=== PATIENT | female | born 1940 | race Caucasian/White ===

== ENCOUNTER → 2023-09-08 07:37 | Outpatient (REF) | payer MEDICARE, OTHER, SELFPAY ==
[2023-09-08 09:47] LABS: % Eosinophils 2.4 % (0-6); % Immature Granulocytes 0.3 % (0-0.5); % Lymphocytes 36.9 % (20.5-51.1); % Monocytes 8.2 % (1.7-9.3); % Neutrophils 51.2 % (42.2-75.2); Absolute Basophils 0.1 10^3/uL (0-0.2); Absolute Eosinophils 0.2 10^3/uL (0-0.7); Absolute Lymphocytes 2.3 10^3/uL (1.2-3.4); Absolute Monocytes 0.5 10^3/uL (0.1-0.6); Absolute Neutrophils 3.2 10^3/uL (1.4-6.5); Hematocrit 39.9 % (37.0-47.0); Hemoglobin 12.8 g/dL (12.0-16.0); Mean Corp Hgb Conc. 32.1 g/dL (33.0-37.0); Mean Corpuscular Hgb 29.2 pg (27.0-31.0); Mean Corpuscular Volume 90.9 fL (81.0-99.0); Mean Platelet Volume 9.7 fL (7.4-10.4); Nucleated Red Blood Cells % 0 %; Platelet Count 197 10^3/uL (130-400); Red Blood Cell Count 4.39 10^6/uL (4.20-5.40); Red Cell Dist. Width 14.6 % (11.5-14.5); White Blood Cell Count 6.2 10^3/uL (4.8-10.8)
[2023-09-08 12:00] LABS: ALT (SGPT) 11 U/L (0-35); AST (SGOT) 22 U/L (14-36); Albumin 4.2 g/dl (3.5-5.0); Alkaline Phosphatase 52 U/L (38-126); Blood Urea Nitrogen 22 mg/dl (7-17); Calcium 9.5 mg/dl (8.4-10.2); Carbon Dioxide 30 mmol/L (22-30); Chloride 100 mmol/L (98-107); Glucose 93 mg/dl (70-99); HDL Cholesterol 94 mg/dl; LDL Cholesterol, Calculated 202 mg/dl; Potassium 3.9 mmol/L (3.5-5.1); Sodium 136 mmol/L (135-145); Total Bilirubin 0.8 mg/dl (0.2-1.3); Total Cholesterol 311 mg/dl (50-199); Total Protein 6.7 g/dl (6.3-8.2); Triglyceride 76 mg/dl (10-149); Very Low Density Lipoprotein 15 mg/dl (0-30); eGFR > 60.00
[2023-09-08 12:28] LABS: TSH 1.95 uIU/ml (0.47-4.68)
[2023-09-08 13:04] LABS: Folate 10.1 ng/ml (2.76-20); Vitamin B12 419 pg/ml (239-931)
== END ==
LOC: HWRAD 07:37
PROVIDERS: ATTENDING PHYSICIAN Internal Medicine
DX: R47.89 Other speech disturbances (principal); I10 Essential (primary) hypertension; G30.1 Alzheimer's disease with late onset; E78.2 Mixed hyperlipidemia; K21.9 Gastro-esophageal reflux disease without esophagitis
CPT/HCPCS: 36415; 70450; 80053; 80061; 82607; 82746; 84443; 85025

== ENCOUNTER 2024-05-26 14:36 | Emergency (ER) | payer MEDICARE, OTHER, SELFPAY ==
--- NOTE | 2024-05-26 14:53 | ED.GENMED ---
ED Provider Triage
<BANDAR Barroso - Last Filed: 05/26/24 14:59>
-
Patient seen by provider in Triage?: Seen in Triage
Attestation: A medical screening examination has been initiated by a qualified medical provider. Based on the assessment performed at this time, it has been determined that an emergent medical condition may exist and the patient has been informed
that further medical evaluation and possible additional diagnostic testing may be needed.
HPI: Patient is an 84-year-old female who presents to the ER after mechanical fall. Patient tripped and fell landing on her right knee and left wrist. Pt also c/o of right upper arm pain.
GENERAL: Alert , in no apparent distress
EYE: No visual abnormalities.
NECK: Trachea midline
ENT: No visible abnormalities.
LUNGS: No acute respiratory distress
NEUROLOGICAL: Alert and oriented
SKIN: Skin intact. No visible changes.
MUSCULOSKELETAL: Moving extremities normally
PSYCH: Normal and appropriate interaction.
This is a medical evaluation conducted in person to initiate diagnostic evaluation and provide initial therapeutics. Please see further documentation by the treating clinician.
History of Present Illness
<BANDAR Barroso - Last Filed: 05/26/24 14:59>
General
Chief Complaint: Fall
Time Seen by Provider: 05/26/24 15:04
<Anish Thompson PA-C - Last Filed: 05/26/24 23:26>
History of Present Illness
History of Present Illness:
84-year-old female presents to the emergency department for ration of right upper arm left wrist pain after a fall. She states she was try to mitchell to her car because it was cold outside when she lost her balance. Denies head strike or loss of
consciousness. 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 Primarily complaining of left wrist pain, obvious deformity noted
Past History
<BANDAR Barroso - Last Filed: 05/26/24 14:59>
Past History
ED Past Medical History: HTN, Hypercholesterolemia and Other (Macular degeneration)
ED Past Surgical History: Appendectomy, Gynecological, Orthopedic and Tonsilectomy
Social History
Tobacco: Non-smoker
Alcohol: Occasional
Drug: None
Personal:
Living: alone
Employment: Not employed
Family History
Family History: Other
Review of Systems
<Anish Thompson PA-C - Last Filed: 05/26/24 23:26>
Review of Systems
Allergies reviewed?: Yes
All Other Systems: ROS reviewed and negative except as documented in HPI and ROS
Phy Exam
<Anish Thompson PA-C - Last Filed: 05/26/24 23:26>
Physical Exam
Physical Exam:
GEN: Well appearing, NAD, WDWN
HEENT: Normocephalic and atraumatic, oral mucosa moist, no scleral icterus
Cardiac: Regular rate
Lung: No respiratory distress, no tachypnea
MSK: Deformity of the left wrist, neurovascularly intact distal to the injury. Tenderness to the right proximal upper arm with no obvious deformity, right upper extremity range of motion profoundly limited due to pain. No deformity or swelling to
the right status post bilateral TKA
Skin: Good color, no pallor or jaundice, no rashes
Neuro: AO x3, moves all extremities freely
Psych: Calm, cooperative
Course
<BANDAR Barroso - Last Filed: 05/26/24 14:59>
Orders/Labs/Results
Orders:
Orders
05/26/24 14:56
Humerus, Right 2 Views [CR Humerus - Right Min 2 View*] Urgent
Comment:
Reason For Exam: trauma
Knee, Right 4 or More Views [CR Knee- Right 4 Or More View*] Urgent
Comment:
Reason For Exam: trauma
Wrist, Left 3 Views CR [CR Wrist - Left Min 3 Views] Urgent
Comment:
Reason For Exam: trauma
05/26/24 14:[address] Cervical Spine W/o Iv Contr Urgent
Comment:
Reason For Exam: trauma
CT Head W/o Iv Contrast Urgent
Comment:
Reason For Exam: trauma
05/26/24 15:31
Fentanyl Citrate/Pf [Sublimaze] 50 mcg IV NOW STA
05/26/24 17:59
CR Wrist - Left Min 2 Views Urgent
Reason For Exam: post reduction
Vital Signs
Initial and Last Documented VS:
Initial Vital Signs
Temp Pulse Resp BP Pulse Ox
98.1 F 78 18 200/105 98
05/26/24 14:54 05/26/24 14:54 05/26/24 14:54 05/26/24 14:54 05/26/24 14:54
Last Documented Vital Signs
Temp Pulse Resp BP Pulse Ox
98.1 F 75 15 180/98 98
05/26/24 14:54 05/26/24 19:39 05/26/24 19:39 05/26/24 19:39 05/26/24 19:39
<Anish Thompson PA-C - Last Filed: 05/26/24 23:26>
Orders/Labs/Results
Orders:
Orders
05/26/24 14:56
Humerus, Right 2 Views [CR Humerus - Right Min 2 View*] Urgent
Comment:
Reason For Exam: trauma
Knee, Right 4 or More Views [CR Knee- Right 4 Or More View*] Urgent
Comment:
Reason For Exam: trauma
Wrist, Left 3 Views CR [CR Wrist - Left Min 3 Views] Urgent
Comment:
Reason For Exam: trauma
05/26/24 14:59
CT Cervical Spine W/o Iv Contr Urgent
Comment:
Reason For Exam: trauma
CT Head W/o Iv Contrast Urgent
Comment:
Reason For Exam: trauma
05/26/24 15:31
Fentanyl Citrate/Pf [Sublimaze] 50 mcg IV NOW STA
05/26/24 17:59
CR Wrist - Left Min 2 Views Urgent
Reason For Exam: post reduction
Vital Signs
Initial and Last Documented VS:
Initial Vital Signs
Temp Pulse Resp BP Pulse Ox
98.1 F 78 18 200/105 98
05/26/24 14:54 05/26/24 14:54 05/26/24 14:54 05/26/24 14:54 05/26/24 14:54
Last Documented Vital Signs
Temp Pulse Resp BP Pulse Ox
98.1 F 75 15 180/98 98
05/26/24 14:54 05/26/24 19:39 05/26/24 19:39 05/26/24 19:39 05/26/24 19:39
Procedures
<Anish Thompson PA-C - Last Filed: 05/26/24 23:26>
Joint/Fracture Reduction
Left Wrist:
Indication for procedure:: Displaced distal radius fracture
Procedure completed by: Anish Thompson PA-C
Joint reduced: without anesthesia
Anesthesia/sedation: 1% Lidocaine and Other (hematoma block)
Injury was: closed
Further treatement: needs further treatment
Post reduction exam: stable
Capillary Refill: normal
Normal distal neurovascular exam?: Yes
<Anish Thompson PA-C - Last Filed: 05/26/24 23:26>
MDM/Problems Addressed
MDM/Problems Addressed:
Left distal radius fracture was reduced at bedside after hematoma block and splinted with a sugar-tong splint. Outpatient orthopedic follow-up advised. Discharged in the care of her daughter
<Anish Thompson PA-C - Last Filed: 05/26/24 23:26>
*Critical Care Note
Total Time (30-74mins, 75-104mins- exclusive of procedures): Not Applicable
ED Attending Note
<BANDAR Barroso - Last Filed: 05/26/24 14:59>
-
Portions of this chart may have been created with voice recognition software.� Occasional wrong word or��sound alike� substitutions may have occurred due to the inherent limitations of voice recognition software.
Discharge Plan
Departure
Patient Disposition: Home (Routine Discharge)
Date of Disposition: 05/26/24
Time of Disposition: 18:27
Patient with high blood pressure during this ER visit?: No
Discharge Problem:
Distal radius fracture, left
Instructions: Colles' Fracture (DC)
Prescriptions:
No Action
rosuvastatin 20 MG tablet
20 mg PO QPM
pantoprazole 40 MG tablet,delayed release (DR/EC)
40 mg PO DAILY 0RF
apixaban [Eliquis] 5 MG tablet
5 mg PO BID
ciprofloxacin HCl 500 MG tablet
500 mg PO Q12
alprazolam 0.5 MG tablet
0.5 mg PO BID PRN (Reason: severe anxiety) Qty: 12 0RF
Referrals:
Fabricio Alvarado MD [Active] - Call in 1-3 days for appt
Activity Restrictions/Additional Instructions:
Return to the ER if you develop numbness of the hand
You will need to call the listed Orthopedic doctor tomorrow to schedule a follow up appointment
The wrist splint must stay on at all times, do not remove for any reason; it CANNOT GET WET
Unrelated to your wrist, your CT scan of your neck showed a lesion in your 7th cervical (neck) vertebrae. It is not clear whether this is a benign lesion or a malignant lesion. This should be followed up with an MRI or bone scan, which can be
ordered by your primary care physician
Interventions
Interventions:
*Risk Screen - Suicide Last Done: 05/26/24 14:54
*General Assessment Last Done: 05/26/24 14:54
*Neglect/Abuse Screening Last Done: 05/26/24 14:54
*Nursing Disposition Last Done: 05/26/24 19:39
ED-Musculoskeletal Assessment Last Done: 05/26/24 16:43
ED- Neurological Assessment Last Done: 05/26/24 16:42
ED-Skin Assessment Last Done: 05/26/24 16:43
Discharge Date and Time
Discharge Date/Time: 05/26/24 19:40
Print Language: CHINESE
[2024-05-26 14:54] VITALS: BP 200/105
[2024-05-26] MEDS: SUBLIMAZE 50 MCG IV (15:58)
[2024-05-26 19:39] VITALS: BP 180/98
== END 2024-05-26 19:40 | disposition home or self-care (01) ==
LOC: EMR 14:36
PROVIDERS: EMERGENCY PHYSICIAN Emergency Medicine
DX: S52.532A Colles' fracture of left radius, initial encounter for closed fracture (principal); S52.615A Nondisplaced fracture of left ulna styloid process, initial encounter for closed fracture; W01.0XXA Fall on same level from slipping, tripping and stumbling without subsequent striking against object, initial encounter
CPT/HCPCS: 25605; 99285; 96374; 70450; 72125; 73060; 73100; 73110; 73564

== ENCOUNTER 2024-05-28 08:41 | Emergency (ER) | payer MEDICARE, OTHER, SELFPAY ==
[2024-05-28 08:44] VITALS: BP 168/81
[2024-05-28] MEDS: ULTRAM 25 MG PO (09:45)
[2024-05-28 09:51] VITALS: BMI 24.6
--- NOTE | 2024-05-28 10:31 | ED.GENMED ---
History of Present Illness
General
Chief Complaint: Musculo-Skeletal Complaint
Source: patient and family (Son)
Exam Limitations: none
Time Seen by Provider: 05/28/24 09:12
Nursing documentation reviewed up to this point in time: agreed with
History of Present Illness
History of Present Illness:
84-year-old female with history as documented presents to the emergency room with uncontrolled left wrist pain from a broken wrist. Patient was seen in the emergency room 2 days ago after a mechanical slip and fall on ice with a left wrist
fracture. Fracture was reduced and splinted and she was discharged with a referral to orthopedist. Patient reports that she has been unable to sleep and is having severe pain from her wrist fracture which prompted her to come back to the ER. She
has been taking Tylenol [id number] and this morning had a dose of her son's oxycodone 5 mg and this did not help with the pain. She denies any additional falls or trauma.
Past History
Past History
ED Past Medical History: HTN, Hypercholesterolemia and Other (Macular degeneration)
ED Past Surgical History: Appendectomy, Gynecological, Orthopedic and Tonsilectomy
Social History
Tobacco: Non-smoker
Alcohol: Occasional
Drug: None
Personal:
Living: alone
Employment: Not employed
Family History
Family History: Other
Review of Systems
Review of Systems
All Other Systems: ROS reviewed and negative except as documented in HPI and ROS
Musculoskeletal: Reports joint pain
Phy Exam
Physical Exam
Physical Exam:
General: Well appearing and non-toxic
HEENT: protecting airway
Neck: appears supple
CV: No evidence of cyanosis
Resp: No accessory muscle use
Abd: Non-distended
Extremities: Patient has a sugar-tong splint in place on the left arm; she does have brisk capillary refill in all digits distally; I took the splint down, she does have some swelling of the wrist and bruising but still strong left radial pulse,
neuro intact distal left upper extremity
Neuro: Alert
Psych: Normal affect
Skin: Intact
Scores
Heart Failure Risk
Heart Failure Risk Score: Not Applicable
Heart Score for Chest Pain Patients
STEMI patient?: Not applicable
Withdrawal Assessment of Alcohol
Withdrawal Assessment Completed?: Not applicable
Course
Orders/Labs/Results
Orders:
Orders
05/28/24 09:30
CR Wrist - Left Min 3 Views Urgent
Comment:
Reason For Exam: worsening wrist pain
05/28/24 09:32
Tramadol HCl [Ultram] 25 mg PO ONCE ONE
05/28/24 09:52
Case Management Consult ONCE
Case Management Consult: Other
Comment: family request
05/28/24 10:27
Ketorolac [Toradol] 30 mg IM NOW STA
Vital Signs
Initial and Last Documented VS:
Initial Vital Signs
Temp Pulse Resp BP Pulse Ox
36.8 C 88 20 168/81 98
05/28/24 08:44 05/28/24 08:44 05/28/24 08:44 05/28/24 08:44 05/28/24 08:44
Last Documented Vital Signs
Temp Pulse Resp BP Pulse Ox
36.8 C 88 20 168/81 98
05/28/24 08:44 05/28/24 08:44 05/28/24 08:44 05/28/24 08:44 05/28/24 08:44
MDM/Problems Addressed
Differential Diagnosis Includes:
Wrist fracture
MDM/Problems Addressed:
84-year-old female presents to the emergency room with uncontrolled pain from left wrist fracture. Hypertensive otherwise normal vitals. Physical exam as above. She does have brisk capillary refill with splint in place; I took the splint down and
she has a strong radial pulse, bruising and swelling around the wrist. I applied extra padding around the wrist as well as the elbow. I loosened the splint when reapplying. Patient did have significant improvement in her pain with this measure
but still reporting pain and requesting additional medications. Repeat x-ray no changes. She was given Toradol and tramadol here and will start on regimen of Tylenol/Motrin [id number], aggressive icing and tramadol for breakthrough pain.
Patient and family are comfortable with this. Family is concerned about her functional state recently with her wrist fracture and requested to speak to case management�I consulted case management to evaluate. Case management provided resources
offered visiting nurse and other help for home. Patient and family comfortable discharge at this point. All questions answered.
*Pulse Oximetry
Patient hypoxic: no
*Critical Care Note
Total Time (30-74mins, 75-104mins- exclusive of procedures): Not Applicable
Data Reviewed
Review of Other/Old Records Reveals: Radiology Studies
Source: patient, records and family
ED Attending Note
-
Portions of this chart may have been created with voice recognition software.� Occasional wrong word or��sound alike� substitutions may have occurred due to the inherent limitations of voice recognition software.
Discharge Plan
Departure
Patient Disposition: Home (Routine Discharge)
Date of Disposition: 05/28/24
Time of Disposition: 11:07
Patient with high blood pressure during this ER visit?: Yes
Discharge Problem:
Fracture of wrist
Instructions: Wrist Fracture (DC), Using Cold for Pain
Prescriptions:
New
tramadol 50 mg tablet
50 mg PO Q8H PRN (Reason: Pain) Qty: 14 0RF
Discontinued
Eliquis 5 MG tablet
5 mg PO BID
No Action
rosuvastatin 20 MG tablet
20 mg PO QPM
pantoprazole 40 MG tablet,delayed release (DR/EC)
40 mg PO DAILY 0RF
ciprofloxacin HCl 500 MG tablet
500 mg PO Q12
alprazolam 0.5 MG tablet
0.5 mg PO BID PRN (Reason: severe anxiety) Qty: 12 0RF
Referrals:
Fabricio Alvarado MD [Active] - Call in 1-3 days for appt
Amol Kumar MD [Family Provider] -
Activity Restrictions/Additional Instructions:
You were seen in the emergency room because you are having uncontrolled pain from your broken wrist. The emergency room I applied extra padding to your splint and loosened the splint. You were treated with pain medications. For the next 72 hours
you should consistently ice your wrist over top of the splint�apply ice for 15 minutes at a time and try to do this 3-5 times daily at least. You should take the following pain medications to control your symptoms:
Tylenol 1000 mg every 6 hours
Ibuprofen 400 mg every 6 hours
Tramadol 50 mg every 8 hours as needed
You should follow-up with the orthopedic doctor as instructed.
Thank you for visiting the Emergency Department at [facility].
1. Please schedule a follow up appointment as directed. Call first thing tomorrow morning to make an appointment.
2. If indicated, please take your medications as instructed and indicated on discharge paperwork.
3. If any of your symptoms do not improve, or persist, or become more severe within 6-12 hours, please return to the emergency department for further care.
4. Please return to the emergency department if you develop a headache, neck pain/stiffness, fever greater than 100.4F, chest pain, shortness of breath, persistent nausea, vomiting, slurred speech, difficulty walking, numbness/tingling, weakness,
signs of infection or any other symptoms that are worrisome to you.
Please call [phone] if you have any questions.
Interventions
Interventions:
*Risk Screen - Suicide Last Done: 05/28/24 08:46
*General Assessment Last Done: 05/28/24 09:16
*Neglect/Abuse Screening Last Done: 05/28/24 09:16
ED- Fall Risk Assessment Last Done: 05/28/24 09:16
*ED COVID-19 Vaccine History Last Done: 05/28/24 09:16
*Nursing Disposition Last Done: 05/28/24 11:09
ED-Musculoskeletal Assessment Last Done: 05/28/24 09:16
Discharge Date and Time
Print Language: SPANISH
--- NOTE | 2024-05-28 10:43 | CM ---
CM met with patient and son in room. Patient confirmed that she lives with daughter. Son stated that often time patient's daughter gets frustrated with patient. CM discussed SNF and that it will be private pay respite. CM discussed home care.
Patient declined skilled services. CM provided written information on private pay nurse's aides.
CM will remain available.
[2024-05-28] MEDS: TORADOL 30 MG IM (10:57)
== END 2024-05-28 11:45 | disposition home or self-care (01) ==
LOC: EMR 08:41
PROVIDERS: EMERGENCY PHYSICIAN Emergency Medicine; FAMILY PHYSICIAN Specialist
DX: S52.572A Other intraarticular fracture of lower end of left radius, initial encounter for closed fracture (principal); S52.615A Nondisplaced fracture of left ulna styloid process, initial encounter for closed fracture; W00.0XXA Fall on same level due to ice and snow, initial encounter; I10 Essential (primary) hypertension; E78.00 Pure hypercholesterolemia, unspecified; H35.30 Unspecified macular degeneration
CPT/HCPCS: 99283; 29125; 96372; 73110

== ENCOUNTER 2024-06-07 04:14 | Inpatient (IN) | payer MEDICARE, OTHER, SELFPAY ==
[2024-06-07] VITALS (58 sets, daily range): BP systolic 55–136; BP diastolic 36–91; BMI 20.4; BMI 20.3
[2024-06-07 02:29] LABS: Hematocrit 37.9 % (37.0-47.0); Hemoglobin 12.5 g/dL (12.0-16.0); Mean Corpuscular Hgb 29.1 pg (27.0-31.0); Mean Corpuscular Volume 88.1 fL (81.0-99.0); Mean Platelet Volume 9.6 fL (7.4-10.4); Platelet Count 256 10^3/uL (130-400); Red Cell Dist. Width 14.6 % (11.5-14.5); White Blood Cell Count 8.4 10^3/uL (4.8-10.8)
[2024-06-07 02:38] LABS: Lactic Acid 3.5 mmol/L (0.7-2.0)
[2024-06-07 02:40] LABS: ALT (SGPT) 20 U/L (0-35); AST (SGOT) 27 U/L (14-36); Albumin 4.2 g/dl (3.5-5.0); Alkaline Phosphatase 82 U/L (38-126); Blood Urea Nitrogen 20 mg/dl (7-17); Calcium 9.7 mg/dl (8.4-10.2); Carbon Dioxide 22 mmol/L (22-30); Chloride 101 mmol/L (98-107); Estimated Creatinine Clearance 51 ml/min; Glucose 161 mg/dl (70-99); Potassium 4.2 mmol/L (3.5-5.1); Sodium 136 mmol/L (135-145); Total Bilirubin 0.7 mg/dl (0.2-1.3); Total Protein 6.8 g/dl (6.3-8.2); eGFR > 60.00
--- NOTE | 2024-06-07 02:44 | ED.GENMED ---
History of Present Illness
General
Chief Complaint: Chest Pain
Source: patient and family (daughter)
Time Seen by Provider: 06/07/24 01:59
History of Present Illness
History of Present Illness:
84-year-old female presents to the emergency room with crushing chest pain. Patient states she awoke from sleep around 12:00 with this discomfort. She rates it a 10 out of 10. No history of MIs. Nothing seems to make the pain better or worse.
Chest discomfort radiates to the neck. She denies having episodes similar to this in the past. Medics gave 4 baby aspirin en route.
Past History
Past History
ED Past Medical History: HTN, Hypercholesterolemia and Other (Macular degeneration)
ED Past Surgical History: Appendectomy, Gynecological, Orthopedic and Tonsilectomy
Social History
Tobacco: Non-smoker
Alcohol: Occasional
Drug: None
Personal:
Living: alone
Employment: Not employed
Family History
Family History: Other
Phy Exam
Physical Exam
Physical Exam:
General: Awake, appears stated age, in acute distress from chest pain
Vitals: Hypotensive, tachycardic
Head: Atraumatic
Eyes: Pupils equal, EOMI
Throat: Airway intact, no exudates
Neck: Trachea midline
Lungs: Clear and equal b/l
Heart: Regular rate, no murmurs
Abd: Soft, Nontender, No pulsatile mass
Neuro: Nonfocal
Skin: Warm, dry, no rash
Extremities: pulses equal b/l, no edema
Scores
Heart Score for Chest Pain Patients
STEMI patient?: Yes
Course
Orders/Labs/Results
Orders:
Orders
06/07/24 02:15
Complete Blood Count/With Diff Urgent
Comprehensive Metabolic Panel Urgent
PTT Urgent
Troponin I Urgent
06/07/24 02:17
Lactic Acid Urgent
06/07/24 02:22
Fentanyl Citrate/Pf [Sublimaze] 100 mcg .ROUTE .STK-MED ONE
06/07/24 02:28
ABO2 Urgent
BBK Wristband Number:
Associate notified that ABO2 has been ordered: [id number]
Date: 06/07/24
Time: 02:25
Director Of Search Engine Marketing ID: [id number]
06/07/24 02:44
Fentanyl Citrate/Pf [Sublimaze] 100 mcg .ROUTE .STK-MED ONE
Heparin 10,000 units .ROUTE .STK-MED ONE
Heparin 1000 Units/500 ml [Heparin] 1,000 units in 500 ml .ROUTE .STK-MED
Heparin Sodium,Porcine/Ns/Pf [Heparin 2000 Units/1000 ml] 2,000 unit in 1,000 ml .ROUTE .STK-MED
Lidocaine HCl/Pf [Xylocaine-Mpf 1% Vial] 100 mg .ROUTE .STK-MED ONE
Midazolam HCl [Versed] 2 mg .ROUTE .STK-MED ONE
Verapamil Injectable [Isoptin/Verapamil Injection] 5 mg .ROUTE .STK-MED ONE
06/07/24 02:45
Heparin 1000 Units/500 ml [Heparin] 1,000 units in 500 ml .ROUTE .STK-MED
Nitroglycerin [Tridil] 1,500 mcg .ROUTE .STK-MED ONE
06/07/24 02:48
Lidocaine HCl/Pf [Xylocaine-Mpf 1% Vial] 50 mg .ROUTE .STK-MED ONE
06/07/24 02:57
Fentanyl Citrate/Pf [Sublimaze] 100 mcg .ROUTE .STK-MED ONE
Heparin 5,000 units .ROUTE .STK-MED ONE
06/07/24 02:58
Ticagrelor [Brilinta] 180 mg .ROUTE .STK-MED ONE
06/07/24 03:20
Diltiazem HCl [Cardizem] 25 mg .ROUTE .STK-MED ONE
06/07/24 03:48
Admit Patient As Directed
Co-Sign Provider:
Level of Care: Inpatient admission
Assign to:: IVU
Physician / Group: Chung
Diagnosis: Atrial fibrillation and chest discomfort
Reason for Hospitalization: atrial fibrillation and chest discomfort
Expected length of stay greater than two midnights?: Yes
ELOS- Estimated Length of Stay in days: 3
I certify the patient meets the requirements for IP care: Yes
Code Status As Directed
Resuscitation Status: Full Code
Activity As Directed
Activity Level: Bedrest
Comment: refer to hemostasis device used for bedrest duration, then ambulate ad lorrie
Card Punching Machine Operator Procedure As Directed
Cardiac Cath Procedure: cardiac catheterization
Femoral Artery Hemostasis Method As Directed
Procedure performed:: Cardiac Catheterization
Type of femoral hemostasis method used:: Internal Closure Device
Duration of bedrest (hours):: 3
Call provider if:: hematoma present after hemostasis achieved
Head of Bed-Restrictions As Directed
Comment: may elevate head of bed 30 degrees
Notify MD As Directed
Notify physician if: immediately for chest pain or bleeding from access site(s)
Site Checks As Directed
Check access site for bleeding/hematoma: Yes
Comment: on arrival, Q15min x4, Q30min x2, Q1 hr x2, Q2 hr x2, Q4 hr or per
protocol
Vascular Checks As Directed
Location: distal to access site - pulse check
Frequency: Other
Comment: on arrival, Q15min x4, Q30min x2, Q1 hr x2, Q2 hr x2, Q4 hr or per protocol
Vital Signs As Directed
Frequency: Other
Additional Instructions:: on arrival, Q15min x4, Q30min x2, Q1 hr x2, Q2 hr x2, then Q4 hr or per unit
protocol
PRN Pain Medication Management As Directed
May give lesser potent ordered pain med per pt: Yes
preference::
Protocol:: Medication orders for pain may be administered in a
manner that supports deferring to patient preference
when the pt is:
- Requesting an ordered lesser potent pain medication.
Least to most potent pain medications are defined
as: acetaminophen < NSAID < tramadol < opioids
(morphine, oxycodone, hydromorphone).
- Requesting a lesser dose of the same medication IF
ORDERED.
- Requesting a less intrusive route of administration
if both routes are prescribed by the provider (PO <
IV).
06/07/24 03:50
Heparin Protocol- PTT Orders As Directed
PTT per Heparin protocol: -Obtain CBC and baseline PTT - if not already collected.
-Obtain PTT 6 hours from start of infusion. Then, every 6 hours until 2 consecutive
PTT's are therapeutic. Then, PTT Daily.
-With each rate change, obtain PTT every 6 hours until 2 consecutive PTT's are
therapeutic. Then, PTT Daily.
Notify MD As Directed
Notify physician if: PTT is greater than or equal to 200.
06/07/24 03:56
ECG [Electrocardiogram (*1)] Urgent
Reason for Study: Chest Pain
Cardiology Consult: Maurilio Wilkes
06/07/24 03:59
Echo 2D MMode Color/Doppler Routine
Reason for Study: chest pain and afib
Cardiology Consult: Maurilio Wilkes
06/07/24 04:00
Diltiazem 125 mg/125 ml Nss [Cardizem] 125 mg in 125 ml IV PER PROTOCOL
Initial dose in mg/hr, then titrate:: 10
Titrate to keep:: Heart rate 80-100 bpm
Titrate by mg/hr:: 5 mg/hr
Frequency of titrations (minutes):: 15
Maximum dose in mg/hr:: 15
Flush (0.9% Sodium Chloride) [Flush (Nss)] See Dose Instructions IV PER PROTOCOL
06/07/24 04:09
Lorazepam [Ativan] 0.5 mg PO Q4HPRN PRN
06/07/24 04:11
Acetaminophen [Tylenol] 650 mg PO Q4HPRN PRN
06/07/24 05:02
Type+Screen Urgent
BBK Wristband Number:
Complete Blood Count/No Diff Urgent
Comment: Obtain baseline before beginning heparin infusion if not already collected
PTT Urgent
Comment: Obtain baseline before beginning heparin infusion if not already collected
Troponin I Q6H
06/07/24 06:00
ECG [Electrocardiogram (*1)] Q6
Reason for Study: Chest Pain
Cardiology Consult: Maurilio Wilkes
06/07/24 08:00
Aspirin Chewable [Low Strength Aspirin] 81 mg PO DAILY
Heparin 05852 Units/250 ml 25,000 units in 250 ml IV PER PROTOCOL
Weight to be used for heparin protocol in kilograms (kg):: 55.6
Protocol:: Cardiac Tx/Acute Coronary
PTT Goal Range to be used:: PTT 73 to 111 seconds
Order type:: Initial
INITIAL Infusion Dose (UNITS/KG/hr) & then follow protocol:: 12 units/kg/hr
Infusion Dose in UNITS/hr & then follow protocol (UNITS/hr):: 650
INFUSION RATE in mL/hr & then follow protocol (mL/hr):: 6.5
PTT less than or equal to 64 seconds:: Increase rate by 200 units/hr (+ 2 mL/hr)
PTT 64.1 to 72.9 seconds:: Increase rate by 100 units/hr (+ 1 mL/hr)
PTT 73 to 111 seconds:: Target Range. No change in rate.
PTT 111.1 to 130.9 seconds:: Decrease rate by 100 units/hr (- 1 mL/hr)
PTT 131 to 199.9 seconds:: HOLD for 1 hr. Then decrease rate by 200 units/hr (- 2 mL/hr)
PTT greater than or equal to 200 seconds:: HOLD for 2 hrs & Notify Provider. Then decrease by 200 units/hr (-
2 mL/hr)
Lab follow-up:: Each change, PTT q6h until 2 consecutive are therapeutic. Then PTT
daily.
Pantoprazole [Protonix] 40 mg PO DAILY
06/07/24 10:00
Troponin I Q6H
06/07/24 12:00
ECG [Electrocardiogram (*1)] Q6
Reason for Study: Chest Pain
Cardiology Consult: Maurilio Wilkes
06/07/24 16:00
Troponin I Q6H
06/07/24 18:00
ECG [Electrocardiogram (*1)] Q6
Reason for Study: Chest Pain
Cardiology Consult: Maurilio Wilkes
06/09/24 06:00
Complete Blood Count/No Diff Q2D
Comment: Notify MD if platelet count is <130,000 or decreases by 50% from baseline
06/11/24 06:00
Complete Blood Count/No Diff Q2D
Comment: Notify MD if platelet count is <130,000 or decreases by 50% from baseline
06/13/24 06:00
Complete Blood Count/No Diff Q2D
Comment: Notify MD if platelet count is <130,000 or decreases by 50% from baseline
06/15/24 06:00
Complete Blood Count/No Diff Q2D
Comment: Notify MD if platelet count is <130,000 or decreases by 50% from baseline
06/17/24 06:00
Complete Blood Count/No Diff Q2D
Comment: Notify MD if platelet count is <130,000 or decreases by 50% from baseline
06/19/24 06:00
Complete Blood Count/No Diff Q2D
Comment: Notify MD if platelet count is <130,000 or decreases by 50% from baseline
06/21/24 06:00
Complete Blood Count/No Diff Q2D
Comment: Notify MD if platelet count is <130,000 or decreases by 50% from baseline
06/23/24 06:00
Complete Blood Count/No Diff Q2D
Comment: Notify MD if platelet count is <130,000 or decreases by 50% from baseline
Abnormal Lab Results
06/07/24 06/07/24 06/07/24
02:15 02:17 03:20
RDW 14.6 H %
(11.5-14.5)
Absolute Lymphs (auto) 4.5 H 10^3/uL
(1.2-3.4)
Neutrophils % 36.6 L %
(42.2-75.2)
Lymphocytes % 53.9 H %
(20.5-51.1)
BUN 20 H mg/dl
(7-17)
Glucose 161 H mg/dl
(70-99)
Lactic Acid 3.5 H mmol/L
(0.7-2.0)
POC ACT Low Range 179 H Seconds
(116-155)
06/07/24 02:15
06/07/24 02:15
Vital Signs
Initial and Last Documented VS:
Initial Vital Signs
Pulse Resp BP Pulse Ox
130 24 55/36 95
06/07/24 02:01 06/07/24 02:01 06/07/24 02:01 06/07/24 02:01
Last Documented Vital Signs
Pulse Resp BP Pulse Ox
149 24 129/86 98
06/07/24 02:42 06/07/24 02:42 06/07/24 02:50 06/07/24 02:42
MDM/Problems Addressed
Differential Diagnosis Includes:
Posterior wall DC, acute coronary syndrome, A-fib with rapid ventricular response
MDM/Problems Addressed:
Patient presents with chest pain that is severe. The patient looks ill. She is hypotensive, moaning. EKG clearly abnormal but not quite STEMI criteria. ST depression is noted diffusely and I am concerned she may be having a posterior DC. EKG
sent to cardiology on-call, Dr. Marino as well as certified pharmacy tech on-call Dr. Holloway. They are in agreement with activating the Card Punching Machine Operator for urgent cardiac catheterization. Patient persistently hypotensive despite fluid bolus. Levophed started.
Patient's blood pressure did improve with Levophed.
Chronic conditions affecting care: HTN and Other (High cholesterol)
*Pulse Oximetry
Patient hypoxic: no
*EKG
Interpreted by ED Provider?: Yes
Interpretation: abnormal
Heart Rate: 143
Rate: tachycardiac
Rhythm: a-fib
Ischemia: ST depression (Anterior, lateral and inferior leads)
*Professor Of Religious Studies Interpretation
Rate: tachycardiac
Interpretation: abnormal
Heart Rate: 143
Rhythm: a-fib
*Critical Care Note
Total Time (30-74mins, 75-104mins- exclusive of procedures): 35 min
comment:
Critical care statement: A total of 35 minutes of critical care time was provided for this patient. This includes management of unstable vital signs, evaluation of the patient at bedside, reviewing the patient's pertinent medical records, discussion
with consultants, review of old EKGs and review of pertinent medical records. This time with separate from time utilized to perform the aforementioned documented procedures
Patient Management
Social determinants of health affecting care: Strong social support
Discussion with other providers: Plant And Equipment Worker (Dr. Wilkes)
ED Attending Note
-
Portions of this chart may have been created with voice recognition software.� Occasional wrong word or��sound alike� substitutions may have occurred due to the inherent limitations of voice recognition software.
Discharge Plan
Departure
Patient Disposition: Admit
Date of Disposition: 06/07/24
Time of Disposition: 02:44
Admit to: chemistry lab instructor
Presentation/result/management discussed w/ accepting MD/DO: Dr. Wilkes
Condition: Critical
Discharge Problem:
Acute DC
Interventions
Interventions:
*Risk Screen - Suicide Last Done: 06/07/24 01:57
*General Assessment Last Done: 06/07/24 01:57
*Neglect/Abuse Screening Last Done: 06/07/24 01:57
ED- Fall Risk Assessment Last Done: 06/07/24 01:57
*ED COVID-19 Vaccine History Last Done: 06/07/24 01:57
*Nursing Disposition Last Done: 06/07/24 02:59
ED- Cardiac Assessment Last Done: 06/07/24 02:08
Discharge Date and Time
Discharge Date/Time: 06/07/24 02:50
[2024-06-07 02:50] LABS: Troponin I < 0.012 ng/ml
[2024-06-07 02:52] LABS: % Basophils 0.8 % (0-2); % Eosinophils 1.3 % (0-6); % Immature Granulocytes 0.2 % (0-0.5); % Lymphocytes 53.9 % (20.5-51.1); % Monocytes 7.2 % (1.7-9.3); % Neutrophils 36.6 % (42.2-75.2); Absolute Basophils 0.1 10^3/uL (0-0.2); Absolute Eosinophils 0.1 10^3/uL (0-0.7); Absolute Lymphocytes 4.5 10^3/uL (1.2-3.4); Absolute Monocytes 0.6 10^3/uL (0.1-0.6); Absolute Neutrophils 3.1 10^3/uL (1.4-6.5); Nucleated Red Blood Cells % 0 %
[2024-06-07 03:10] LABS: ACT-LR - POC 131 Seconds (116-155)
[2024-06-07 03:26] LABS: ACT-LR - POC 179 Seconds (116-155)
--- NOTE | 2024-06-07 04:18 | ITS.CL.CATH ---
Shop Assistant - Catheterization
Cardiac Catheterization
Procedure Report:
LEFT HEART CATHETERIZATION
Date of Procedure: June 07, 2024
Referring: [facility] Emergency Department
PROCEDURES:
1. Left heart catheterization with coronary and single-plane left ventriculography
INDICATION: This is an 84-year-old female who is somewhat of a poor historian. She lives with her daughter who is also somewhat of a poor historian. She reported the onset of chest heaviness this evening. She lives with her daughter and was
calling for help but her daughter could not hear her without her hearing aids in and the patient became increasingly agitated with development of worsened chest discomfort. 911 was called and her electrocardiogram was notable for atrial
fibrillation with a rapid ventricular response and marked anterior ST segment depression. She was found to be hypotensive and started on Levophed. She is referred for emergent coronary angiography with chest discomfort and concern for potential
posterior infarct. During the procedure her troponin returned undetectable. She had been having symptoms probably for about an hour prior to arrival.
She has been prescribed medications for hypertension, anxiety, hyperlipidemia, and depression. Her daughter states that she will take medications for a few days and then discontinue them. In the past she did have a history of a DVT in the setting
of sepsis and an acute illness. She did take apixaban twice daily reliably for a few months. Her daughter states that she is resistant to taking any medications.
ACCESS: Right common femoral artery, 6 Armenian sheath
HEMODYNAMICS : (mmHg)
AO (s/d) : 143/94, 116
LV (s/d) : 130/10
LVEDP : 15
CORONARY FINDINGS
DOMINANCE: Right
LEFT MAIN: Short and unobstructed
LEFT ANTERIOR DESCENDING: The LAD arises normally from the left main and runs in the anterior interventricular groove. There is moderate calcification in the mid LAD with a complex stenosis involving the origin of the second diagonal branch. The
mid LAD has a long 60-70% smooth narrowing beginning before the origin of the diagonal and extending beyond the second diagonal branch to the mid LAD. The second diagonal branch is a moderate caliber vessel with a 60% ostial narrowing and
bifurcation proximally into 2 daughter branches. The mid to distal LAD has only minor irregularities and there is WANDY-3 flow into the distal vessel.
CIRCUMFLEX: The circumflex is a medium caliber nondominant vessel giving rise to 3 obtuse marginal branches. Only minor irregularities are present
RIGHT CORONARY ARTERY: The right coronary artery is a dominant vessel. Mild ostial narrowing. No pressure dampening with engagement of a 6 Armenian diagnostic catheter. The RCA has only minor luminal irregularities over its course but no focal
obstructive stenosis. The PDA and posterolateral branch are both patent.
VENTRICULOGRAPHY: Left ventriculography was performed in an ALEGRIA projection. The digital single-plane left ventricular ejection fraction is visually estimated greater than 80% with near cavity obliteration. No regional wall motion abnormalities are
noted
RADIATION SUMMARY: Fluoro Time (min): 2.9, Dose (mGy): 335, DAP (Gy.cm2) : 25
Closure Device: 6 Armenian Angio-Seal RFA
CONCLUSIONS
1. Atrial fibrillation with rapid ventricular response
2. Complex coronary disease involving the mid LAD and diagonal branch with WANDY-3 flow into the distal vessel
3. Hyperdynamic left ventricle with LVH and no regional wall motion abnormalities
4. Undetectable troponin
RECOMMENDATIONS
1. Patient experienced no chest discomfort and angiography demonstrated WANDY-3 flow into all distal vessels.
2. IV Cardizem 20 mg bolus and 10 mg infusion was initiated with improvement in heart rate and blood pressure. The IV Levophed was weaned off.
3. We will continue to trend serial troponin.
4. I am concerned over medical compliance as her daughter states that it is very difficult for her to take any medication. Further management decisions will be made on the basis of troponin, echocardiogram, and atrial fibrillation
5. Will start IV heparin
Copy to: Dr. Wallace Melton
[2024-06-07] MEDS: NSS 250 IV (05:13)
[2024-06-07 05:19] LABS: Hematocrit 35.8 % (37.0-47.0); Hemoglobin 11.8 g/dL (12.0-16.0); Mean Corpuscular Hgb 29.4 pg (27.0-31.0); Mean Corpuscular Volume 89.3 fL (81.0-99.0); Mean Platelet Volume 9.5 fL (7.4-10.4); Platelet Count 234 10^3/uL (130-400); Red Blood Cell Count 4.01 10^6/uL (4.20-5.40); Red Cell Dist. Width 14.6 % (11.5-14.5)
[2024-06-07] MEDS: HEPARIN 25000 UNITS/250 ML IV ×2 (05:19→21:02)
[2024-06-07 05:33] LABS: APTT 49.8 Sec (23.4-35.0)
[2024-06-07] MEDS: CORDARONE 103 MG IV (05:33)
[2024-06-07 05:42] LABS: HDL Cholesterol 73 mg/dl; LDL Cholesterol, Calculated 170 mg/dl; Total Cholesterol 263 mg/dl (50-199); Triglyceride 103 mg/dl (10-149); Very Low Density Lipoprotein 20 mg/dl (0-30)
[2024-06-07] MEDS: CORDARONE 518 MG IV (05:45)
[2024-06-07 05:56] LABS: Troponin I 0.993 ng/ml
--- NOTE | 2024-06-07 06:00 | PTCARENOTE ---
Received pt from ICU,drowsy but comfortable,physical assessment preformed,right groin angio puncture site drsg clean dry intact soft to palp.VS stable,No resp distress.O2 sat 98%.Amio GTT,Hep GTT and Cardizem GTT maintained.HOB kept at 30
degrees.Pt oriented to IVU,sleeping after assessment.
[2024-06-07 06:12] LABS: TSH Reflex To Free T4 4.49 uIU/ml (0.47-4.68)
--- NOTE | 2024-06-07 06:21 | PTCARENOTE ---
Received pt on Cardizem gtt, HR 130s and BP systolic 80s, denies chest pain and SOB, Dr.Boland phillips texted and made aware, new orders placed to start AMIO gtt with bolus, start Hep gtt and give fluid bolus, see MAR, pt AAOx3 but forgetful and
anxious. Family at bedside, EKG and labs completed. report was given to GEOTHERMAL POWERPLANT MECHANIC HELPER, pt tx with all belongings, RN at bedside and tele monitor handoff completed.
[2024-06-07 09:04] LABS: Glycohemoglobin (HgbA1c) 5.6 % (4.0-5.6)
[2024-06-07] MEDS: LOW STRENGTH ASPIRIN 81 MG PO (09:16)
[2024-06-07] MEDS: PROTONIX 40 MG PO (09:17)
--- NOTE | 2024-06-07 11:25 | PTCARENOTE ---
recieved in bed, vascular checks in progress, r femoral site C/D/I, Afib/flutter in 120s on the monitor. BPs 90/60. cardizem gtt @10, amio gtt maintenance infusing. heparin gtt adjusted and is infusing @8.5. patient AAOx3, forgetful at times,
anxious, reassurance provided. family @bedside, ES offered, NPO orders noted for angiogram. trops drawn and sent, EKG completed. patient instructed on activity restrictions and calling the nurse for assistance
--- NOTE | 2024-06-07 11:52 | CM ---
Chart reviewed. Patient is independent of ADLS, lives with her daughter in a 1 [address], 3 FABRICIO, 0 DME. Patient with frequent falls recently. Requested PT evaluation. Plan is for the patient to return home. CM to follow
[2024-06-07] MEDS: CARDIZEM 125 IV (12:03)
--- NOTE | 2024-06-07 14:18 | PTCARENOTE ---
patient converted to sinus. HR in the 60s. BP 107/57. PTT drawn and sent. assisted oob in the chair. MD at bedside to discuss further intervention.
[2024-06-07 14:31] LABS: APTT 57.3 Sec (23.4-35.0)
--- NOTE | 2024-06-07 15:35 | CM ---
Pricing on Eliquis 5mg BID is covered through the patient's [employer] PP, ID # [id number]. It will be $576, the patient has a $590 deductible, then it will cost $109.
Ashia will need a prior authorization. I will place a free 30 day coupon in the patient's red discharge folder.
[2024-06-07 15:45] LABS: ACT-LR - POC 268 Seconds (116-155)
[2024-06-07 16:29] LABS: ACT-LR - POC 248 Seconds (116-155)
--- NOTE | 2024-06-07 16:57 | ITS.CL.CATH ---
Researcher - Catheterization
Cardiac Catheterization
Procedure Report:
ANGIOPLASTY REPORT
Date of Procedure: June 07, 2024
Referring: Dr. Maurilio Wilkes
INDICATIONS: Elevated troponin with markedly abnormal ECG in the setting of atrial fibrillation with a rapid ventricular response. Angiography was performed with a possible STEMI alert with diffuse ST segment depression throughout the entire
precordial and inferior leads in the setting of atrial fibrillation with rapid ventricular response. Her ECG and symptoms normalized and her initial troponin was undetectable. Her symptoms and electrocardiographic changes resolved with better
heart rate control. She arrived to the catheterization laboratory on Levophed and left on an IV Cardizem drip with adequate blood pressure control. Her troponin subsequently became modestly elevated. I believe the clinical history, ECG, and
troponin elevation all suggest the hemodynamic significance of LAD stenosis. She is therefore brought back to the catheterization laboratory for stenting of the LAD and provisional stenting of the diagonal branch.
PROCEDURES:
1. Successful stenting of the mid LAD jailing the first diagonal branch with placement of a 2.75 x 26 mm Telly stent that was implanted at nominal pressures. Intravascular ultrasound was performed and the stent was postdilated distally with a 3.0
mm noncompliant balloon and proximally with a 3.75 mm noncompliant balloon
2. Intravascular ultrasound
ACCESS: Left common femoral artery, 7 [place] sheath
ANGIOPLASTY REPORT: The patient was brought back to the cardiac catheterization laboratory given the clinical history of dynamic ECG changes and elevated troponin in the setting of atrial fibrillation with rapid ventricular response. She had
received 180 mg loading dose of ticagrelor at 2:30 AM. Arterial access was obtained with ultrasound guidance and micropuncture technique with placement of a 7 [place] arterial sheath. 5000 units of intravenous heparin were administered and the ACT
was monitored throughout the procedure and maintained within therapeutic limits. The origin of the left main was cannulated with a 6 [place] EBU 3.5 guiding catheter. A long BMW guidewire crossed the ostial narrowing in the diagonal branch and was
advanced into a distal daughter branch. A short BMW guidewire was advanced to the apical LAD. Primary stenting of the LAD was undertaken with placement of a 2.75 x 26 mm [place] stent which was implanted in the mid LAD at nominal pressures. A second
long BMW guidewire was then advanced across the stent struts and into the diagonal branch. The jailed wire was removed. Intravascular ultrasound was then performed throughout the stented segment. The stent appeared well sized to the distal
vessel. The mid LAD luminal size was around 3 mm in the proximal LAD luminal diameter was closer to 4 mm. The mid LAD was postdilated with a 3 mm noncompliant balloon and proximal optimization was performed from the proximal portion of the stent
to the sravanthi. A 3.75 mm noncompliant balloon was -85 atmospheres from the proximal edge of the stent to the bifurcation. Angiography was notable for a ostial pinch at the origin of the diagonal branch but WANDY 3 flow distally and the
decision was made not to balloon or stent the origin of the diagonal branch.
COMPLICATIONS: None
RADIATION SUMMARY: Fluoro Time (min): 13.8, Dose (mGy): 517, DAP (Gy.cm2) : 33.3
CONCLUSION
1. Successful stenting of the mid LAD with a 2.75 x 26 mm Telly stent that was post dilated distally with a 3.0 mm NC balloon and proximally with a 3.75 x 8 mm NC balloon to 18 atmospheres at the proximal stent edge and 16 saray in the mid portion of
the stent. The ostium of the diagonal was pinched with WANDY 3 flow distally
RECOMMENDATIONS
1. Triple therapy with aspirin, Plavix, and Eliquis for 1 week then Plavix and Eliquis
2. Will resume heparin this evening
3. Patient received a 600mg loading dose of Plavix at the conclusion of the procedure
Copy to: Dr. Wallace Melton
[2024-06-07] MEDS: CRESTOR 20 MG PO (17:18)
[2024-06-07] MEDS: PACERONE 200 MG PO ×2 (17:19→22:33)
--- NOTE | 2024-06-07 17:23 | PTCARENOTE ---
Addendum entered by Mali Stern RN 06/07/24 18:25:
correction left fem artery access.
Original Note:
received patient from civil laboratory technician with right fem. artery angiosealed, dsg. D/I. IV amiodarone is infusing at 1mg/min, as per ordered, changed dosage to 0.5mg/min or 16.7cc. via right wrist. amiodarone 200mg po given as ordered. IV Cardizem gtt. D/C'd
as per ordered. IV NSS @ 83cc/hr. via left ant. patient has left cast on forearm from previous falls. EKG completed NSR, VSS. patient is oriented to person and date. has expressive aphasia, not new. family at bedside. oriented patient to call
romeo.
--- NOTE | 2024-06-07 21:52 | PTCARENOTE ---
Dgt at bedside with pt- Amio infusing @ 16.7 Ml/hr and Heparin gtt started @ 2100 as ordered with the ended rate of 8.5ml/hr. Pt without complaints of CP/lightheadedness. ambulating to the bathroom as a stand by assistance.
[2024-06-08] VITALS (15 sets, daily range): BP systolic 64–138; BP diastolic 53–93; PULSE 67; O2SAT 97–99; BMI 20.3
[2024-06-08] MEDS: CORDARONE 518 MG IV (01:10)
--- NOTE | 2024-06-08 02:43 | DOWNTIME ---
There was a [employer] Drawings Checker Downtime on 06/08/2024 from 0100 to 06/08/2023 at 0205 . Downtime documentation of patient's care, including medication administrations, has been reconciled in the electronic record per guidelines. Refer to the
patient's paper chart under the miscellaneous tab to see printed paper medication records and downtime forms.
[2024-06-08 03:39] LABS: Hematocrit 29.7 % (37.0-47.0); Mean Corp Hgb Conc. 33.7 g/dL (33.0-37.0); Mean Corpuscular Hgb 29.3 pg (27.0-31.0); Mean Corpuscular Volume 87.1 fL (81.0-99.0); Mean Platelet Volume 9.5 fL (7.4-10.4); Platelet Count 202 10^3/uL (130-400); Red Blood Cell Count 3.41 10^6/uL (4.20-5.40); White Blood Cell Count 7.4 10^3/uL (4.8-10.8)
[2024-06-08 03:52] LABS: APTT 86.1 Sec (23.4-35.0)
[2024-06-08 04:04] LABS: Albumin 3.2 g/dl (3.5-5.0); Blood Urea Nitrogen 15 mg/dl (7-17); Calcium 8.6 mg/dl (8.4-10.2); Carbon Dioxide 23 mmol/L (22-30); Chloride 105 mmol/L (98-107); Estimated Creatinine Clearance 59 ml/min; Glucose 111 mg/dl (70-99); Phosphorus 3.8 mg/dl (2.5-4.5); Potassium 3.8 mmol/L (3.5-5.1); Sodium 134 mmol/L (135-145); eGFR > 60.00
--- NOTE | 2024-06-08 06:09 | PTCARENOTE ---
Amio D/c'd per orders.
[2024-06-08] MEDS: FLUSH (NSS) 1 FLUSH IV ×2 (07:45→09:28)
[2024-06-08] MEDS: TYLENOL 650 MG PO ×3 (07:46→21:36)
[2024-06-08] MEDS: LOW STRENGTH ASPIRIN 81 MG PO (07:47)
[2024-06-08] MEDS: PACERONE 200 MG PO ×3 (07:47→21:36)
[2024-06-08] MEDS: PROTONIX 40 MG PO (07:47)
[2024-06-08] MEDS: PLAVIX 75 MG PO (07:47)
--- NOTE | 2024-06-08 07:55 | PTCARENOTE ---
Addendum entered by Kami Bhakta RN 06/08/24 08:14:
Heparin gtt running at 850 units/hr
Original Note:
The patient is awake, alert, and oriented. The patient has expressive aphasia and am unsure if she is oriented to place and time. Her vitals are stable. NSR with PACs is noted on the monitor. Her right groin is VASQUEZ, her left groin is c/d/i. She
complaints of tenderness at her left groin site but unable to rate it. Tylenol given as ordered. Her daughter is at the bedside. Her call walters is within reach.
--- NOTE | 2024-06-08 08:41 | W.PN.CARDCBS ---
Addendum entered and electronically signed by Karl Tobar MD 06/08/24 09:14:
I saw and examined the patient.
The ELECTROMATIC TYPIST or PA's note was reviewed and I agree with the note.
Comment: General: Well developed, well nourished in NAD.
Neck: Supple, no JVD, HJR, carotids +2 B/L, no bruits bilaterally.
Heart: Non displaced PMI, RRR, no murmurs, No S3, S4, no rubs.
Lungs: Clear to auscultation bilaterally, no wheeze, rhonchi, rubs bilaterally,
normal expiratory phase.
Extremities: No clubbing, cyanosis or edema bilaterally.
Neuro: Grossly nonfocal, awake, alert and oriented x3.
Stable cardiology status. Check ultrasound to rule out right groin pseudoaneurysm. Switch heparin to Eliquis. Plan is for aspirin Plavix and Eliquis for 1 week then Plavix and Eliquis alone. PT eval to evaluate for possible [facility]ci
facility placement versus home VNA/PT. Discussed with daughter at bedside in detail
Original Note:
Today's Communication / Plan
-
Check groin u/s rule out PSA
Switch heparin drip to Eliquis
Triple therapy for 1 week ASA/Plavix/Eliquis
Add low dose BB today
PT/OT eval for poss SNF vs home VN/PT
Impression / Plan
-
PCP: Wallace Coe MD
CDY: None, new to Maurilio Wilkes MD
84 yo WF with elevated troponin with markedly abnormal ECG in the setting of atrial fibrillation with a rapid ventricular response. Angiography was performed with a possible STEMI alert with diffuse ST segment depression throughout the entire
precordial and inferior leads in the setting of atrial fibrillation with rapid ventricular response. Her ECG and symptoms normalized and her initial troponin was undetectable. Her symptoms and electrocardiographic changes resolved with better
heart rate control. She arrived to the catheterization laboratory on Levophed and left on an IV Cardizem drip with adequate blood pressure control. Her troponin subsequently became modestly elevated. I believe the clinical history, ECG, and
troponin elevation all suggest the hemodynamic significance of LAD stenosis. She is therefore brought back to the catheterization laboratory for stenting of the LAD and provisional stenting of the diagonal branch.
06/07/24 PROCEDURES:
1. Successful stenting of the mid LAD jailing the first diagonal branch with placement of a 2.75 x 26 mm [place] stent that was implanted at nominal pressures. Intravascular ultrasound was performed and the stent was postdilated distally with a 3.0
mm noncompliant balloon and proximally with a 3.75 mm noncompliant balloon
2. Intravascular ultrasound
IMPRESSION:
NSTEMI
post PCI LAD 06/07/24
New Atrial fibrillation with rapid ventricular response
Hyperlipidemia
Anxiety
Possible underlying dementia
GERD
Medical noncompliance
Prior history of DVT while hospitalized for nephrolithiasis/sepsis
Recent fall with radial fracture 05/26/24
PLAN:
NSTEMI - post cath 2am with LAD/Diag disease, brought back for PCI LAD 06/07 in afternoon
troponin peaked 3.92, trending down
ECHO EF 70-75%, mild LVH, severely dilated LA, moderate TR
L groin with ecchymosis, tender, mild swelling
will check u/s now, stop heparin drip
If groin u/s stable will start OAC Eliquis for new Afib
Triple therapy ASA/Plavix/Eliquis 1 week then stop ASA
statin, will add low dose BB this am
Cardiac rehab c/s
f/u DCA 2-4 weeks
Afib with RVR- converted to SR yesterday afternoon
[id number] = 6
continue Amiodarone loading 200mg tid, stopped drip
will d/c on Amiodarone 200mg daily
Will start OAC if groin u/s stable
Will initiate low dose BB this am
Hyperlipidemia - was supposed to be taking rosuvastatin 20mg but was not taking
LDL 170, will resume rosuvastatin will need repeat lipids/LFT's in 6-8 weeks
GERD - continue Protonix 40mg daily
Dispo- PT/OT eval today, with her multiple recent falls may need SNF for a few weeks at d/c vs home VN/PT
continue to monitor on tele
Progress Note - Size Worker
Subjective
Date of Service: June 08, 2024
denies cp, sob
Objective
Labs:
06/08/24 03:26
06/08/24 03:26
Labs
Hgb 10.0 g/dL (12.0-16.0) L 06/08/24 03:26
Hct 29.7 % (37.0-47.0) L 06/08/24 03:26
Plt Count 202 10^3/uL (130-400) 06/08/24 03:26
APTT 86.1 Sec (23.4-35.0) H 06/08/24 03:26
Sodium 134 mmol/L (135-145) L 06/08/24 03:26
Potassium 3.8 mmol/L (3.5-5.1) 06/08/24 03:26
BUN 15 mg/dl (7-17) 06/08/24 03:26
Creatinine 0.5 mg/dL (0.6-1.0) L 06/08/24 03:26
Glucose 111 mg/dl (70-99) H 06/08/24 03:26
Troponins
06/07/24 06/07/24 06/07/24
02:15 05:02 09:41
Troponin I < 0.012 0.993 H* D 3.250 H* D
06/07/24 06/07/24
15:45 21:15
Troponin I 3.920 H* 3.760 H*
Vital Signs and I&O:
Vital Signs
Temp Pulse Resp BP Pulse Ox
98.6 F 62 20 114/63 97
06/08/24 06:51 06/08/24 07:00 06/08/24 06:51 06/08/24 06:54 06/08/24 06:54
Vital Signs
Temp Pulse Resp BP Pulse Ox
98.6 F 62 20 114/63 97
06/08/24 06:51 06/08/24 07:00 06/08/24 06:51 06/08/24 06:54 06/08/24 06:54
Intake & Output
06/06/24 06/07/24 06/08/24 06/09/24
06:59 06:59 06:59 06:59
Intake Total 481.8 / 481.8
Output Total 250 / 250
Balance -250 / -250 481.8 / 481.8
Physical Exam
Physical Exam
NAD< AOX3
S1, S2, RRR
CTAB, non labored, no wheeze
SNTND bsx4
R fem soft, scattered mild ecchymosis
L groin slightly swollen, tender, moderate ecchymosis
[2024-06-08] MEDS: TOPROL XL 25 MG PO (09:28)
--- NOTE | 2024-06-08 12:24 | CM ---
Reviewed chart. Mrs. Schmidt was transferred to IVU. Met with Mrs. Schmidt and her daughter to review discharge plans. Reviewed the recommendations for SNF Rehab. Reviewed SNF/Rehab. options and they would like to explore [facility] and
[facility]. Telephone call to [facility] Admission to make the referral. Left message. Sent referral. Telephone call to [facility] to make the referral. Sent referral. Awaiting their decision regarding ability to accept and
bed availability. Medical work-up in progress. The discharge plan is to go to SNF/Rehab.-hopefully [facility] if bed availability when medically stable.
--- NOTE | 2024-06-08 12:34 | W.PN.UPDATE ---
Update Note
Progress Note Update
L groin u/s with small PSA, plan to have IR attempt thrombin injection today. Will hold OAC for now. Pt back on BR. Discussed results/plan with family/pt bedside and reviewed with Dr. Wilkse/Dr. Tobar. Will trend Hbg 12.4 -> 10.
FINDINGS and IMPRESSION: Partially thrombosed pseudoaneurysm is seen anterior to the left common femoral artery, measuring 1.5 x 0.8 x 0.6 cm. Pseudoaneurysm neck is elongated, and measures 4 mm in greatest diameter.
[2024-06-08 12:53] LABS: INR 1.04
--- NOTE | 2024-06-08 14:12 | W.PN.UPDATE ---
Update Note
Progress Note Update
Left groin pseudoaneurysm injected with 1000 units thrombin, with cessation of flow in the PSA. TRAVELING SECRETARY signal intact, + PT/DP signals after injection.
OK to restart heparin from pseudoaneurysm perspective.
--- NOTE | 2024-06-08 14:43 | PTCARENOTE ---
Received the patient back from IR. Her right groin is ecchymotic with a bandaid that is c/d/i. Her right groin is tender to the touch. I instructed the patient on her activity restrictions and expected oob time. Her daughter is at the bedside.
[2024-06-08] MEDS: CRESTOR 20 MG PO (18:08)
[2024-06-08] MEDS: ELIQUIS 2.5 MG PO (19:39)
--- NOTE | 2024-06-08 20:25 | PTCARENOTE ---
pt received at change of shift, pt seen and assessed in room. Pt. AOx2, self and place, not oriented to time, but pleasant. tele reading NSR in the 70s. no complaints of pain at this time. fall precautions in place, bed alarm on. This RN discussed
plan of care, pt. verbalizes understanding. call walters within reach. continuing to monitor at this time.
[2024-06-08] MEDS: ATIVAN 0.5 MG PO (21:36)
[2024-06-09] VITALS (7 sets, daily range): BP systolic 117–139; BP diastolic 56–89
[2024-06-09] MEDS: TYLENOL 650 MG PO ×2 (02:14→15:51)
[2024-06-09 02:35] LABS: Hematocrit 26.1 % (37.0-47.0); Hemoglobin 8.9 g/dL (12.0-16.0); Mean Corp Hgb Conc. 34.1 g/dL (33.0-37.0); Mean Corpuscular Hgb 30.1 pg (27.0-31.0); Mean Corpuscular Volume 88.2 fL (81.0-99.0); Mean Platelet Volume 9.7 fL (7.4-10.4); Platelet Count 180 10^3/uL (130-400); Red Blood Cell Count 2.96 10^6/uL (4.20-5.40); Red Cell Dist. Width 14.8 % (11.5-14.5); White Blood Cell Count 8.1 10^3/uL (4.8-10.8)
[2024-06-09 02:56] LABS: Albumin 3.4 g/dl (3.5-5.0); Blood Urea Nitrogen 14 mg/dl (7-17); Calcium 8.2 mg/dl (8.4-10.2); Carbon Dioxide 25 mmol/L (22-30); Chloride 106 mmol/L (98-107); Estimated Creatinine Clearance 59 ml/min; Glucose 109 mg/dl (70-99); Phosphorus 3.1 mg/dl (2.5-4.5); Potassium 3.8 mmol/L (3.5-5.1); Sodium 136 mmol/L (135-145); eGFR > 60.00
[2024-06-09 08:19] LABS: ACT-LR - POC > 397 Seconds (116-155)
[2024-06-09] MEDS: PACERONE 200 MG PO ×3 (09:33→22:59)
[2024-06-09] MEDS: LOW STRENGTH ASPIRIN 81 MG PO (09:33)
[2024-06-09] MEDS: ELIQUIS PO (09:33)
[2024-06-09] MEDS: PLAVIX 75 MG PO (09:34)
[2024-06-09] MEDS: PROTONIX 40 MG PO (09:34)
[2024-06-09] MEDS: TOPROL XL 25 MG PO (09:34)
--- NOTE | 2024-06-09 09:34 | W.PN.CARDCBS ---
Addendum entered and electronically signed by Nathan Brady DO 06/09/24 12:31:
I saw and examined the patient.
The [employer]op[employer] Trimmer [employer] Wrapper's note was reviewed and I agree with the note.
Comment:
Plan:
Reviewed cath.
Hold Eliquis.
b/l Groin u/s now with small pseudoaneurysm on right, left remains occluded, IR to eval
Cont DAPT, resume Eliquis once ok with IR and H/H stable
Cont to monitor H/H
Remains in sinus
Transition to 200 mg daily of amiodarone at time of d/c.
Eventual SNF placement at [facility] once bed available and medically stable
Discussed with daughter at bedside.
Original Note:
Today's Communication / Plan
-
Repeat u/s groins this am
H&H at 11am
continue DAPT, resume Eliquis if u/s and hbg stable
Dispo planning SNF placement when medically stable
Impression / Plan
-
PCP: Wallace Coe MD
CDY: None, new to Maurilio Wilkes MD
84 yo WF with elevated troponin with markedly abnormal ECG in the setting of atrial fibrillation with a rapid ventricular response. Angiography was performed with a possible STEMI alert with diffuse ST segment depression throughout the entire
precordial and inferior leads in the setting of atrial fibrillation with rapid ventricular response. Her ECG and symptoms normalized and her initial troponin was undetectable. Her symptoms and electrocardiographic changes resolved with better
heart rate control. She arrived to the catheterization laboratory on Levophed and left on an IV Cardizem drip with adequate blood pressure control. Her troponin subsequently became modestly elevated. I believe the clinical history, ECG, and
troponin elevation all suggest the hemodynamic significance of LAD stenosis. She is therefore brought back to the catheterization laboratory for stenting of the LAD and provisional stenting of the diagonal branch.
06/07/24 PROCEDURES:
1. Successful stenting of the mid LAD jailing the first diagonal branch with placement of a 2.75 x 26 mm [place] stent that was implanted at nominal pressures. Intravascular ultrasound was performed and the stent was postdilated distally with a 3.0
mm noncompliant balloon and proximally with a 3.75 mm noncompliant balloon
2. Intravascular ultrasound
IMPRESSION:
NSTEMI
post PCI LAD 06/07/24
New Atrial fibrillation with rapid ventricular response
Left groin PSA
Hyperlipidemia
Anxiety
Possible underlying dementia
GERD
Medical noncompliance
Prior history of DVT while hospitalized for nephrolithiasis/sepsis
Recent fall with radial fracture 05/26/24
PLAN:
NSTEMI - post cath 2am with LAD/Diag disease, brought back for PCI LAD 06/07 in afternoon
troponin peaked 3.92, trending down
ECHO EF 70-75%, mild LVH, severely dilated LA, moderate TR
Pending repeat u/s will resume Eliquis, and continue triple therapy ASA/Plavix/Eliquis 1 week then stop ASA
statin, continue low dose BB
Cardiac rehab c/s
f/u DCA 2-4 weeks
Left groin PSA - IR completed thrombin injection yesterday, Hbg dropped 10 -> 8.9 this am possibly old blood in groin
Still with swelling, tenderness and moderate ecchymosis into thigh
Did receive Eliquis dose last night. L groin with some tenderness and firm site
will repeat groin u/s b/l before resuming eliquis this am
Afib with RVR- remains in SR on tele
[id number] = 6
continue Amiodarone loading 200mg tid, stopped drip
will d/c on Amiodarone 200mg daily
Will start OAC if groin u/s stable
tolerating low dose BB this am
Acute Anemia - Hbg 8.9 pre procedure 12.5, most likely groin collection
will check heme stool, repeat Hbg this afternoon, reassess groins with u/s this am
continue DAPT but hold Eliquis until repeat u/s and H&H done
Hyperlipidemia - was supposed to be taking rosuvastatin 20mg but was not taking
LDL 170, will resume rosuvastatin will need repeat lipids/LFT's in 6-8 weeks
GERD - continue Protonix 40mg daily
Dispo- PT/OT eval recommending SNF, CM to work on bed placement possibly tomorrow
continue to monitor on tele
Progress Note - Quantitative Analyst Marketing
Subjective
Date of Service: June 09, 2024
denies cp, sob, still mild-mod tenderness in b/l groins
Objective
Labs:
06/09/24 02:22
06/09/24 02:22
Labs
Hgb 8.9 g/dL (12.0-16.0) L 06/09/24 02:22
Hct 26.1 % (37.0-47.0) L 06/09/24 02:22
Plt Count 180 10^3/uL (130-400) 06/09/24 02:22
PT 14.0 Sec (11.4-14.6) 06/08/24 12:33
INR 1.04 06/08/24 12:33
APTT Cancelled 06/08/24 09:30
Sodium 136 mmol/L (135-145) 06/09/24 02:22
Potassium 3.8 mmol/L (3.5-5.1) 06/09/24 02:22
BUN 14 mg/dl (7-17) 06/09/24 02:22
Creatinine 0.6 mg/dL (0.6-1.0) 06/09/24 02:22
Glucose 109 mg/dl (70-99) H 06/09/24 02:22
Troponins
06/07/24 06/07/24 06/07/24
02:15 05:02 09:41
Troponin I < 0.012 0.993 H* D 3.250 H* D
06/07/24 06/07/24
15:45 21:15
Troponin I 3.920 H* 3.760 H*
Vital Signs and I&O:
Vital Signs
Temp Pulse Resp BP Pulse Ox
98.8 F 74 20 138/69 98
06/09/24 07:04 06/09/24 07:06 06/09/24 07:04 06/09/24 07:06 06/09/24 07:06
Vital Signs
Temp Pulse Resp BP Pulse Ox
98.8 F 74 20 138/69 98
06/09/24 07:04 06/09/24 07:06 06/09/24 07:04 06/09/24 07:06 06/09/24 07:06
Intake & Output
06/07/24 06/08/24 06/09/24 06/10/24
06:59 06:59 06:59 06:59
Intake Total 481.8 / 481.8 150 / 150
Output Total 250 / 250 650 / 650
Balance -250 / -250 481.8 / 481.8 -500 / -500
Physical Exam
Physical Exam
NAD, AOX2
S1, S2, RRR
CTAB, non labored
SNTND Bsx4
L groin with mod ecchymosis into thigh, swollen, tender
R groin with mild ecchymosis, tender with small firm lump at access site
[2024-06-09] MEDS: FLUSH (NSS) 2 FLUSH IV (09:35)
--- NOTE | 2024-06-09 09:45 | PN.CDI ---
CDI
- -
CDI:
Physician Documentation Request
Admit Date: 06/07/24 04:14
Dear Doctor Chung,
Patient admitted with MO.
ER Physician Documentation: 'Patient persistently hypotensive despite fluid bolus. Levophed started. Patient's blood pressure did improve with Levophed.'
Selected Entries
06/07/24
02:01 06/07/24
02:15 06/07/24
02:25
Blood pressure 55/36 65/41 85/53
Please clarify which of the following is the most likely etiology of the above symptoms and treatment rendered:
Cardiogenic shock
Shock, unknown type
Hypotension - indicate type/etiology, such as idiopathic, neurogenic or orthostatic, post-procedural, postoperative, due to hemodialysis, chronic, drug induced (indicate drug), etc.
Hypotension - unknown type/etiology
Other
Use of terms such as suspected, likely, concern for, or probable (associated with a specific diagnosis that is being evaluated, monitored, or treated as if it exists) are acceptable and can be coded in the inpatient setting, when documented at the
time of discharge.
Thank you,
Verna Linton RN, BSN
CDI Specialist
Available via [place] text
Please use your independent medical judgment in providing your response.
--- NOTE | 2024-06-09 10:14 | PTCARENOTE ---
Received patient this morning resting in bed. Band aid in place left groin, area ecchymotic with some firmness. Right groin is open to air, also ecchymotic with firmness noted as well, both areas are tender to touch. Patient seen by August Wong NP, AM
rowan held and patient sent for bilateral groin ultrasounds.
[2024-06-09 11:14] LABS: Hematocrit 26.6 % (37.0-47.0)
--- NOTE | 2024-06-09 11:55 | CM ---
Reviewed chart. Mrs. Schmidt was approved for admission at [facility] and [facility] pending bed availability on discharge. Will need to call them on discharge date to see if they have an available bed. Met with Mrs. Schmidt and her
daughter to review above. Also reviewed transportation and out of pocket cost for wheelchair van. Daughter states she would feel more comfort having the wheelchair van transportation instead of the family transporting. Need to call [employer]
([phone]) for payment for the wheelchair van. Medical work-up in progress. The discharge plan is to go to SNF/Rehab. -hopefully at [facility] if bed available when medically stable.
--- NOTE | 2024-06-09 14:16 | W.PN.UPDATE ---
Scores
WANDY for NSTEMI
Age >/= 65: Yes
>/=3 CAD risk factors-HTN,High Chol,Fam hx CAD,DM,Smoker: No
Known CAD (stenosis >/=50%): No
ASA use in past 7 days: No (not regularly taking aspirin prior to admission)
Severe angina (>/= 2 episodes in 24 hrs): Yes
EKG ST Changes >/= 0.5mm: Yes
Positive cardiac marker: Yes
Score: 4
Risk at 14 days-mortality, new/recurrent MO, severe ischemia: Intermediate Risk- 20% Risk at 14 days- all cause mortality, new or recurrent MO, or severe recurrent ischemia requiring urgent revascularization
[2024-06-09] MEDS: CRESTOR 20 MG PO (17:43)
[2024-06-09] MEDS: ATIVAN 0.5 MG PO (20:22)
--- NOTE | 2024-06-09 21:02 | PTCARENOTE ---
received patient at the change of shift. AAOx3. forgetful. patient appears anxious. cannot explain to nurse how she is feeling. 'there is just a lot of family stuff going on.' spoke with patient and daughter Eva on phone. offered PRN ativan and
given. bed alarm for safety. SR on tele 60s. bp stable. b/l groin sites- ecchymotic, SNAP SHEARER. firm, no change from previous shift. educated patient to inform RN with any changes. call walters within reach. comfort measures provided.
[2024-06-10] VITALS (7 sets, daily range): BP systolic 76–147; BP diastolic 50–93
[2024-06-10 05:08] LABS: Hematocrit 24.3 % (37.0-47.0); Hemoglobin 8.3 g/dL (12.0-16.0); Mean Corp Hgb Conc. 34.2 g/dL (33.0-37.0); Mean Corpuscular Hgb 29.9 pg (27.0-31.0); Mean Corpuscular Volume 87.4 fL (81.0-99.0); Mean Platelet Volume 9.3 fL (7.4-10.4); Platelet Count 174 10^3/uL (130-400); Red Blood Cell Count 2.78 10^6/uL (4.20-5.40); Red Cell Dist. Width 14.8 % (11.5-14.5); White Blood Cell Count 7.2 10^3/uL (4.8-10.8)
[2024-06-10 05:36] LABS: Albumin 3.2 g/dl (3.5-5.0); Blood Urea Nitrogen 13 mg/dl (7-17); Calcium 8.3 mg/dl (8.4-10.2); Carbon Dioxide 26 mmol/L (22-30); Chloride 104 mmol/L (98-107); Estimated Creatinine Clearance 59 ml/min; Glucose 107 mg/dl (70-99); Phosphorus 3.4 mg/dl (2.5-4.5); Potassium 3.7 mmol/L (3.5-5.1); Sodium 136 mmol/L (135-145); eGFR > 60.00
[2024-06-10] MEDS: TYLENOL 650 MG PO ×2 (06:07→23:38)
--- NOTE | 2024-06-10 08:42 | PTCARENOTE ---
Received patient this morning sitting up in bed, daughter at the bedside in to stay with the patient today. Patient denies any chest pain or discomfort. Bilateral groins remain ecchymotic and tender to touch. Left groin is soft, right groin has area
that is firmer. Patient seen by August Wong NP, will discuss plan with physicians.
[2024-06-10] MEDS: TOPROL XL 25 MG PO (09:15)
[2024-06-10] MEDS: PLAVIX 75 MG PO (09:15)
[2024-06-10] MEDS: PROTONIX 40 MG PO (09:15)
[2024-06-10] MEDS: PACERONE 200 MG PO (09:15)
[2024-06-10] MEDS: MIRALAX 17 GRAMS PO (09:15)
[2024-06-10] MEDS: LOW STRENGTH ASPIRIN 81 MG PO (09:15)
[2024-06-10] MEDS: FLUSH (NSS) 1 FLUSH IV (09:16)
--- NOTE | 2024-06-10 09:24 | W.PN.CARDCBS ---
Addendum entered and electronically signed by BANDAR Clayton 06/10/24 16:56:
acute blood loss anemia d/t PSA into groin
Addendum entered and electronically signed by Maurilio Wilkes MD 06/10/24 11:58:
Attending addendum: Patient seen and examined. MACHINE PULLER OVER note reviewed and findings independently confirmed by me. She has been feeling well. No chest pain. Peak Trop: 3.92 ng/ml.
PE:
Gen: Sitting in chair. NAD
HEENT: Glasses worn when light on
Lungs: Clear to base
CV: RRR with II/ murmur at USB and HSB II/ LLSB
Ext: Both groins ecchymotic. Left s/p thrombin injection has larger hematoma. Soft bruit. Right ecchymotic but small hematoma and bruit
-06/09/2024: Groin U/S: Right groin: Small pseudoaneurysm 1.2x0.7x0.8 cm anterior to right common femoral artery
-06/09/2024: Groin U/S: left groin: Previously seen small pseudoaneurysm remains thrombosed post thrombin injection
-06/08/2024: Thrombin injection: U/S guided thrombin injection left groin
-06/08/2024: Groin U/S: Partially thrombosed pseudo in left MARINE ERECTOR measuring 1.5x0.8x0.6 cm.
-06/07/2024: Echo: LV: Normal size and systolic function with an estimate ejection fraction of 70-75%. No regional wall motion abnormalities. Mild concentric LVH. RV: Normal, LA: Severely dilated, RA: Normal, MV: MAC with mild MR. AV: Calcified
p/m gradient: 16/9 mHg, TV: Mod-severe TR with PAP 35-40mmHg,
-06/07/2024: PCI: Return for PCI in the setting of increased troponin likely suggestive of significant mid LAD stenosis. Access via left common femoral artery using ultrasound guidance. Stent: 2.75 x 26 mm [place] stent implanted at nominal pressures
and postdilated with 3.0 mm NC balloon distally and 3.75 mm NC balloon proximally
-06/07/2024: Cath: LM: Short and unobstructed, LAD: Mid LAD complex 60-70% smooth stenosis involving D2. There is WANDY-3 flow distally. LCx: Nondominant giving rise to 3 obtuse marginal branches, RCA: Dominant with mild ostial narrowing with no
pressure dampening. PDA and PLB both patent. EF: 80%.
RECOMMENDATIONS:
-I discussed with IR / Dr. Brower who feels the pseudoaneurysm is approachable for thrombin injection: They will attempt later today
-Keep at bed rest
-I am still worried about Hgb drop: She has had no bowel movement. Will check stool if no bowel movement by the end of the day with digital rectal exam
-Repeat h/h
-Hold Eliquis until we are sure that bleeding has stopped and H/H is stable
-Will likely discharge to rehab on Plavix / Eliquis rather than triple therapy
Original Note:
Today's Communication / Plan
-
Discuss with IR plan for R groin PSA
trend Hbg
continue DAPT, will discuss timing of resuming OAC
SNF when medically stable
Impression / Plan
-
PCP: Wallace Coe MD
CDY: None, new to Maurilio Wilkes MD
84 yo WF with elevated troponin with markedly abnormal ECG in the setting of atrial fibrillation with a rapid ventricular response. Angiography was performed with a possible STEMI alert with diffuse ST segment depression throughout the entire
precordial and inferior leads in the setting of atrial fibrillation with rapid ventricular response. Her ECG and symptoms normalized and her initial troponin was undetectable. Her symptoms and electrocardiographic changes resolved with better
heart rate control. She arrived to the catheterization laboratory on Levophed and left on an IV Cardizem drip with adequate blood pressure control. Her troponin subsequently became modestly elevated. I believe the clinical history, ECG, and
troponin elevation all suggest the hemodynamic significance of LAD stenosis. She is therefore brought back to the catheterization laboratory for stenting of the LAD and provisional stenting of the diagonal branch.
06/07/24 PROCEDURES:
1. Successful stenting of the mid LAD jailing the first diagonal branch with placement of a 2.75 x 26 mm [place] stent that was implanted at nominal pressures. Intravascular ultrasound was performed and the stent was postdilated distally with a 3.0
mm noncompliant balloon and proximally with a 3.75 mm noncompliant balloon
2. Intravascular ultrasound
IMPRESSION:
NSTEMI
post PCI LAD 06/07/24
New Atrial fibrillation with rapid ventricular response
Left groin PSA
Hyperlipidemia
Anxiety
Possible underlying dementia
GERD
Medical noncompliance
Prior history of DVT while hospitalized for nephrolithiasis/sepsis
Recent fall with radial fracture 05/26/24
PLAN:
NSTEMI - post cath 2am with LAD/Diag disease, brought back for PCI LAD 06/07 in afternoon
troponin peaked 3.92, trending down
ECHO EF 70-75%, mild LVH, severely dilated LA, moderate TR
continue DAPT ASA/Plavix, holding OAC for now
statin, continue low dose BB
Cardiac rehab c/s
f/u DCA 2-4 weeks
Groin PSA - IR completed thrombin injection 06/08, f/u u/s 06/09 L groin PSA remained thrombosed
R groin with swelling u/s with small PSA, continue to hold Eliquis
Hbg dropped 10 -> 8.3 this am
Will discuss with IR plan for R groin PSA management
Afib with RVR- remains in SR on tele
[id number] = 6
Switch amiodarone to daily today
Holding OAC with anemia and groin PSA for now
tolerating low dose BB
Acute Anemia - Hbg 8.3 pre procedure 12.5, most likely groin collection
No BM yet, miralax and will check heme stool
continue DAPT but holding Eliquis
Hyperlipidemia - was supposed to be taking rosuvastatin 20mg but was not taking
LDL 170, will resume rosuvastatin will need repeat lipids/LFT's in 6-8 weeks
GERD - continue Protonix 40mg daily
Dispo- PT/OT eval recommending SNF, CM to work on bed placement when medically stable
continue to monitor on tele
Progress Note - Agency Sales Representative
Subjective
Date of Service: June 10, 2024
denies cp, sob, mild groin tenderness
Objective
Labs:
06/10/24 04:56
06/10/24 04:56
Labs
Hgb 8.3 g/dL (12.0-16.0) L 06/10/24 04:56
Hct 24.3 % (37.0-47.0) L 06/10/24 04:56
Plt Count 174 10^3/uL (130-400) 06/10/24 04:56
PT 14.0 Sec (11.4-14.6) 06/08/24 12:33
INR 1.04 06/08/24 12:33
APTT Cancelled 06/08/24 09:30
Sodium 136 mmol/L (135-145) 06/10/24 04:56
Potassium 3.7 mmol/L (3.5-5.1) 06/10/24 04:56
BUN 13 mg/dl (7-17) 06/10/24 04:56
Creatinine 0.6 mg/dL (0.6-1.0) 06/10/24 04:56
Glucose 107 mg/dl (70-99) H 06/10/24 04:56
Troponins
06/07/24 06/07/24 06/07/24
09:41 15:45 21:15
Troponin I 3.250 H* D 3.920 H* 3.760 H*
Vital Signs and I&O:
Vital Signs
Temp Pulse Resp BP Pulse Ox
98.2 F 80 18 114/53 97
06/10/24 08:38 06/10/24 08:23 06/10/24 08:38 06/10/24 08:23 06/10/24 08:38
Vital Signs
Temp Pulse Resp BP Pulse Ox
98.2 F 80 18 114/53 97
06/10/24 08:38 06/10/24 08:23 06/10/24 08:38 06/10/24 08:23 06/10/24 08:38
Intake & Output
06/08/24 06/09/24 06/10/24 06/11/24
06:59 06:59 06:59 06:59
Intake Total 481.8 / 481.8 150 / 150 730 / 730
Output Total 650 / 650 1800 / 1800
Balance 481.8 / 481.8 -500 / -500 -1070 / -1070
Physical Exam
Physical Exam
NAD< AOX2
S1, S2, RRR
CTAB, non labored
SNTND bsx4
L fem site soft, mod diffuse ecchymosis
R fem site firm at puncture site, moderate ecchymosis, tender to palpation
--- NOTE | 2024-06-10 12:03 | PN.CDI ---
CDI
- -
CDI:
Physician Documentation Request
Admit Date: 06/07/24 04:14
Dear Cardiology,
Patient admitted for NSTEMI.
06/10 Cardiology: 'Acute Anemia - Hbg 8.3 pre procedure 12.5, most likely groin collection'
Based on the above, could you clarify, in your progress note, which of the following is the most likely type of anemia you are evaluating, monitoring and/or treating?
Acute blood loss anemia
Anemia (other, please specify)
Other
Use of terms such as suspected, likely, concern for, or probable (associated with a specific diagnosis that is being evaluated, monitored, or treated as if it exists) are acceptable and can be coded in the inpatient setting, when documented at the
time of discharge.
Thank you,
Verna Linton RN, BSN
CDI Specialist
Available via [facility] text
Please use your independent medical judgment in providing your response.
--- NOTE | 2024-06-10 13:47 | CM ---
pt not medically ready for dc today, called both [facility] and [facility]- no beds will be avail till thursday. cm to f/u thursday.
--- NOTE | 2024-06-10 14:11 | W.PN.UPDATE ---
Update Note
Progress Note Update
Ultrasound performed of the right groin, which showed that the patent portion of the pseudoaneurysm on yesterday's US had spontaneously thrombosed.
If suspicion remains high, CTA abdomen and pelvis would look for anything we may have missed on ultrasound. D/W Dr. Wilkes.
[2024-06-10 15:37] LABS: Hematocrit 26.7 % (37.0-47.0)
[2024-06-10] MEDS: CRESTOR 20 MG PO (17:38)
--- NOTE | 2024-06-10 21:40 | PTCARENOTE ---
Pt rec'd at change of shift in recliner chair with son at bedside. Sinus on telemetry. B/l groins ecchymotic. Right groin small firm area unchanged from previous shift (evaluated in IR on day shift -stable) back to bed at present with nursing
assist. Bed alarm activated
[2024-06-10 22:09] LABS: Hematocrit 26.8 % (37.0-47.0); Hemoglobin 9.2 g/dL (12.0-16.0)
[2024-06-11 04:57] VITALS: BP 146/67
[2024-06-11] MEDS: TYLENOL 650 MG PO ×2 (05:05→14:30)
[2024-06-11 06:27] LABS: Hematocrit 26.3 % (37.0-47.0); Hemoglobin 8.9 g/dL (12.0-16.0); Mean Corp Hgb Conc. 33.8 g/dL (33.0-37.0); Mean Corpuscular Hgb 29.5 pg (27.0-31.0); Mean Corpuscular Volume 87.1 fL (81.0-99.0); Mean Platelet Volume 9.7 fL (7.4-10.4); Platelet Count 214 10^3/uL (130-400); Red Blood Cell Count 3.02 10^6/uL (4.20-5.40); White Blood Cell Count 6.7 10^3/uL (4.8-10.8)
[2024-06-11 07:08] VITALS: BP 143/65
[2024-06-11] MEDS: TOPROL XL 25 MG PO (09:13)
[2024-06-11] MEDS: PACERONE 200 MG PO (09:13)
[2024-06-11] MEDS: PLAVIX 75 MG PO (09:13)
[2024-06-11] MEDS: PROTONIX 40 MG PO (09:13)
[2024-06-11] MEDS: MIRALAX 17 GRAMS PO (09:14)
[2024-06-11] MEDS: LOW STRENGTH ASPIRIN 81 MG PO (09:14)
--- NOTE | 2024-06-11 09:32 | W.PN.CARDCBS ---
Addendum entered and electronically signed by Gato Cole MD 06/11/24 11:22:
Discussed case with interventional cardiology. Plan will be to restart Eliquis 2.5 mg p.o. twice daily tonight and follow hemoglobin.
Will stop aspirin and continue Plavix alone. If hemoglobin remains stable will continue Eliquis 2.5 mg p.o. twice daily and Plavix.
Heme test stool.
Original Note:
Today's Communication / Plan
-
Hemoglobin stable at 8.9. Continue to follow. Would continue to hold Eliquis for now.
Ultrasound revealed thrombosed pseudoaneurysm yesterday.
Continue aspirin and Plavix. Would likely discharge to rehab on both aspirin and Plavix and not Eliquis.
Remains in sinus rhythm. Continue amiodarone.
Continue medical therapy for CAD status post PCI. Continue Crestor and metoprolol.
Impression / Plan
-
PCP: Wallace Coe MD
CDY: None, new to Maurilio Wilkes MD
84 yo WF with elevated troponin with markedly abnormal ECG in the setting of atrial fibrillation with a rapid ventricular response. Angiography was performed with a possible STEMI alert with diffuse ST segment depression throughout the entire
precordial and inferior leads in the setting of atrial fibrillation with rapid ventricular response. Her ECG and symptoms normalized and her initial troponin was undetectable. Her symptoms and electrocardiographic changes resolved with better
heart rate control. She arrived to the catheterization laboratory on Levophed and left on an IV Cardizem drip with adequate blood pressure control. Her troponin subsequently became modestly elevated. I believe the clinical history, ECG, and
troponin elevation all suggest the hemodynamic significance of LAD stenosis. She is therefore brought back to the catheterization laboratory for stenting of the LAD and provisional stenting of the diagonal branch.
06/07/24 PROCEDURES:
1. Successful stenting of the mid LAD jailing the first diagonal branch with placement of a 2.75 x 26 mm [place] stent that was implanted at nominal pressures. Intravascular ultrasound was performed and the stent was postdilated distally with a 3.0
mm noncompliant balloon and proximally with a 3.75 mm noncompliant balloon
2. Intravascular ultrasound
IMPRESSION:
NSTEMI
post PCI LAD 06/07/24
New Atrial fibrillation with rapid ventricular response
Left groin PSA
Hyperlipidemia
Anxiety
Possible underlying dementia
GERD
Medical noncompliance
Prior history of DVT while hospitalized for nephrolithiasis/sepsis
Recent fall with radial fracture 05/26/24
PLAN:
NSTEMI - post cath 2am with LAD/Diag disease, brought back for PCI LAD 06/07 in afternoon
troponin peaked 3.92, trending down
ECHO EF 70-75%, mild LVH, severely dilated LA, moderate TR
continue DAPT ASA/Plavix, holding Eliquis for now
statin, continue low dose BB
Cardiac rehab c/s
f/u DCA 2-4 weeks
Groin PSA - IR completed thrombin injection 06/08, f/u u/s 06/09 L groin PSA remained thrombosed
R Groin US 06/10 with thrombosed PSA.
Hg 8.9 and stable.
Afib with RVR- remains in SR on tele
[id number] = 6
Switch amiodarone to daily today
Holding OAC with anemia and groin PSA for now
tolerating low dose BB
Acute Anemia - Hbg 8-9 and stable. pre procedure 12.5, most likely groin collection
No BM yet, miralax and will check heme stool
continue DAPT but holding Eliquis
Hyperlipidemia - was supposed to be taking rosuvastatin 20mg but was not taking
LDL 170, will resume rosuvastatin will need repeat lipids/LFT's in 6-8 weeks
GERD - continue Protonix 40mg daily
Dispo- PT/OT eval recommending SNF, CM to work on bed placement when medically stable
continue to monitor on tele
Progress Note - Rail Transportation Tabeler
Subjective
Date of Service: June 11, 2024
GEN: No distress, awake, alert
HEENT: supple, anicteric, mmm
LUNGS: CTA, no wheezes/rales
CV: Reg, S1/S2, 1/6 syst LSB, no gallop
ABD: soft, BS+, NT/ND
EXT: + L groin ecchymosis
NEURO: Gross non-focal
SKIN: No rash
Objective
Labs:
06/11/24 05:12
06/10/24 04:56
Labs
Hgb 8.9 g/dL (12.0-16.0) L 06/11/24 05:12
Hct 26.3 % (37.0-47.0) L 06/11/24 05:12
Plt Count 214 10^3/uL (130-400) D 06/11/24 05:12
PT 14.0 Sec (11.4-14.6) 06/08/24 12:33
INR 1.04 06/08/24 12:33
APTT Cancelled 06/08/24 09:30
Sodium 136 mmol/L (135-145) 06/10/24 04:56
Potassium 3.7 mmol/L (3.5-5.1) 06/10/24 04:56
BUN 13 mg/dl (7-17) 06/10/24 04:56
Creatinine 0.6 mg/dL (0.6-1.0) 06/10/24 04:56
Glucose 107 mg/dl (70-99) H 06/10/24 04:56
Vital Signs and I&O:
Vital Signs
Temp Pulse Resp BP Pulse Ox
97.8 F 73 18 146/67 99
06/11/24 07:07 06/11/24 04:57 06/11/24 07:07 06/11/24 04:57 06/11/24 07:07
Vital Signs
Temp Pulse Resp BP Pulse Ox
97.8 F 73 18 146/67 99
06/11/24 07:07 06/11/24 04:57 06/11/24 07:07 06/11/24 04:57 06/11/24 07:07
Intake & Output
06/09/24 06/10/24 06/11/24 06/12/24
06:59 06:59 06:59 06:59
Intake Total 150 / 150 730 / 730 360 / 360
Output Total 650 / 650 1800 / 1800 800 / 800
Balance -500 / -500 -1070 / -1070 -440 / -440
[2024-06-11 14:26] VITALS: BP 125/58
[2024-06-11] MEDS: MILK OF MAGNESIA 30 ML PO (14:32)
--- NOTE | 2024-06-11 14:38 | PTCARENOTE ---
Pt c/o constipation. Dr Brady aware, Milk of mag ordered and dose given to Pt.
--- NOTE | 2024-06-11 15:09 | PTCARENOTE ---
Pt c/o 2 episodes of very brief stabbing chest pain, once after eating breakfast and again after lunch. Pt instructed to let nurse know if the pain returns.
[2024-06-11 15:55] VITALS: BP 134/64
--- NOTE | 2024-06-11 17:58 | PTCARENOTE ---
Pt continues to have very brief episodes(lasting 1-2 seconds) of sharp chest pain, Pt's son concerned, no ectopy noted on monitor. Pt denies any other symptoms besides constipation. EKG done.
[2024-06-11] MEDS: CRESTOR 20 MG PO (18:13)
[2024-06-11 18:54] VITALS: BP 158/71
[2024-06-11] MEDS: ELIQUIS 2.5 MG PO (19:49)
--- NOTE | 2024-06-11 20:40 | PTCARENOTE ---
Pt rec'd at beginning of shift sitting on side of bed with son at bedside. C/o intermittent chest pain lasting a ' second'. Sinus noted on telemetry. Pt with no bm for several days. son ordered Mom prune juice. Will continue to monitor. B/L groin
sites remain ecchymotic, no change from previous assessment.
[2024-06-11 23:05] VITALS: BP 135/63
[2024-06-12 04:03] VITALS: BP 147/66
[2024-06-12 04:19] VITALS: BMI 19.9
--- NOTE | 2024-06-12 04:32 | PTCARENOTE ---
Pt reports having slept well but concerned that she still has not had a bm. Pt did drink glass of prune juice during evening shift; asking for a dose of MOM now. Order obtained from cardiac PA for now dose. good BS with no nausea reported by pt
[2024-06-12] MEDS: MILK OF MAGNESIA 30 ML PO (04:38)
--- NOTE | 2024-06-12 07:57 | W.PN.CARDCBS ---
Today's Communication / Plan
-
NSTEMI - post cath 2am with LAD/Diag disease, brought back for PCI LAD 06/07 in afternoon
troponin peaked 3.92, trending down
ECHO EF 70-75%, mild LVH, severely dilated LA, moderate TR
Cont Eliquis and Plavix
Cont statin and low dose BB
Cardiac rehab c/s
f/u DCA 2-4 weeks
Groin PSA - IR completed thrombin injection 06/08, f/u u/s 06/09 L groin PSA remained thrombosed
R Groin US 06/10 with thrombosed PSA.
Hg 8.9 and stable 06/11 cont to monitor H/H
Afib with RVR- remains in SR on tele
[id number] = 6
Amiodarone 200 mg daily
Eliquis resumed
tolerating low dose BB
Acute Anemia - Hbg 8-9 and has been overall stable. pre procedure 12.5, most likely groin collection
No BM yet, miralax and will check heme stool
Continue Eliquis and Plavix.
Continue to monitor H/H
Hyperlipidemia - was supposed to be taking rosuvastatin 20mg but was not taking
LDL 170, rosuvastatin resumed
will need repeat lipids/LFT's in 6-8 weeks
GERD - continue Protonix 40mg daily
Dispo- PT/OT eval recommending SNF,
CM working on SNF placement
Impression / Plan
-
PCP: Wallace Coe MD
CDY: None, new to Maurilio Wilkes MD
84 yo WF with elevated troponin with markedly abnormal ECG in the setting of atrial fibrillation with a rapid ventricular response. Angiography was performed with a possible STEMI alert with diffuse ST segment depression throughout the entire
precordial and inferior leads in the setting of atrial fibrillation with rapid ventricular response. Her ECG and symptoms normalized and her initial troponin was undetectable. Her symptoms and electrocardiographic changes resolved with better
heart rate control. She arrived to the catheterization laboratory on Levophed and left on an IV Cardizem drip with adequate blood pressure control. Her troponin subsequently became modestly elevated. I believe the clinical history, ECG, and
troponin elevation all suggest the hemodynamic significance of LAD stenosis. She is therefore brought back to the catheterization laboratory for stenting of the LAD and provisional stenting of the diagonal branch.
06/07/24 PROCEDURES:
1. Successful stenting of the mid LAD jailing the first diagonal branch with placement of a 2.75 x 26 mm [place] stent that was implanted at nominal pressures. Intravascular ultrasound was performed and the stent was postdilated distally with a 3.0
mm noncompliant balloon and proximally with a 3.75 mm noncompliant balloon
2. Intravascular ultrasound
IMPRESSION:
NSTEMI
post PCI LAD 06/07/24
New Atrial fibrillation with rapid ventricular response
Left groin PSA
Hyperlipidemia
Anxiety
Possible underlying dementia
GERD
Medical noncompliance
Prior history of DVT while hospitalized for nephrolithiasis/sepsis
Recent fall with radial fracture 05/26/24
PLAN:
NSTEMI - post cath 2am with LAD/Diag disease, brought back for PCI LAD 06/07 in afternoon
troponin peaked 3.92, trending down
ECHO EF 70-75%, mild LVH, severely dilated LA, moderate TR
Cont Eliquis and Plavix
Cont statin and low dose BB
Cardiac rehab c/s
f/u DCA 2-4 weeks
Groin PSA - IR completed thrombin injection 06/08, f/u u/s 06/09 L groin PSA remained thrombosed
R Groin US 06/10 with thrombosed PSA.
Hg 8.9 and stable 06/11 cont to monitor H/H
Afib with RVR- remains in SR on tele
[id number] = 6
Amiodarone 200 mg daily
Eliquis resumed
tolerating low dose BB
Acute Anemia - Hbg 8-9 and has been overall stable. pre procedure 12.5, most likely groin collection
No BM yet, miralax and will check heme stool
Continue Eliquis and Plavix.
Continue to monitor H/H
Hyperlipidemia - was supposed to be taking rosuvastatin 20mg but was not taking
LDL 170, rosuvastatin resumed
will need repeat lipids/LFT's in 6-8 weeks
GERD - continue Protonix 40mg daily
Dispo- PT/OT eval recommending SNF,
CM working on SNF placement
Continue to monitor on tele
Discussed with nursing and son at bedside.
Progress Note - Clinical Pharmacy Technician
Subjective
Date of Service: June 12, 2024
Patient seen and examined. No chest pain or shortness of breath
Objective
Labs:
06/11/24 05:12
06/10/24 04:56
Labs
Hgb 8.9 g/dL (12.0-16.0) L 06/11/24 05:12
Hct 26.3 % (37.0-47.0) L 06/11/24 05:12
Plt Count 214 10^3/uL (130-400) D 06/11/24 05:12
PT 14.0 Sec (11.4-14.6) 06/08/24 12:33
INR 1.04 06/08/24 12:33
APTT Cancelled 06/08/24 09:30
Sodium 136 mmol/L (135-145) 06/10/24 04:56
Potassium 3.7 mmol/L (3.5-5.1) 06/10/24 04:56
BUN 13 mg/dl (7-17) 06/10/24 04:56
Creatinine 0.6 mg/dL (0.6-1.0) 06/10/24 04:56
Glucose 107 mg/dl (70-99) H 06/10/24 04:56
Vital Signs and I&O:
Vital Signs
Temp Pulse Resp BP Pulse Ox
98.0 F 65 20 147/66 97
06/12/24 04:05 06/12/24 07:00 06/12/24 04:05 06/12/24 04:03 06/12/24 04:05
Vital Signs
Temp Pulse Resp BP Pulse Ox
98.0 F 65 20 147/66 97
06/12/24 04:05 06/12/24 07:00 06/12/24 04:05 06/12/24 04:03 06/12/24 04:05
Intake & Output
06/10/24 06/11/24 06/12/24 06/13/24
06:59 06:59 06:59 06:59
Intake Total 730 / 730 360 / 360 150 / 150
Output Total 1800 / 1800 800 / 800 1150 / 1150
Balance -1070 / -1070 -440 / -440 -1000 / -1000
Physical Exam
Physical Exam
General: No acute distress, AAOX3
Neck: Negative JVD
Heart: Regular, Negative S3 positive S1/S2, Negative S4, No murmur
Lungs: CTA b/l, negative wheezes/rales/rhonchi
Abd: Positive BS, NT/ND, neg rebound/rigidity/guarding
Ext: Negative cyanosis/clubbing/edema
Neuro: nonfocal
[2024-06-12 08:39] VITALS: BP 139/75
[2024-06-12] MEDS: PLAVIX 75 MG PO (08:43)
[2024-06-12] MEDS: TOPROL XL 25 MG PO (08:43)
[2024-06-12] MEDS: PROTONIX 40 MG PO (08:43)
[2024-06-12] MEDS: PACERONE 200 MG PO (08:43)
[2024-06-12] MEDS: ELIQUIS 2.5 MG PO ×2 (08:44→19:50)
[2024-06-12] MEDS: MIRALAX 17 GRAMS PO (08:45)
--- NOTE | 2024-06-12 08:45 | PTCARENOTE ---
Rec'd Pt awake and alert, appropriate conversation at change of shift. She has denied pain, son visiting.
[2024-06-12] MEDS: TIMOPTIC 0.5% OPHTHALMIC SOLUTION 1 DROP OPHTH ×2 (10:28→18:43)
[2024-06-12 11:09] LABS: Hematocrit 29.1 % (37.0-47.0); Hemoglobin 9.6 g/dL (12.0-16.0); Mean Corpuscular Hgb 29.3 pg (27.0-31.0); Mean Corpuscular Volume 88.7 fL (81.0-99.0); Mean Platelet Volume 9.5 fL (7.4-10.4); Platelet Count 271 10^3/uL (130-400); Red Blood Cell Count 3.28 10^6/uL (4.20-5.40); Red Cell Dist. Width 15.3 % (11.5-14.5); White Blood Cell Count 6.6 10^3/uL (4.8-10.8)
[2024-06-12 12:45] VITALS: BP 114/56
--- NOTE | 2024-06-12 14:47 | PTCARENOTE ---
Rec'd Pt this AM, alert, appropriate conversation, denies pain, VSS.
--- NOTE | 2024-06-12 15:14 | CHAP ---
Ms. Schmidt was sitting up studying a menu, and had trouble expressing herself at first. She became tearful, saying that a problem had been discovered that she was not expecting. She was comforted by prayer. Emotional and spiritual support
provided, along with assurance of our on-going availability.
[2024-06-12 15:41] VITALS: BP 132/57
[2024-06-12] MEDS: CRESTOR 20 MG PO (17:42)
[2024-06-12] MEDS: XALATAN OPHTHALMIC SOLUTION 1 DROP OPHTH (18:44)
[2024-06-12 19:47] VITALS: BP 127/62
--- NOTE | 2024-06-12 21:21 | PTCARENOTE ---
Received patient at change of shift. Patient sitting in bed, awake and oriented x3. Bed alarm on. Bilateral groin sites very ecchymotic with hard hematoma-- noted to be same size from previous RN at change of shift. BP 127/62, NSR 60s, 100% on room
air. Discussed plan of care for evening. Patient verbalized understanding. Call walters within reach.
[2024-06-12 23:04] VITALS: BP 110/59
[2024-06-13] VITALS (8 sets, daily range): BP systolic 99–146; BP diastolic 43–67; PULSE 70; O2SAT 99
[2024-06-13 05:42] LABS: Hematocrit 27.8 % (37.0-47.0); Hemoglobin 9.2 g/dL (12.0-16.0); Mean Corp Hgb Conc. 33.1 g/dL (33.0-37.0); Mean Corpuscular Hgb 29.5 pg (27.0-31.0); Mean Corpuscular Volume 89.1 fL (81.0-99.0); Mean Platelet Volume 9.5 fL (7.4-10.4); Platelet Count 273 10^3/uL (130-400); Red Blood Cell Count 3.12 10^6/uL (4.20-5.40); Red Cell Dist. Width 15.5 % (11.5-14.5); White Blood Cell Count 7.2 10^3/uL (4.8-10.8)
[2024-06-13] MEDS: PLAVIX 75 MG PO (08:24)
[2024-06-13] MEDS: PROTONIX 40 MG PO (08:24)
[2024-06-13] MEDS: PACERONE 200 MG PO (08:25)
[2024-06-13] MEDS: ELIQUIS 2.5 MG PO (08:25)
[2024-06-13] MEDS: TOPROL XL 25 MG PO (08:25)
[2024-06-13] MEDS: TIMOPTIC 0.5% OPHTHALMIC SOLUTION 1 DROP OPHTH (08:25)
[2024-06-13] MEDS: MIRALAX PO (08:26)
--- NOTE | 2024-06-13 08:49 | PTCARENOTE ---
received patient in bed, walking rounds completed. bilat. groins, firm, tender to touch, ecchymotic/purple!, distal pulses palpable. patient is awake, has expressive aphasia, hearing aids were put in television receiver analyzer, patient has anxiety this am. ambulated
patient to chair, chair alarm on, patient eating breakfast. sat with patient and offered emotional support , patient calmed down. monitor shows NSR, VSS. INT in left upper arm hard, not able to flush, tender, D/C'd,. cast remains on left arm.
--- NOTE | 2024-06-13 09:00 | W.PN.CARDCBS ---
Addendum entered and electronically signed by Isa Waldron PA-C 06/16/24 14:01:
Impression:
Presented with chest discomfort
NSTEMI
s/p PCI of LAD 06/07/24New Atrial fibrillation with rapid ventricular response
b/l groin pseudoaneurysm
Acute blood loss anemia, improving
Hyperlipidemia
Anxiety
Possible underlying dementia
GERD
Medical noncompliance
Prior history of DVT while hospitalized for nephrolithiasis/sepsis
Recent fall with radial fracture 05/26/24
Cardiogenic shock
Addendum entered and electronically signed by Karl Tobar MD 06/13/24 10:40:
I saw and examined the patient.
The SENIOR ANALYST DEVELOPER or PA's note was reviewed and I agree with the note.
Comment: General: Well developed, well nourished in NAD.
Neck: Supple, no JVD, HJR, carotids +2 B/L, no bruits bilaterally.
Heart: Non displaced PMI, RRR, 1/6 basal systolic murmur, No S3, S4, no rubs.
Lungs: Clear to auscultation bilaterally, no wheeze, rhonchi, rubs bilaterally,
normal expiratory phase.
Extremities: No clubbing, cyanosis or edema bilaterally.
Neuro: Grossly nonfocal, awake, alert and oriented x3
Stable cardiology status for discharge to rehab. Follow-up has been arranged.. Discharge time greater than 30 minutes
Original Note:
Today's Communication / Plan
-
Continue Plavix, Eliquis
Remains in SR, on amio and Toprol
No chest pain
Hgb stable
Awaiting SNF placement
Impression / Plan
-
PCP: Dr. Wallace Coe
Landscape Laborer: None prior to admission, new to Dr. Chung MD
Impression:
Presented with chest discomfort
NSTEMI
s/p PCI of LAD 06/07/24
New Atrial fibrillation with rapid ventricular response
b/l groin pseudoaneurysm
Acute blood loss anemia, improving
Hyperlipidemia
Anxiety
Possible underlying dementia
GERD
Medical noncompliance
Prior history of DVT while hospitalized for nephrolithiasis/sepsis
Recent fall with radial fracture 05/26/24
06/07/24 LHC: 1. Successful stenting of the mid LAD jailing the first diagonal branch with placement of a 2.75 x 26 mm [place] stent that was implanted at nominal pressures. Intravascular ultrasound was performed and the stent was postdilated
distally with a 3.0 mm noncompliant balloon and proximally with a 3.75 mm noncompliant balloon 2. Intravascular ultrasound
Plan:
-Presented with chest discomfort. Admitted w/ NSTEMI and new afib. Underwent urgent LHC given concern for posterior UT. ECG changes and symptoms improved w/ heart rate control.
-Troponin uptrended, peaking at 3.92 and she returned to the landscape laborer later in the day 06/07 and underwent LAD PCI.
-Treated with triple therapy- aspirin, plavix, and Eliquis until 06/11 when aspirin was stopped. Continues on plavix and Eliquis.
-Post procedure noted to have b/l groin pseudoaneurysms. s/p IR thrombin injection of L groin. Follow up US showed both groins remain thrombosed. Hgb has been stable, at 9.2 this AM.
-Remains in SR on review of telemetry. HR stable, continues on amiodarone and Toprol.
-LDL 170. Continue rosuvastatin 20mg daily. Had not been taking prior to admission.
-Continue pantoprazole 40mg daily.
-PT/OT recommending SNF at discharge, awaiting placement.
-Cardiac rehab c/s
-Follow up has been arranged.
HPI: 84 yo WF with elevated troponin with markedly abnormal ECG in the setting of atrial fibrillation with a rapid ventricular response. Angiography was performed with a possible STEMI alert with diffuse ST segment depression throughout the entire
precordial and inferior leads in the setting of atrial fibrillation with rapid ventricular response. Her ECG and symptoms normalized and her initial troponin was undetectable. Her symptoms and electrocardiographic changes resolved with better
heart rate control. She arrived to the catheterization laboratory on Levophed and left on an IV Cardizem drip with adequate blood pressure control. Her troponin subsequently became modestly elevated. I believe the clinical history, ECG, and
troponin elevation all suggest the hemodynamic significance of LAD stenosis. She is therefore brought back to the catheterization laboratory for stenting of the LAD and provisional stenting of the diagonal branch.
Progress Note - Landscape Laborer
Subjective
Date of Service: June 13, 2024
No chest pain, palpitations, dizziness, or SOB.
Objective
Labs:
06/13/24 05:11
06/10/24 04:56
Labs
Hgb 9.2 g/dL (12.0-16.0) L 06/13/24 05:11
Hct 27.8 % (37.0-47.0) L 06/13/24 05:11
Plt Count 273 10^3/uL (130-400) 06/13/24 05:11
PT 14.0 Sec (11.4-14.6) 06/08/24 12:33
INR 1.04 06/08/24 12:33
APTT Cancelled 06/08/24 09:30
Sodium 136 mmol/L (135-145) 06/10/24 04:56
Potassium 3.7 mmol/L (3.5-5.1) 06/10/24 04:56
BUN 13 mg/dl (7-17) 06/10/24 04:56
Creatinine 0.6 mg/dL (0.6-1.0) 06/10/24 04:56
Glucose 107 mg/dl (70-99) H 06/10/24 04:56
Vital Signs and I&O:
Vital Signs
Temp Pulse Resp BP Pulse Ox
98.0 F 77 16 130/67 98
06/13/24 07:51 06/13/24 08:25 06/13/24 07:51 06/13/24 08:25 06/13/24 07:51
Vital Signs
Temp Pulse Resp BP Pulse Ox
98.0 F 77 16 130/67 98
06/13/24 07:51 06/13/24 08:25 06/13/24 07:51 06/13/24 08:25 06/13/24 07:51
Intake & Output
06/11/24 06/12/24 06/13/24 06/14/24
06:59 06:59 06:59 06:59
Intake Total 360 / 360 150 / 150
Output Total 800 / 800 1150 / 1150 600 / 600
Balance -440 / -440 -1000 / -1000 -600 / -600
Physical Exam
Physical Exam
General: No acute distress, AAOX3
Heart: Regular, Negative S3 positive S1/S2, Negative S4, No murmur
Lungs: CTA b/l, negative wheezes/rales/rhonchi
Ext: Negative cyanosis/clubbing/edema
Neuro: nonfocal
--- NOTE | 2024-06-13 09:56 | CM ---
Addendum entered by Viola Carlos 06/13/24 13:51:
Mrs. Schmidt is ready for transfer to [facility] today. Unit Sec. made wheelchair van arrangement for 4:00 p.m. with [facility]. Telephone call to Eva to update her with transfer date and time. also reviewed wheelchair and
out of pocket cost. She is agreeable to the wheelchair van. Updated [facility] Liaison with transfer date and time. Medical work-up in progress. The discharge plan is to go to [facility] when medically stable.
Original Note:
Reviewed chart. Telephone call to [facility] admission to check on bed availability. [facility] Admissions states they will not have a bed today. Telephone call to [facility] Liaison, Cassandra who confirms ability to accept her today.
Telephone call to daughter, Eva to review above. She is agreeable to transfer to [facility]. Medical work-up in progress. The discharge plan is to go to [facility] today if medically stable.
--- NOTE | 2024-06-13 13:44 | W.DS.TRANS ---
DC Summary - Automotive Machinist
-
Discharge Instructions:
Sleep Apnea Risk Intermediate
Discharge Diagnosis/Procedures Atrial fibrillation, NSTEMI, Angioplasty with
stent to left anterior descending artery 06/07/24
Diet Low Cholesterol
Driving Restrictions No driving for 24 hours
Bathing Restrictions OK to Shower
Other Services Cardiac Rehab
Instructions:
Stand-Alone Forms: DC Instructions- Cath/EP Lab
Changes to Home Medications: Yes
Discharge Medications:
DC Medications w/original date entered in [employer]
rosuvastatin 20 mg tablet 20 mg PO QPM High cholesterol 04/27/21
alprazolam 0.5 mg tablet 0.5 mg PO BID PRN severe anxiety #12 tabs 06/01/21
tramadol 50 mg tablet 50 mg PO Q8H PRN Pain #14 tabs 05/28/24
latanoprost 0.005 % eye drops 1 drp ophthalmic (eye) QPM Eye Condition 06/08/24
pantoprazole 40 mg tablet,delayed release 40 mg PO DAILY Gastrointestinal Issue 06/08/24
timolol 0.5 % eye drops 1 drp ophthalmic (eye) BID Eye Condition 06/08/24
amiodarone 200 mg tablet 200 mg PO DAILY #30 tabs 06/13/24
apixaban 2.5 mg tablet (Eliquis) 2.5 mg PO BID #60 tabs 06/13/24
clopidogrel 75 mg tablet 75 mg PO DAILY #30 tabs 06/13/24
metoprolol succinate 25 mg tablet,extended release 24 hr 25 mg PO DAILY #30 tabs 06/13/24
Home Medication Changes
plavix is new
metoprolol is new
amiodarone is new
Eliquis is new
Pending Results: No
--- NOTE | 2024-06-13 14:11 | PTCARENOTE ---
report called to [facility] [phone], gave report to Jose LAMBERT. W/Nora schumacher will pick up attendant patient at 1600 today, patient and family aware.
--- NOTE | 2024-06-13 15:02 | PTCARENOTE ---
Addendum entered by Mali Stern RN 06/13/24 16:33:
acute care here to take patient to [facility] via ambulance. chart given to class a regional drivers.
Original Note:
new gown and PJ bottoms on for transfer and patient has her own coat. telemetry D/C'd, INT D/C'd, personal belongings packed and will be sent with daughter. Acute Care order picker/assembler is 1600.
== END 2024-06-13 16:48 | DRG 321 ==
LOC: IVU 04:14
PROVIDERS: Nuclear Medicine Nuclear Cardiology; Nurse Practitioner Adult Health; Radiology Vascular & Interventional Radiology; ADMITTING PHYSICIAN Internal Medicine Interventional Cardiology; EMERGENCY PHYSICIAN Emergency Medicine
PROC: B2111ZZ Fluoroscopy of Multiple Coronary Arteries using Low Osmolar Contrast (ICD-10-PCS; 2024-06-07)
PROC: B240ZZ3 Ultrasonography of Single Coronary Artery, Intravascular (ICD-10-PCS; 2024-06-07)
PROC: B2151ZZ Fluoroscopy of Left Heart using Low Osmolar Contrast (ICD-10-PCS; 2024-06-07)
PROC: 4A023N7 Measurement of Cardiac Sampling and Pressure, Left Heart, Percutaneous Approach (ICD-10-PCS; 2024-06-07)
PROC: 027034Z Dilation of Coronary Artery, One Artery with Drug-eluting Intraluminal Device, Percutaneous Approach (ICD-10-PCS; 2024-06-07)
PROC: 3E05317 Introduction of Other Thrombolytic into Peripheral Artery, Percutaneous Approach (ICD-10-PCS; 2024-06-08)
DX: I21.4 Non-ST elevation (NSTEMI) myocardial infarction (principal); R57.0 Cardiogenic shock; S52.502A Unspecified fracture of the lower end of left radius, initial encounter for closed fracture; D62 Acute posthemorrhagic anemia; I72.4 Aneurysm of artery of lower extremity; E78.00 Pure hypercholesterolemia, unspecified; H35.30 Unspecified macular degeneration; I10 Essential (primary) hypertension; F41.9 Anxiety disorder, unspecified; K21.9 Gastro-esophageal reflux disease without esophagitis; R29.6 Repeated falls; I95.9 Hypotension, unspecified; F32.A Depression, unspecified; I48.91 Unspecified atrial fibrillation; W01.0XXA Fall on same level from slipping, tripping and stumbling without subsequent striking against object, initial encounter; Y93.01 Activity, walking, marching and hiking; Y92.531 Health care provider office as the place of occurrence of the external cause; Z91.81 History of falling; Z87.442 Personal history of urinary calculi; Z79.01 Long term (current) use of anticoagulants; Z86.718 Personal history of other venous thrombosis and embolism; Z91.199 Patient's noncompliance with other medical treatment and regimen due to unspecified reason
CPT/HCPCS: 36002; 76942; 80053; 80061; 80069; 83036; 83605; 84443; 84484; 85014; 85018; 85025; 85027; 85610; 85730; 86850; 86900; 86901; 92978; 93005; 93306; 93458; 93926; 97116; 97163; 97166; 97530; 99291; C1725; C1753; C1760; C1769; C1874; C1887; C1894; C9600; Q9967

== ENCOUNTER → 2024-07-28 10:30 | Outpatient (REF) | payer MEDICARE, OTHER, SELFPAY ==
[2024-07-28 17:22] LABS: % Basophils 1.1 % (0-2); % Eosinophils 1.4 % (0-6); % Immature Granulocytes 0.2 % (0-0.5); % Lymphocytes 29.2 % (20.5-51.1); % Monocytes 8.5 % (1.7-9.3); % Neutrophils 59.6 % (42.2-75.2); Absolute Basophils 0.1 10^3/uL (0-0.2); Absolute Eosinophils 0.1 10^3/uL (0-0.7); Absolute Lymphocytes 1.6 10^3/uL (1.2-3.4); Absolute Monocytes 0.5 10^3/uL (0.1-0.6); Absolute Neutrophils 3.3 10^3/uL (1.4-6.5); Hemoglobin 12.8 g/dL (12.0-16.0); Mean Corpuscular Hgb 29.4 pg (27.0-31.0); Mean Corpuscular Volume 91.7 fL (81.0-99.0); Mean Platelet Volume 9.9 fL (7.4-10.4); Nucleated Red Blood Cells % 0 %; Platelet Count 212 10^3/uL (130-400); Red Blood Cell Count 4.36 10^6/uL (4.20-5.40); Red Cell Dist. Width 15.7 % (11.5-14.5); White Blood Cell Count 5.5 10^3/uL (4.8-10.8)
[2024-07-28 17:29] LABS: ALT (SGPT) 15 U/L (0-35); AST (SGOT) 19 U/L (14-36); Albumin 4.5 g/dl (3.5-5.0); Alkaline Phosphatase 65 U/L (38-126); Blood Urea Nitrogen 15 mg/dl (7-17); Calcium 9.7 mg/dl (8.4-10.2); Carbon Dioxide 29 mmol/L (22-30); Chloride 99 mmol/L (98-107); Glucose 104 mg/dl (70-99); HDL Cholesterol 94 mg/dl; LDL Cholesterol, Calculated 98 mg/dl; Potassium 4.1 mmol/L (3.5-5.1); Sodium 137 mmol/L (135-145); Total Bilirubin 0.8 mg/dl (0.2-1.3); Total Cholesterol 208 mg/dl (50-199); Total Protein 6.9 g/dl (6.3-8.2); Triglyceride 80 mg/dl (10-149); Very Low Density Lipoprotein 16 mg/dl (0-30); eGFR > 60.00
[2024-07-28 17:59] LABS: TSH 2.12 uIU/ml (0.47-4.68)
== END ==
LOC: CLAB 10:30
PROVIDERS: ATTENDING PHYSICIAN Internal Medicine
DX: I48.91 Unspecified atrial fibrillation (principal); I21.4 Non-ST elevation (NSTEMI) myocardial infarction
CPT/HCPCS: 36415; 80053; 80061; 84443; 85025

== ENCOUNTER 2024-09-07 15:25 | Outpatient (RCR) | payer MEDICARE, OTHER, SELFPAY | END 2024-09-07 23:59 | disposition home or self-care (01) | LOC: CRHB 15:25 | PROVIDERS: ATTENDING PHYSICIAN Internal Medicine Interventional Cardiology | DX: I21.4 Non-ST elevation (NSTEMI) myocardial infarction (principal); Z95.5 Presence of coronary angioplasty implant and graft | CPT/HCPCS: 93798 ==

== ENCOUNTER 2024-11-07 15:12 | Inpatient (IN) | payer MEDICARE, OTHER, SELFPAY ==
[2024-11-07] VITALS (15 sets, daily range): BP systolic 94–134; BP diastolic 45–61; BMI 22.6; BMI 23.7
[2024-11-07 11:18] LABS: Hematocrit 39.5 % (37.0-47.0); Hemoglobin 13.1 g/dL (12.0-16.0); Mean Corp Hgb Conc. 33.2 g/dL (33.0-37.0); Mean Corpuscular Volume 86.8 fL (81.0-99.0); Nucleated Red Blood Cells % 0 %; Platelet Count 181 10^3/uL (130-400); Red Cell Dist. Width 17.3 % (11.5-14.5)
--- NOTE | 2024-11-07 11:19 | ED.GENMED ---
History of Present Illness
General
Chief Complaint: Fever
Source: patient
Exam Limitations: none
Time Seen by Provider: 11/07/24 11:13
History of Present Illness
History of Present Illness:
See MDM
Past History
Past History
ED Past Medical History: HTN, Hypercholesterolemia and Other (Macular degeneration)
ED Past Surgical History: Appendectomy, Gynecological, Orthopedic and Tonsilectomy
Social History
Tobacco: Non-smoker
Alcohol: Occasional
Drug: None
Personal:
Living: alone
Employment: Not employed
Family History
Family History: Other
Phy Exam
Physical Exam
Physical Exam:
See MDM
Sepsis
Sepsis Screening
Sepsis Assessment: Sepsis Ruled Out
Sepsis Screen
Sepsis Screen: Sepsis Ruled Out
Date: 11/07/24
Time: 12:52
Course
Orders/Labs/Results
Orders:
Orders
11/07/24 11:04
Electrocardiogram (*1) Urgent
Reason for Study: Chest Pain
Cardiac Monitoring- Treatment ONCE
EKG- Treatment ONCE
11/07/24 11:05
Complete Blood Count/With Diff Urgent
Comprehensive Metabolic Panel Urgent
Lactic Acid Urgent
11/07/24 11:06
Blood Culture Urgent
CECELIA Source: Blood/Venous
Specimen Description:
Ondansetron Injectable [Zofran] 4 mg .ROUTE .STK-MED ONE
11/07/24 11:18
0.9% Sodium Chloride 1000 ml [Nss] 1,000 ml IV BOLUS
Acetaminophen [Tylenol] 1,000 mg PO NOW STA
Cefepime HCl [Maxipime] 1,000 mg IV NOW STA
11/07/24 11:19
COVID-19 Antigen Urgent
Source: Nasal Swab
Urinalysis Reflex To Culture Urgent
Date Specimen was Collected: 11/07/24
Time Specimen was Collected: 11:11
Urine Microscopic Reflex Cult Urgent
Influenza A+B Rapid Molecular Urgent
CECELIA Source: Nasal Swab
Specimen Description:
Date Specimen was Collected: 11/07/24
Time Specimen was Collected: 11:11
Urine Culture Urgent
CECELIA Source: U
Specimen Description:
Date Specimen was Collected: 11/07/24
Time Specimen was Collected: 11:11
11/07/24 11:21
Blood Culture Urgent
CECELIA Source: Blood/Venous
Specimen Description:
Abnormal Lab Results
11/07/24 11/07/24
11:05 11:19
WBC 4.7 L 10^3/uL
(4.8-10.8)
RDW 17.3 H %
(11.5-14.5)
Abs Immat Gran (auto) 0.1 H 10^3/uL
(0-0.05)
Absolute Lymphs (auto) 0.7 L 10^3/uL
(1.2-3.4)
Absolute Monos (auto) 0.0 L 10^3/uL
(0.1-0.6)
Immature Gran % 1.1 H %
(0-0.5)
Neutrophils % 82.9 H %
(42.2-75.2)
Lymphocytes % 14.6 L %
(20.5-51.1)
Monocytes % 0.4 L %
(1.7-9.3)
Ur Occult Blood Reflex 4+ A
(Negative)
Leukocyte Esterase Rfl 2+ A
(Negative)
Urine RBC >100 A /HPF
(0-2)
Urine WBC (Reflex) 11-15 A /HPF
(0-5)
Urine Bacteria (Reflex) Many A
(Negative)
Urine Albumin (Reflex) 3+ A
(Neg - Trace)
11/07/24 11:05
11/07/24 11:05
Vital Signs
Initial and Last Documented VS:
Initial Vital Signs
Temp Pulse Resp Pulse Ox
103.1 F H 67 20 95
11/07/24 10:59 11/07/24 10:59 11/07/24 10:59 11/07/24 10:59
Last Documented Vital Signs
Temp Pulse Resp BP Pulse Ox
100.1 F 59 19 102/53 95
11/07/24 12:27 11/07/24 13:00 11/07/24 13:00 11/07/24 13:00 11/07/24 13:00
MDM/Problems Addressed
Differential Diagnosis Includes:
Note:
CHIEF COMPLAINT(S)
Fever and hematuria.
HISTORY OF PRESENT ILLNESS
The patient is an 84-year-old female presenting with the sudden onset of fever and blood in the urine this morning. She reports associated chills. The patient denies any cough, shortness of breath, abdominal pain, or significant back pain, although
she notes a little pain in the right back area. She has a history of a possible kidney-related issue, as mentioned, but details are unclear. The patient recalls having recent family company and denies acute kidney stone events. Fever and urinary
symptoms raise suspicion for a kidney infection or pyelonephritis, differentiating it from a simple urinary tract infection.
ADDITIONAL HISTORY OBTAINED FROM SOURCES OTHER THAN THE PATIENT
According to the patients report, family members were present, and she wishes for her son�s assistance in recalling certain past medical details.
EXTERNAL RECORDS REVIEWED
Based on review of the patient�s prior records, further details on past urinary or kidney issues are being sought.
PHYSICAL EXAM
General: Well appearing and non-toxic
HEENT: protecting airway. Dry mucous membranes
Neck: appears supple
CV: No evidence of cyanosis
Resp: No accessory muscle use. Lungs clear
Abd: Non-distended and nontender
Extremities: No deformities
Neuro: alert
Psych: Normal affect
Skin: warm
- Nursing notes reviewed and vital signs reviewed.
PLAN
Treat with antibiotics for possible kidney infection and observe her overnight for further evaluation and management. Pain management with acetaminophen is planned.
DIFFERENTIAL DIAGNOSIS
The Differential Diagnosis includes, in no particular order and is not limited to:
- Pyelonephritis
- Urinary tract infection
- Nephrolithiasis
- Cystitis
- Urosepsis
- Interstitial nephritis
- Renal cancer
- Bladder cancer
- Glomerulonephritis
- Hemorrhagic cystitis
CARE-UPDATE
11/07/24 - 11:18
Reviewed prior records noting a history of pseudomonas-based UTI in 2021. Will initiate treatment with cefepime based on previous urine culture results.
CARE-UPDATE
11/07/24 - 13:48
Patient is feeling better post-IV fluids. Fever has defervesced. Abdomen remains soft and non-tender.
SUMMARY OF ENCOUNTER
The patient, an 84-year-old female, presented with sudden onset of fever and blood in the urine, raising concern for pyelonephritis. She reported chills but no significant cough, shortness of breath, or abdominal pain. A history of possible
kidney-related issues was noted. Given the symptoms, an admission for intravenous antibiotics was planned.
DISPOSITION
The patient will be admitted for IV antibiotics due to the concern for pyelonephritis.
INDEPENDENT REVIEW OF LABS AND INTERPRETATION OF TESTS
My independent review of lactic acid is within normal limits.
MEDICATION RECONCILIATION
Antibiotics were planned for administration via IV to treat the suspected pyelonephritis.
MEDICAL DECISION MAKING
1. Number & Complexity of Problems: Chronic conditions affecting care include a history of possible kidney-related issues. Differential diagnoses considered include pyelonephritis and urinary tract infection.
2. Data Reviewed:
- Category 1: Lab tests reviewed included lactic acid, which was within normal limits.
- Category 2: External notes regarding past urinary or kidney issues were reviewed.
- Category 3: Case was discussed with hospitalists for further inpatient management.
3. Risk: Consideration of admission was made due to the complexity and risk of pyelonephritis, thus warranting inpatient treatment with IV antibiotics.
*Pulse Oximetry
SaO2: 95
Oxygen Mode of Delivery: Room air
Patient hypoxic: no
*Critical Care Note
Total Time (30-74mins, 75-104mins- exclusive of procedures): Not Applicable
ED Attending Note
-
Portions of this chart may have been created with voice recognition software.� Occasional wrong word or��sound alike� substitutions may have occurred due to the inherent limitations of voice recognition software.
Discharge Plan
Departure
Patient Disposition: Admit
Date of Disposition: 11/07/24
Time of Disposition: 13:50
Admit to: Med/Surg
Presentation/result/management discussed w/ accepting MD/DO: Hospitalist
Discharge Problem:
Acute pyelonephritis
Prescriptions:
No Action
rosuvastatin 20 MG tablet
20 mg PO QPM
alprazolam 0.5 MG tablet
0.5 mg PO BID PRN (Reason: severe anxiety) Qty: 12 0RF
tramadol 50 mg tablet
50 mg PO Q8H PRN (Reason: Pain) Qty: 14 0RF
latanoprost 0.005 % Drops
1 drp OPHTHALMIC (EYE) QPM
Rx Instructions:
L eye
timolol 0.5 % Drops
1 drp OPHTHALMIC (EYE) BID
Rx Instructions:
L eye
pantoprazole 40 MG tablet,delayed release (DR/EC)
40 mg PO DAILY
Eliquis 2.5 mg Tablet
2.5 mg PO BID Qty: 60 11RF
amiodarone 200 mg Tablet
200 mg PO DAILY Qty: 30 11RF
clopidogrel 75 mg Tablet
75 mg PO DAILY Qty: 30 11RF
metoprolol succinate 25 mg Tablet Extended Release 24 Hr
25 mg PO DAILY Qty: 30 11RF
Referrals:
Wallace Melton DO [Family Provider, Internal Medicine]
Interventions
Interventions:
*Risk Screen - Suicide Last Done: 11/07/24 11:26
*General Assessment Last Done: 11/07/24 11:26
*Neglect/Abuse Screening Last Done: 11/07/24 11:26
*ED- Fall Risk Assessment Last Done: 11/07/24 11:26
*ED COVID-19 Vaccine History Last Done: 11/07/24 11:26
ED-Female Genitourinary Assessment Last Done: 11/07/24 11:30
ED- Neurological Assessment Last Done: 11/07/24 11:30
ED-Skin Assessment Last Done: 11/07/24 11:30
Discharge Date and Time
Print Language: LUXEMBOURGISH
[2024-11-07] MEDS: TYLENOL 1000 MG PO (11:20)
[2024-11-07 11:39] LABS: Urine Character Cloudy (Clear)
[2024-11-07 11:54] LABS: COVID-19 Antigen Negative (Negative)
[2024-11-07 12:05] LABS: Urine Squamous Cell 0-2 /LPF (Few)
[2024-11-07 12:06] LABS: Urine Red Blood Cell >100 /HPF (0-2)
[2024-11-07] MEDS: MAXIPIME 1000 MG IV (12:19)
[2024-11-07] MEDS: NSS 1000 IV (12:20)
--- NOTE | 2024-11-07 12:32 | EDRN ---
Meryl BELLO in room w/ pt at this time.
--- NOTE | 2024-11-07 12:42 | EDRN ---
After checking w/ Dr. Shen and given okay for pt to drink water, cup of water brought in for pt.
[2024-11-07 13:02] LABS: ALT (SGPT) 24 U/L (0-35); AST (SGOT) 27 U/L (14-36); Albumin 4.2 g/dl (3.5-5.0); Alkaline Phosphatase 64 U/L (38-126); Blood Urea Nitrogen 17 mg/dl (7-17); Calcium 9.0 mg/dl (8.4-10.2); Carbon Dioxide 25 mmol/L (22-30); Chloride 105 mmol/L (98-107); Estimated Creatinine Clearance 38 ml/min; Glucose 98 mg/dl (70-99); Potassium 3.5 mmol/L (3.5-5.1); Sodium 139 mmol/L (135-145); Total Protein 6.9 g/dl (6.3-8.2); eGFR > 60.00
--- NOTE | 2024-11-07 13:07 | EDRN ---
Pt in BR getting a urine spec at this time. Kelly BELLO just said to this RN that pt stated to her that this inability to word find and answer questions can be normal for him as he has had prior CVA.
--- NOTE | 2024-11-07 13:25 | EDRN ---
Dr. Shen in to speak w/ pt and family at this time. Pt is to be admitted.
--- NOTE | 2024-11-07 14:08 | HPS.HSE ---
Family Physician
-
Family Physician: Wallace Melton
Chief Complaint
-
fever and hematuria
History of Present Illness
Patient is a 84-year-old female with past medical history significant for atrial fibrillation, hyperlipidemia, GERD, Hx NSTEMI and Hx DVT who presented to [facility] ED for evaluation of fever and acute onset of hematuria. Patient is poor historian, call
to daughter/POA Eva, who provided insight on HPI. Patient this morning subjectively had fever, had rigors and was requesting heat be turned on, with increased confusion from baseline. Daughter reports that patient had some nausea and vomiting
prior to arrival today as well. She is unaware of any other symptoms.
Medical History
Past Medical History
Past Medical History: Reports Other
Additional Past Medical History:
atrial fibrillation
hyperlipidemia
GERD
Hx NSTEMI
Hx DVT
Past Surgical History: Reports Other
Additional Past Surgical History:
cardiac catheterization
Social History
Unable to obtain full social history at this time due to: Dementia
Tobacco: Non-smoker
Alcohol: None
Drug: None
Living: With Family
Family History
Family History: Unable to Obtain
Allergies / Home Medications
Allergies reflects when Allergies were last updated in [facility].
Home Medications with original date entered in [employer]
Allergy/Medication List:
Allergies
Allergy/AdvReac Type Severity Reaction Status Date / Time
morphine Allergy LOW BP Verified 11/07/24 10:58
Home Medications
rosuvastatin 20 mg tablet 20 mg PO HS High cholesterol 04/27/21
latanoprost 0.005 % eye drops 1 drp LEFT EYE HS Eye Condition 06/08/24
pantoprazole 40 mg tablet,delayed release 40 mg PO DAILY Gastrointestinal Issue 06/08/24
timolol 0.5 % eye drops 1 drp LEFT EYE BID Eye Condition 06/08/24
amiodarone 200 mg tablet 200 mg PO DAILY #30 tabs 06/13/24
apixaban 2.5 mg tablet (Eliquis) 2.5 mg PO BID #60 tabs 06/13/24
clopidogrel 75 mg tablet 75 mg PO DAILY #30 tabs 06/13/24
metoprolol succinate 25 mg tablet,extended release 24 hr 25 mg PO HS 11/07/24
Review of Systems
-
Unable to obtain full review of systems at this time due to: Dementia
History Source: Family
Constitutional: Reports Fever and Chills
Abdomen/GI: Reports Nausea and Vomiting
: Reports Bleeding
Physical Exam
Vital Signs
Vital Signs
Temp Pulse Resp BP Pulse Ox
100.1 F 59 19 102/53 95
11/07/24 12:27 11/07/24 13:00 11/07/24 13:00 11/07/24 13:00 11/07/24 13:00
Physical Exam
General: Well Developed, Well Nourished, No Apparent Distress and Conversant
HEENT: NormoCephalic, Moist mucous membranes, Atraumatic, Nose Appears Normal and Ears Appear Normal
Respiratory: Clear
Cardiac: S1/S2 and Regular Rhythm
Breast: Deferred by me
GI: Soft, Non Tender, Non Distended and Normal Bowel Sounds
Rectal: Deferred by Provider
Genito-urinary: Deferred by me
Musculoskeletal: No Clubbing, No Cyanosis and No Edema
Skin: Warm and IV/Catheter Site
Neuro: Awake, Alert and Nonfocal/grossly intact
Psych: Calm and Apparent Dementia
Laboratory Results
-
11/07/24 11:05
11/07/24 11:05
Laboratory Results
Lactic Acid 1.6 mmol/L (0.7-2.0) 11/07/24 11:05
Total Bilirubin 0.8 mg/dl (0.2-1.3) 11/07/24 11:05
AST 27 U/L (14-36) 11/07/24 11:05
ALT 24 U/L (0-35) 11/07/24 11:05
Alkaline Phosphatase 64 U/L (38-126) 11/07/24 11:05
Data Reviewed
-
Medical Tests (Nuc Med, Echo, EKG etc): Report Reviewed by me (EKG: NORMAL SINUS RHYTHM POSSIBLE LEFT ATRIAL ENLARGEMENT INCOMPLETE RIGHT BUNDLE BRANCH BLOCK T WAVE ABNORMALITY, CONSIDER LATERAL ISCHEMIA)
Lab Data: Labs Reviewed by me (WBC 4.2, Neut 82.9, )
Impression/Plan
-
IMPRESSION/PLAN:
#sepsis likely 2/2 UTI/pyelonephritis
fever with hematuria this morning with episode of nausea and vomiting
WBC 4.2, Neut 82.9
hx septic shock from Escherichia coli bacteremia and urinary tract infection secondary to obstructive pyelonephritis, requiring intubation
Abd/Pel CT: pending
EKG: NORMAL SINUS RHYTHM
POSSIBLE LEFT ATRIAL ENLARGEMENT
INCOMPLETE RIGHT BUNDLE BRANCH BLOCK
T WAVE ABNORMALITY, CONSIDER LATERAL ISCHEMIA
- Admit to IMU
- IVF LR 100cc/hr
- IV cefepime 2gm q8
- supportive care
#atrial fibrillation
EKG: NORMAL SINUS RHYTHM
POSSIBLE LEFT ATRIAL ENLARGEMENT
INCOMPLETE RIGHT BUNDLE BRANCH BLOCK
T WAVE ABNORMALITY, CONSIDER LATERAL ISCHEMIA
- continue amiodarone, metoprolol and Eliquis
#GERD
- continue pantoprazole
#hyperlipidemia
- continue rosuvastatin
#Hx NSTEMI
#Hx DVT
Code status: DNR
DVT prophylaxis: Eliquis
--- NOTE | 2024-11-07 14:10 | EDRN ---
Pt asking for boxed lunch, out of bed to BR w/ assist of daughter and back to stretcher.
--- NOTE | 2024-11-07 14:24 | W.PN.UPDATE ---
Addendum entered and electronically signed by Ilir Haro MD 11/07/24 18:36:
Called POA Daughter Eva [phone]
case dw Norma ( POA daughter )
Informed her ref to urosepsis due to complicated UTI 2/2 7.7 mm calculus in the proximal right ureter with moderate obstructive uropathy
Informed Eva patient will urgently proceed to OR for stent
Holding Eliquis and NPO
case Hospitalist cordelia Mendoza
Addendum entered and electronically signed by Ilir Haro MD 11/07/24 18:02:
CT Abd/pel Without Iv Or Oral
7.7 mm calculus in the proximal right ureter with moderate obstructive uropathy.
Nonobstructing left intrarenal calculi.
Gallbladder distention with cholelithiasis and concentrated bile. No apparent wall thickening.
Constipation with large colonic fecal burden. No bowel obstruction.
2 cm stable infrarenal abdominal aortic aneurysm.
- Urology consulted
- c/w IV CFP and LR IVF
Original Note:
Update Note
Progress Note Update
This note serves as an addendum to the H&P by laser cutter BHAVNA Damon
HPI
84F lives alone, non smoker, [facility] pw hematuria , chills and T 103
HX ICU admission and intubation (2020) for septic shock secondary to Escherichia coli bacteremia and urinary tract infection secondary to obstructive pyelonephritis with xoxk-rb-adcyhcbz hydronephrosis
HX HTN, Hypercholesterolemia
Reviewed VS:
11/07/24
10:59 11/07/24
11:00 11/07/24
12:00
Temp 103.1 F H
Pulse 67
Resp Rate 20
Blood pressure 134/55 110/46 ---> 102/53
SaO2 95
Oxygen Mode of Delivery Room air
PE
General: non-toxic
HEENT: protecting airway. Dry mucous membranes
Neck: appears supple
CV: RRR S1 S2
Resp: No accessory muscle use. Lungs clear
Abd: Non-distended and nontender
NO CVA tenderness
Extremities: No deformities
Neuro: alert
Psych: confused
Skin: warm
Relevant Data
11/07/24 11/07/24
11:05 11:19
WBC 4.7 L
Immature Gran % 1.1 H
Neutrophils % 82.9 H
Creatinine 0.8
eGFR > 60.00
Lactic Acid 1.6
Urine Clarity Cloudy
Leukocyte Esterase Rfl 2+ A
Urine RBC >100 A
Urine WBC (Reflex) 11-15 A
Urine Bacteria (Reflex) Many A
SARS-CoV-[address]
Pending [address] AP without contrast
Last hospitalist admission: 04/27/2021 - 05/10/2021
1. Septic shock secondary to Escherichia coli bacteremia and urinary tract infection secondary to obstructive pyelonephritis.
2. Xivz-po-pssbngpv hydronephrosis. Intubated on mechanical ventilation.
3. Lactic acidosis.
4. Acute hypoxic respiratory failure from pulmonary congestion with atelectasis.
5. Right posterior tibial vein deep venous thrombosis with nonocclusive short saphenous vein.
6. Toxic metabolic encephalopathy from sepsis.
ASSESSMENT & PLAN
Pending Rx reconciliation
Sepsis with trending down BP concern for evoving shock pathophysiology
Suspect complicated UTI/acute PN
HX ICU admission and intubation (2020) due to septic shock 2/2 E Coli bacteremia, complicated UTI 2/2 o obstructive PN with fint-kc-ncaqevst hydronephrosis
2021 Damon ABx sen Pseudomonas POS UCX
- BCx and UCx sent
- Agree with IV CFP 2gm q8h
- IVF: switch to LR I at 100/H
- keep MAP > 65
- Tyelnol PRN
- f/u CT AP wo contrast
PMHX
Hyperlipidemia.
Gallstones.
Colon diverticula.
DVT Px: LMWH
Full code
IMU
--- NOTE | 2024-11-07 14:45 | EDRN ---
Gerry Damon RAW STOCK DYEING MACHINE TENDER in to see pt at this time.
--- NOTE | 2024-11-07 15:00 | EDRN ---
Dr. Haro in to see pt at this time.
[2024-11-07] MEDS: LR 1000 IV (15:27)
--- NOTE | 2024-11-07 15:34 | EDRN ---
Pt eating boxed lunch and received a cup of water at this time.
--- NOTE | 2024-11-07 16:55 | EDRN ---
Report called to Kourtney LAMBERT in IMU at this time.
--- NOTE | 2024-11-07 18:27 | CONS.URO ---
Consultation
-
Date/Time Consultation Performed: 11/07/24 630pm
Performing Provider: Peffer
Reason for Consultation: Sepsis, kidney stone
Medical History
History of Present Illness
84F H atrial fibrillation, hyperlipidemia, GERD, Hx NSTEMI and Hx DVT
Presented to [facility] ED for evaluation of fever and acute onset of hematuria
Patient is poor historian, call placed by ER to daughter/HANYEva, who stated Patient this morning subjectively had fever, had rigors and was requesting heat be turned on, with increased confusion from baseline.
Daughter reports that patient had some nausea and vomiting prior to arrival today as well. She is unaware of any other symptoms.
Eval in ER with fever to 103 and worsening hypotension
UA positive
CT scan showed obstructing R proximal ureteral stone
Past Medical History
Past Medical History: Other (as above)
Social History
Tobacco: Non-smoker
Alcohol: None
Family History
Family History: Reviewed & Not Pertinent
Allergies/Home Medications
Allergies
Allergy/AdvReac Type Severity Reaction Status Date / Time
morphine Allergy LOW BP Verified 11/07/24 10:58
Home Medications
�Medication �Instructions �Recorded �Confirmed �Type
rosuvastatin 20 mg tablet 20 mg PO HS High cholesterol 04/27/21 11/07/24 History
latanoprost 0.005 % eye drops 1 drp LEFT EYE HS Eye Condition 06/08/24 11/07/24 History
pantoprazole 40 mg tablet,delayed 40 mg PO DAILY Gastrointestinal 06/08/24 11/07/24 History
release Issue
timolol 0.5 % eye drops 1 drp LEFT EYE BID Eye Condition 06/08/24 11/07/24 History
amiodarone 200 mg tablet 200 mg PO DAILY #30 tabs 06/13/24 11/07/24 Rx
apixaban 2.5 mg tablet (Eliquis) 2.5 mg PO BID #60 tabs 01/27/25 06/23/25 Rx
clopidogrel 75 mg tablet 75 mg PO DAILY #30 tabs 06/13/24 11/07/24 Rx
metoprolol succinate 25 mg 25 mg PO HS 11/07/24 11/07/24 History
tablet,extended release 24 hr
Physical Exam
Vital Signs
Vital Signs
Temp Pulse Resp BP Pulse Ox
97.9 F 57 18 97/54 95
11/07/24 15:08 11/07/24 18:12 11/07/24 15:45 11/07/24 18:12 11/07/24 18:12
Lab / Testing Results
Laboratory Results
11/07/24 11:05
11/07/24 11:05
Physical Exam
General: Well Developed, Well Nourished and Chills
Respiratory: Non Labored Respirations
GI: Soft, Non Tender and Non Distended
Genito-urinary: No Costovertebral Tend
Neuro: Awake, Alert and Other (confused)
Psych: Calm
Assessment / Plan
-
84F with sepsis and obstructing R ureteral stone
- OR emergently for R ureteral stent placement
- Broad spectrum abx pending urine, blood cx
- ICU/IMU for post op monitoring
- Mejia placed intraop can be removed when no longer needed from critical care standpoint
Outpatient follow up for stone removal/ureteroscopy
Data Reviewed
-
CT Scan: Image personally visualized and interpreted
Lab Data: Labs Reviewed
--- NOTE | 2024-11-07 18:30 | PTCARENOTE ---
Received patient by stretcher from ED. VSS. . AAOx2, very forgetful, no complaints. Patient called for OR. Family unaware of CT results and plan, contacted MD who called HANY Velasquez and discussed plan/procedure. Plan/procedure explained by me at
bedside with patient and other daughter. Patient taken to OR. Report given to oncoming RN.
--- NOTE | 2024-11-07 19:41 | W.PN.UPDATE ---
Update Note
Progress Note Update
Code status reviewed with Daughter Eva/ HANY - I revised the code status - POA is indicating Limited DNR - No CPR - the rest is yes - I placed the the order
[2024-11-07] MEDS: STERILE WATER FOR INJECTION IV (19:50)
[2024-11-07] MEDS: MAXIPIME IV (19:50)
[2024-11-07] MEDS: CRESTOR 20 MG PO (20:42)
[2024-11-07] MEDS: XALATAN OPHTHALMIC SOLUTION 1 DROP LEFT EYE (20:43)
[2024-11-07] MEDS: TIMOPTIC 0.5% OPHTHALMIC SOLUTION 1 DROP LEFT EYE (20:43)
--- NOTE | 2024-11-07 20:50 | W.PN.UPDATE ---
Update Note
Progress Note Update
~20:30 equipment monitor phototypesetting showed, pt w/approx 30-45 seconds of aflutter, HR in 130-140's, returned to sinus maninder, HR 50's w/o intervention. Pt denies any symptoms, no palpitations, SOB, chest discomfort. Vital signs stable, BP 109/53. Metoprolol xl
held.
--- NOTE | 2024-11-07 21:46 | PTCARENOTE ---
received patient from PACU. patient went into A flutter for a short amount of time but converted back to NSR but can be sinus maninder at times. HYPERBARIC WELDER DIVER notified and at bedside to see patient. Patient was asymptomatic. Metoprolol held due to HR being in
50s. Patient resting in bed with call walters in reach.
[2024-11-08] VITALS (12 sets, daily range): BP systolic 97–149; BP diastolic 48–69
[2024-11-08] MEDS: LR 1000 IV ×2 (03:25→13:10)
[2024-11-08] MEDS: STERILE WATER FOR INJECTION 10 ML IV ×3 (03:35→20:10)
[2024-11-08] MEDS: MAXIPIME 1000 MG IV ×3 (03:35→20:10)
[2024-11-08 03:54] LABS: Hematocrit 34.5 % (37.0-47.0); Hemoglobin 11.5 g/dL (12.0-16.0); Mean Corp Hgb Conc. 33.3 g/dL (33.0-37.0); Mean Corpuscular Volume 86.7 fL (81.0-99.0); Platelet Count 173 10^3/uL (130-400); Red Cell Dist. Width 17.4 % (11.5-14.5)
[2024-11-08 04:15] LABS: Blood Urea Nitrogen 17 mg/dl (7-17); Calcium 8.8 mg/dl (8.4-10.2); Carbon Dioxide 27 mmol/L (22-30); Chloride 110 mmol/L (98-107); Estimated Creatinine Clearance 36 ml/min; Glucose 147 mg/dl (70-99); Potassium 3.8 mmol/L (3.5-5.1); Sodium 139 mmol/L (135-145); eGFR > 60.00
--- NOTE | 2024-11-08 07:58 | W.PN.HOSP.TC ---
Today's Communication/Plan
-
see plan
Assessment / Plan
Assessment / Plan
Gen: NAD, Awake and alert
Neck: supple.
CV: maninder, reg rhythm, +S1/S2, no m/r/g.
Resp: CTAB, no rales, wheezes, or rhonchi.
Abd: +BS, soft, NT, ND
Skin: No rashes.
Neuro: CN 2-12 intact, non-focal.
Psych: Normal mood and affect.
CT A/P: 7.7 mm calculus in the proximal right ureter with moderate obstructive uropathy. Nonobstructing left intrarenal calculi. Gallbladder distention with cholelithiasis and concentrated bile. No apparent wall thickening. Constipation with large
colonic fecal burden. No bowel obstruction. 2 cm stable infrarenal abdominal aortic aneurysm. Third spacing. Trace free pelvic fluid, nonspecific.
Sepsis due to UTI/pyelonephritis due to R ureteral calculus with moderate obstructive uropathy:
-taken to the OR emergently for R ureteral stent 11/07/24
-cont Cefepime
-follow BCxs/UCx
-cont IVFs
-c/s ID
Chronic atrial fibrillation:
-cont Amio/Eliquis
-cont BB with holding parameters
-cont tele
Other problems:
GERD: cont PPI
HLD: cont statin
CAD with h/o NSTEMI: cont Plavix/statin. Cont BB with holding parameters.
h/o DVT
Family updated at bedside.
DNR/Eliquis
Anticipated Discharge: 24 - 48 hours
Subjective/Interval History
-
Date of Service: November 08, 2024
No new complaints.
Objective Data
-
Labs:
Laboratory Results
11/08/24
03:34
WBC 13.5 H
Hgb 11.5 L
Hct 34.5 L
Plt Count 173
Sodium 139
Potassium 3.8
Chloride 110 H
Carbon Dioxide 27
BUN 17
Creatinine 0.8
Glucose 147 H
Calcium 8.8
Vital Signs:
Vital Signs
Temp Pulse Resp BP Pulse Ox
97.3 F 47 12 117/54 98
11/08/24 03:22 11/08/24 04:30 11/08/24 04:30 11/08/24 04:00 11/08/24 04:30
I&O
11/07/24 11/08/24 11/09/24
06:59 06:59 06:59
Intake Total 50 / 50
Output Total 925 / 925
Balance -875 / -875
[2024-11-08] MEDS: PROTONIX 40 MG PO (08:04)
[2024-11-08] MEDS: PLAVIX 75 MG PO (08:04)
[2024-11-08] MEDS: PACERONE 200 MG PO (08:05)
[2024-11-08] MEDS: TIMOPTIC 0.5% OPHTHALMIC SOLUTION 1 DROP LEFT EYE ×2 (08:05→20:10)
--- NOTE | 2024-11-08 08:58 | W.PN.URO.CBU ---
Today's Communication / Plan
-
Continue abx
F/U cultures
Remove silvestre when no longer needed for accurate I/O
Outpatient stone removal after discharge
Assessment / Plan
-
84F with sepsis and obstructing R ureteral stone
s/p cysto ureteral stent placement 11/07
- Broad spectrum abx pending urine, blood cx
- Repeat culture sent in OR from urine behind stone
- ICU/IMU for post op monitoring - transfer to floor when stable
- Silvestre placed intraop can be removed when no longer needed from critical care standpoint
Outpatient follow up for stone removal/ureteroscopy
Diagnosis
-
Date of Service: November 08, 2024
-
Patient Diagnosis:
Sepsis
Obstructing R ureteral stone
Post Op Day: s/p stent placement 11/07
Subjective
-
No events overnight
Stent and silvestre tolerated
Objective
-
Vital Signs
Temp Pulse Resp BP Pulse Ox
97.7 F 53 12 124/62 99
11/08/24 08:00 11/08/24 08:05 11/08/24 04:30 11/08/24 08:05 11/08/24 08:00
Intake and Output
11/07/24 11/08/24 11/09/24
06:59 06:59 06:59
Intake Total 50 / 50
Output Total 925 / 925
Balance -875 / -875
Intake:
IV fluids (Total) 50 / 50
Normosol 50 / 50
Output:
Urine, Silvestre 925 / 925
Laboratory Results
11/08/24 03:34
11/08/24 03:34
Physical Exam
-
General - well developed, well nourished, no acute distress
Chest - clear bilaterally
Abdomen - soft, non-tender
Silvestre clear urine
--- NOTE | 2024-11-08 09:35 | PTCARENOTE ---
Patient AAOx2, forgetful, anxious at times. Up in chair eating breakfast, Daughter at bedside. VSS. NSR/NSB. RA. Will pull silvestre after eating. Patient downgraded to tele. Continuing to monitor.
--- NOTE | 2024-11-08 15:55 | CM ---
Addendum entered by Malena Dobbs RN 11/08/24 16:17:
Per nurse; silvestre out and voiding.
Original Note:
Patient with Dx Sepsis due to UTI/pyelonephritis due to R ureteral calculus, obstructive uropathy s/p Cystoscopy, right ureteral stent placement. Room air. Receiving IVF, IV Abx. Per nurse; OOB chair, forgetful. PT Eval pending.
Met with patient who was confused, saying 'a doctor had come to talk with me about yarsani'. She could not remember where she lives or who she lives with.
Spoke with patient's son Maurilio, who is VB NET PROGRAMMER at the [employer];
the patient resides with her daughter Emerald in a 1 story house with 3 [address].
She has been independent in ADLs and ambulation without using an assistive device.
Maurilio denies that the patient has been falling recently, however she had several falls in May.
The patient walks 1 mile/day on her own, per son.
Maurilio says patient has issues with her memory, and he stated concern that patient doesn't remember to drink fluids. He feels there is no issue with her remembering to take her meds.
DME - [facility]
Prior [facility]
Prior [facility]
Maurilio says his sister Eva, who lives in [place], is patient's POA.
He did not want Emerald, who patient lives with, added as a contact on the chart, saying she is not the contact for medical info.
Plan follow up after seen by PT.
--- NOTE | 2024-11-08 16:12 | VNURNOTE ---
Chart reviewed. Patient recently had [facility] Jun-Aug 2024. Noted that patient is forgetful. Called son Maurilio- primary contact. Discussed [facility] nurse/therapy, visits, schedule and homebound status. Son is agreeable and understands that visits at home
will be 2-3 x per week to assess and teach medical management. Son requested that his sister Emerald be contacted to set up visits. Patient lives with Emerald. Son Maurilio stated they previously had a private director of placement who took pt food shopping. They
do not currently have her services. He declined [facility] [employer] OR [employer]. Son is aware that [facility] will contact them for start of care in 1-2 days after discharge from .
[facility] referral completed in [facility].
[2024-11-08] MEDS: CRESTOR 20 MG PO (20:06)
[2024-11-08] MEDS: ELIQUIS 2.5 MG PO (20:06)
[2024-11-08] MEDS: XALATAN OPHTHALMIC SOLUTION 1 DROP LEFT EYE (20:10)
[2024-11-08] MEDS: COLACE 100 MG PO (21:22)
--- NOTE | 2024-11-08 22:11 | CON.ID ---
Consultation
-
Date/Time Consultation Requested: october
Date/Time Consultation Performed: October
Requesting Provider: Dr Loredo
Performing Provider: Leyla Murillo MD
Reason for Consultation: Antibiotic choice
Chief Complaint / Past History
Chief Complaint
fever/ hematuria
History of Present Illness
the patient presented from home with right flank pain , fever,rigors and hematuria with concern for urosepsis, Cultures were drawn and empiric antibiotic initiated with Cefepime. CT abdomen /pelvis was done with findings of obstructive uropathy
wit 7.7 mm calculus in right ureter// Gallbladder was distended without wall thickening// there was notable fecal loading with large colonic fecal burden
Urology consultation was called with emergent placement of ureteral stent and silvestre catheter in OR
Past History
Past Medical History: Arrhythmias, CAD, GERD and Hypercholesterolemia
Allergy History:
morphine Allergy (Verified 11/07/24 10:58)
LOW BP
Medications Reviewed: Yes
Social History
Tobacco: Non-Smoker
Alcohol: None
Drug: None
Personal:
Living: With Family
Employment: Not Employed
Family History
Family History: Unable to Obtain
Review of Systems
Review of Systems
General: Fever and Chills
Gasteroenterology: Nausea and Other (constipation)
Endocrine: Weakness
Psychological: Other (dementia)
Vital Signs
Temp Pulse Resp BP Pulse Ox
98.1 F 59 15 134/60 95
11/08/24 20:23 11/08/24 20:09 11/08/24 15:50 11/08/24 16:00 11/08/24 21:47
Physical Exam
Physical Exam
Constitutional: No Acute Distress, Well Developed and Comfortable
Head: Normocephalic
Eyes: Pupils Equal, Pupils Round, No Conjunctival Hemorrhage and Sclera Anicteric
Pharynx: Benign
Oral: No Thrush and No Ulcers
Cardiovascular: Irregular Rate
Pulmonary: Clear
Gastrointestinal: Soft, Non Tender, Non Distended and Decreased Bowel Sounds
Genito-Urinary: Silvestre
Skin: Warm and Dry
Wound: None
Neurological: Awake and Alert (dementia)
Psychological: Calm
Lines: PIV
Lab / Diagnostic Study Results
11/08/24 03:34
11/08/24 03:34
Abs Immat Gran (auto) 0.1 10^3/uL (0-0.05) H 11/07/24 11:05
Absolute Neuts (auto) 3.9 10^3/uL (1.4-6.5) 11/07/24 11:05
Absolute Lymphs (auto) 0.7 10^3/uL (1.2-3.4) L 11/07/24 11:05
Absolute Monos (auto) 0.0 10^3/uL (0.1-0.6) L 11/07/24 11:05
Absolute Basos (auto) 0.0 10^3/uL (0-0.2) 11/07/24 11:05
Immature Gran % 1.1 % (0-0.5) H 11/07/24 11:05
Neutrophils % 82.9 % (42.2-75.2) H 11/07/24 11:05
Lymphocytes % 14.6 % (20.5-51.1) L 11/07/24 11:05
Monocytes % 0.4 % (1.7-9.3) L 11/07/24 11:05
Eosinophils % 0.6 % (0-6) 11/07/24 11:05
Basophils % 0.4 % (0-2) 11/07/24 11:05
Lactic Acid 1.6 mmol/L (0.7-2.0) 11/07/24 11:05
Ur Squamous Epith Cells 0-2 /LPF (Few) 11/07/24 11:19
Microbiology Results
Micro:
11/07/24 11:21 Blood Culture - Preliminary
Blood/Venous No Growth in 24 hours- Final report to follow
11/07/24 11:06 Blood Culture - Preliminary
Blood/Venous No Growth in 24 hours- Final report to follow
11/07/24 11:19 Urine Culture - Final
Urine
11/07/24 Unknown Urine Culture - Pending
Urine
11/07/24 11:19 Influenza Types A & B (CHRISTIE) - Final
Nasal Swab Negative for Influenza A & B, NAAT
Negative results must be combined with clinical observations
and patient history.
Nucleic Acid Amplification test (NAAT)performed on the
[employer] platform.
Assessment / Plan
1. Presented with fever,rigors,flank pain on the right
2. Blood urine cultures were obtained
3. Empiric antibiotic was started with Cefepime
4. CT abdomen/pelvis revealed an obstructive uropathy on the right
5. Urology consultation was called with placement of stent and indweling silvestre catheter
6. Patient is currently improved with patient currently afebrile, without pain and with cultures pending
7. targeted antibiotic will be provided based on culture results
8. Home medications and multiple issues will be managed by the primary medical team
Thank you for calling ID consultation.
ID team will follow with you.,
Care Review
Plan reviewed with: Nurse
Total Time Spent with Patient (in minutes): 55
--- NOTE | 2024-11-08 22:37 | PTCARENOTE ---
No bm since admission (11/06), +bowel sounds, no c/o abdominal pain. Bowel regimen added, colace given.
[2024-11-09] VITALS (11 sets, daily range): BP systolic 129–152; BP diastolic 58–77; PULSE 55
[2024-11-09] MEDS: LR 1000 IV ×2 (01:01→12:27)
[2024-11-09] MEDS: MAXIPIME 1000 MG IV ×3 (03:34→20:04)
[2024-11-09] MEDS: STERILE WATER FOR INJECTION 10 ML IV ×3 (03:34→20:04)
[2024-11-09] MEDS: TIMOPTIC 0.5% OPHTHALMIC SOLUTION 1 DROP LEFT EYE ×2 (09:01→20:07)
[2024-11-09] MEDS: COLACE 100 MG PO ×2 (09:09→20:04)
[2024-11-09] MEDS: ELIQUIS 2.5 MG PO ×2 (09:09→20:04)
[2024-11-09] MEDS: PACERONE 200 MG PO (09:09)
[2024-11-09] MEDS: PROTONIX 40 MG PO (09:09)
[2024-11-09] MEDS: PLAVIX 75 MG PO (09:10)
--- NOTE | 2024-11-09 09:43 | W.PN.HOSP.TC ---
Today's Communication/Plan
-
see plan
Assessment / Plan
Assessment / Plan
Gen: NAD, Awake and alert
Neck: supple.
CV: RRR, +S1/S2, no m/r/g.
Resp: CTAB anteriorly, no rales, wheezes, or rhonchi.
Abd: +BS, soft, NT, ND
Skin: No rashes.
Neuro: remains CN 2-12 intact, non-focal.
Psych: Normal mood and affect.
11/07/24 11:21 Blood/Venous Blood Culture - Preliminary
No Growth in 24 hours- Final report to follow
11/07/24 11:06 Blood/Venous Blood Culture - Preliminary
No Growth in 24 hours- Final report to follow
11/07/24 11:19 Urine Urine Culture - Final
11/07/24 11:19 Nasal Swab Influenza Types A & B (CHRISTIE) - Final
Negative for Influenza A & B, NAAT
Negative results must be combined with clinical observations
and patient history.
Nucleic Acid Amplification test (NAAT)performed on the
[employer] platform.
CT A/P: 7.7 mm calculus in the proximal right ureter with moderate obstructive uropathy. Nonobstructing left intrarenal calculi. Gallbladder distention with cholelithiasis and concentrated bile. No apparent wall thickening. Constipation with large
colonic fecal burden. No bowel obstruction. 2 cm stable infrarenal abdominal aortic aneurysm. Third spacing. Trace free pelvic fluid, nonspecific.
Sepsis due to UTI/pyelonephritis due to R ureteral calculus with moderate obstructive uropathy:
-taken to the OR emergently for R ureteral stent 11/07/24
-cont Cefepime as per ID
-follow BCxs, UCx contaminated
-cont IVFs
Chronic atrial fibrillation:
-cont Amio/Eliquis
-cont BB with holding parameters
-cont tele
Other problems:
GERD: cont PPI
HLD: cont statin
CAD with h/o NSTEMI: cont Plavix/statin. Cont BB with holding parameters.
h/o DVT
DNR/Eliquis
Anticipated Discharge: Within 24 hours
Subjective/Interval History
-
Date of Service: November 09, 2024
No new complaints.
Objective Data
-
Vital Signs:
Vital Signs
Temp Pulse Resp BP Pulse Ox
98.2 F 49 18 152/67 99
11/09/24 07:52 11/09/24 08:36 11/09/24 07:52 11/09/24 08:36 11/09/24 07:52
I&O
11/08/24 11/09/24 11/10/24
06:59 06:59 06:59
Intake Total 50 / 50
Output Total 925 / 925 300 / 300
Balance -875 / -875 -300 / -300
--- NOTE | 2024-11-09 14:23 | W.PN.URO.CBU ---
Today's Communication / Plan
-
- Continue abx course per ID
Outpatient follow up for stone removal/ureteroscopy
Office will call to schedule
Assessment / Plan
-
84F with sepsis and obstructing R ureteral stone
s/p cysto ureteral stent placement 11/07
- Continue abx course per ID
- Repeat culture sent in OR from urine behind stone - pending
- Voiding without difficulty s/p silvestre removal
Outpatient follow up for stone removal/ureteroscopy
Office will call to schedule
Diagnosis
-
Date of Service: November 09, 2024
-
Patient Diagnosis:
Sepsis
Obstructing R ureteral stone
Post Op Day: s/p stent placement 11/07
Subjective
-
feeling well
silvestre out and voiding without difficulty
Objective
-
Vital Signs
Temp Pulse Resp BP Pulse Ox
97.6 F 55 18 129/58 98
11/09/24 13:09 11/09/24 13:09 11/09/24 13:09 11/09/24 13:09 11/09/24 13:09
Intake and Output
11/08/24 11/09/24 11/10/24
06:59 06:59 06:59
Intake Total 50 / 50 240 / 240
Output Total 925 / 925 300 / 300
Balance -875 / -875 -300 / -300 240 / 240
Intake:
Oral fluids 240 / 240
IV fluids (Total) 50 / 50
Normosol 50 / 50
Output:
Urine, Silvestre 925 / 925 300 / 300
Other:
Number of approximated SMALL 1
amounts of urine
Number of approximated MODERATE 1
amounts of urine
Number of approximated LARGE 2
amounts of urine
Laboratory Results
11/08/24 03:34
11/08/24 03:34
Physical Exam
-
General - well developed, well nourished, no acute distress
Chest - clear bilaterally
Abdomen - soft, non-tender
--- NOTE | 2024-11-09 18:08 | PTCARENOTE ---
Patient out of bed to chair and bathroom with supervision assist x1 and rolling walker. IV fluids infusing via left FA IV. VS stable,afebrile. Using call walters appropriately. SR on monitor.
[2024-11-09] MEDS: CRESTOR 20 MG PO (20:04)
[2024-11-09] MEDS: XALATAN OPHTHALMIC SOLUTION 1 DROP LEFT EYE (20:07)
--- NOTE | 2024-11-09 21:02 | PTCARENOTE ---
Pt aaox2-3, forgetful, able to make needs known. Agree with previous nurse's assessment. Report called to [facility] RN Sonia. pt transferred to [facility], room 316-1 @ 2100.
--- NOTE | 2024-11-09 21:33 | W.PN.ID1 ---
Date of Service
Date of Service: November 09, 2024
Today's Communication
follow up CBC in AM
Assessment / Plan
1. Presented with fever,rigors,flank pain on the right with patient afebrile with WBC 13.5 with CBC repeat in AM
2. Blood urine cultures were obtained with NGTD
3. Empiric antibiotic was started with Cefepime
4. CT abdomen/pelvis revealed an obstructive uropathy on the right
5. Urology consultation was called with placement of stent and indweling silvestre catheter removed
6. Patient is currently improved with patient currently afebrile, without pain and with cultures pending
7. targeted antibiotic will be provided based on culture results if needed with likely DC to home to her daughter in a day or so
8. Home medications and multiple issues will be managed by the primary medical team
Chief Complaint
-: Other (nephrolithiasis with obstruction)
Subjective / Review of Systems
Review of Systems: No Fever, No Chills, No Headache, No Pharyngitis, No Stiff Neck, No Swollen Lymph Nodes, No Cough, No Sputum Production, No Chest Pain, No Palpitations, No Abdominal Pain, No Nausea, No Vomiting, No Diarrhea, No Dysuria, No Joint
Pain (improved today sitting up out of bed) and No Skin Rash
Vital Signs / Physical Exam
Vital Signs
Vital Signs
Temp Pulse Resp BP Pulse Ox
97.7 F 54 16 147/72 98
11/09/24 20:45 11/09/24 20:45 11/09/24 20:45 11/09/24 20:45 11/09/24 20:45
Physical Exam
Constitutional: No Acute Distress, Well Developed, Comfortable, Chronically Ill and Non-toxic
Head: Normocephalic
Eyes: Pupils Equal, Pupils Round, No Conjunctival Hemorrhage and Sclera Anicteric
Oropharyngeal: Benign
Cardiovascular: Regular Rate
Pulmonary: Clear and Non Labored
Gastrointestinal: Soft, Non Tender, Non Distended, Decreased Bowel Sounds, No Rebound and No Guarding
Genito-Urinary: Clear Urine
Extremities: Other (good ROM)
Skin: Warm and Dry
Wound: None
Neurological: Awake, Alert and No Motor Deficits
Psychological: Calm
Lines: PIV
Objective Data
Lab Data
Lab Results
11/08/24 03:34
11/08/24 03:34
Estimated Creat Clear 36 ml/min 11/08/24 03:34
Lactic Acid 1.6 mmol/L (0.7-2.0) 11/07/24 11:05
Total Bilirubin 0.8 mg/dl (0.2-1.3) 11/07/24 11:05
AST 27 U/L (14-36) 11/07/24 11:05
ALT 24 U/L (0-35) 11/07/24 11:05
Alkaline Phosphatase 64 U/L (38-126) 11/07/24 11:05
Most recent labs reviewed.
Microbiology: Report Reviewed (blood cultures currently with NGTD)
Micro Results:
11/07/24 11:21 Blood Culture - Preliminary
Blood/Venous No Growth in 48 hours- Final report to follow
11/07/24 11:06 Blood Culture - Preliminary
Blood/Venous No Growth in 48 hours- Final report to follow
11/07/24 Unknown Urine Culture - Preliminary
Urine
11/07/24 11:19 Urine Culture - Final
Urine
11/07/24 11:19 Influenza Types A & B (CHRISTIE) - Final
Nasal Swab Negative for Influenza A & B, NAAT
Negative results must be combined with clinical observations
and patient history.
Nucleic Acid Amplification test (NAAT)performed on the
[employer] platform.
Care Review
Plan reviewed with: Nurse and Other (daughter at bedside this afternoon)
Total Time Spent with Patient (in minutes): 35
[2024-11-10] MEDS: LR 1000 IV (00:04)
[2024-11-10 03:00] VITALS: BP 144/66
[2024-11-10] MEDS: STERILE WATER FOR INJECTION 10 ML IV ×3 (04:27→20:07)
[2024-11-10] MEDS: MAXIPIME 1000 MG IV ×3 (04:28→20:07)
--- NOTE | 2024-11-10 05:16 | PTCARENOTE ---
Patient arrived after being transferred to [facility]. Patient ambulated from stretcher to bed. Patient oriented to room, bed in lowest position with bed alarm placed and plugged in, call walters within reach. Patient's ankle edema appears to be worsening,
+2 pitting now. Lungs clear. Lactated Ringer's is at 100 ml/hr. SOCORRO Butts notified. SOCORRO Butts called this RN on the phone and changed the rate to 70 ml/hr. See MAR. Will continue to monitor.
[2024-11-10 07:23] LABS: Hematocrit 33.0 % (37.0-47.0); Hemoglobin 10.8 g/dL (12.0-16.0); Mean Corp Hgb Conc. 32.7 g/dL (33.0-37.0); Mean Corpuscular Volume 85.5 fL (81.0-99.0); Nucleated Red Blood Cells % 0 %; Platelet Count 175 10^3/uL (130-400); Red Cell Dist. Width 17.7 % (11.5-14.5)
--- NOTE | 2024-11-10 07:50 | W.PN.HOSP.TC ---
Today's Communication/Plan
-
likely d/c later today after seen by ID
Assessment / Plan
Assessment / Plan
Gen: NAD, Awake and alert
Neck: supple.
CV: maninder, reg rhythm, +S1/S2, no m/r/g.
Resp: remains CTAB anteriorly, no rales, wheezes, or rhonchi.
Skin: No rashes.
Neuro: continues to remain CN 2-12 intact, non-focal.
Psych: Normal mood and affect.
11/07/24 11:21 Blood/Venous Blood Culture - Preliminary
No Growth in 48 hours- Final report to follow
11/07/24 11:06 Blood/Venous Blood Culture - Preliminary
No Growth in 48 hours- Final report to follow
11/07/24 Unknown Urine Urine Culture - Preliminary
11/07/24 11:19 Urine Urine Culture - Final
11/07/24 11:19 Nasal Swab Influenza Types A & B (CHRISTIE) - Final
Negative for Influenza A & B, NAAT
Negative results must be combined with clinical observations
and patient history.
Nucleic Acid Amplification test (NAAT)performed on the
[employer] ID NOW platform.
CT A/P: 7.7 mm calculus in the proximal right ureter with moderate obstructive uropathy. Nonobstructing left intrarenal calculi. Gallbladder distention with cholelithiasis and concentrated bile. No apparent wall thickening. Constipation with large
colonic fecal burden. No bowel obstruction. 2 cm stable infrarenal abdominal aortic aneurysm. Third spacing. Trace free pelvic fluid, nonspecific.
Sepsis due to UTI/pyelonephritis due to R ureteral calculus with moderate obstructive uropathy:
-taken to the OR emergently for R ureteral stent 11/07/24
-cont Cefepime as per ID
-follow BCxs, UCx contaminated
-stop IVFs
-leukocytosis has resolved
Chronic atrial fibrillation:
-cont Amio/Eliquis
-BB stopped with bradycardia
Other problems:
GERD: cont PPI
HLD: cont statin
CAD with h/o NSTEMI: cont Plavix/statin. BB stopped with bradycardia.
h/o DVT: cont Eliquis
DNR/Eliquis
Anticipated Discharge: Today
Subjective/Interval History
-
Date of Service: November 10, 2024
No new complaints.
Objective Data
-
Labs:
Laboratory Results
11/10/24
06:50
WBC 6.6
Hgb 10.8 L
Hct 33.0 L
Plt Count 175
Vital Signs:
Vital Signs
Temp Pulse Resp BP Pulse Ox
97.7 F 58 18 144/66 93
11/10/24 03:00 11/10/24 03:00 11/10/24 03:00 11/10/24 03:00 11/10/24 03:00
I&O
11/09/24 11/10/24 11/11/24
06:59 06:59 06:59
Intake Total 920 / 920 240 / 240
Output Total 300 / 300
Balance -300 / -300 920 / 920 240 / 240
[2024-11-10 08:04] VITALS: BP 186/88
[2024-11-10] MEDS: COLACE 100 MG PO ×2 (08:05→20:07)
[2024-11-10] MEDS: PLAVIX 75 MG PO (08:05)
[2024-11-10] MEDS: PACERONE 200 MG PO (08:05)
[2024-11-10] MEDS: ELIQUIS 2.5 MG PO ×2 (08:05→20:07)
[2024-11-10] MEDS: TIMOPTIC 0.5% OPHTHALMIC SOLUTION 1 DROP LEFT EYE ×2 (08:06→20:07)
[2024-11-10] MEDS: PROTONIX 40 MG PO (08:06)
[2024-11-10] MEDS: LR IV (09:48)
--- NOTE | 2024-11-10 11:22 | W.PN.ID1 ---
Date of Service
Date of Service: November 10, 2024
Today's Communication
patient for D/C to home today with daughter
Assessment / Plan
1. Presented with fever,rigors,flank pain on the right with patient afebrile with WBC 6.6 with CBC repeat this AM
2. Blood urine cultures were obtained with NGTD
3. Empiric antibiotic was started with Cefepime and will be discontinued
4. CT abdomen/pelvis revealed an obstructive uropathy on the right
5. Urology consultation was called with placement of stent and in-dweling silvestre catheter removed
6. Patient is currently improved with patient currently afebrile, without pain and with cultures NGTD
7. Antibiotic will be discontinued based on negative culture results with patient to follow up with out-patient with urology
8. Home medications and multiple issues will be managed by the primary medical team
Chief Complaint
-: Leukocytosis (nephrolithiasis with obstruction) and Other (nephrolithiasis with obstruction)
Subjective / Review of Systems
Review of Systems: No Fever, No Chills, No Headache, No Pharyngitis, No Stiff Neck, No Swollen Lymph Nodes, No Cough, No Sputum Production, No Chest Pain, No Palpitations, No Abdominal Pain, No Nausea, No Vomiting, No Diarrhea and No Dysuria (no
flank pain, no suprapubic pain)
Vital Signs / Physical Exam
Vital Signs
Vital Signs
Temp Pulse Resp BP Pulse Ox
98.1 F 67 16 186/88 97
11/10/24 08:04 11/10/24 08:04 11/10/24 08:04 11/10/24 08:05 11/10/24 08:04
Physical Exam
Constitutional: No Acute Distress, Well Developed, Comfortable and Non-toxic (improved without discomfort,more alert and interactive, still with chronic dementia but more oriented this AM)
Head: Normocephalic
Eyes: Pupils Equal, Pupils Round, No Conjunctival Hemorrhage and Sclera Anicteric
Oropharyngeal: Benign
Cardiovascular: Regular Rate
Pulmonary: Clear and Non Labored
Gastrointestinal: Soft, Non Tender, Non Distended, Decreased Bowel Sounds, No Rebound and No Guarding
Extremities: Other (good ROM sitting on side of bed)
Skin: Warm and Dry
Wound: None
Neurological: Awake and Alert (more oriented this AM and less confused in setting of chronic dementia)
Psychological: Calm
Lines: PIV
Objective Data
Lab Data
Lab Results
11/10/24 06:50
11/08/24 03:34
Estimated Creat Clear 36 ml/min 11/08/24 03:34
Lactic Acid 1.6 mmol/L (0.7-2.0) 11/07/24 11:05
Total Bilirubin 0.8 mg/dl (0.2-1.3) 11/07/24 11:05
AST 27 U/L (14-36) 11/07/24 11:05
ALT 24 U/L (0-35) 11/07/24 11:05
Alkaline Phosphatase 64 U/L (38-126) 11/07/24 11:05
Most recent labs reviewed.
Microbiology: Report Reviewed (cultures with NGTD)
Micro Results:
11/07/24 11:06 Blood Culture - Preliminary
Blood/Venous No Growth in 72 hours- Final report to follow
11/07/24 Unknown Urine Culture - Preliminary
Urine Gram negative bacilli
11/07/24 11:21 Blood Culture - Preliminary
Blood/Venous No Growth in 48 hours- Final report to follow
11/07/24 11:19 Urine Culture - Final
Urine
11/07/24 11:19 Influenza Types A & B (CHRISTIE) - Final
Nasal Swab Negative for Influenza A & B, NAAT
Negative results must be combined with clinical observations
and patient history.
Nucleic Acid Amplification test (NAAT)performed on the
[employer] NOW platform.
Care Review
Plan reviewed with: Physician
Total Time Spent with Patient (in minutes): 35
[2024-11-10 11:42] VITALS: BP 136/65
--- NOTE | 2024-11-10 12:04 | CM ---
Patient seen at bedside
call placed to Eva Haines POA
discharge today
IMM reviewed with POA and verbalize understanding-Placed in chart
[facility] referral in [facility]-accepted
PLAN: Home with [facility]
POA states rebecca Corbin will transport
[2024-11-10 15:00] VITALS: BP 141/72
[2024-11-10 19:00] VITALS: BP 157/73
[2024-11-10] MEDS: XALATAN OPHTHALMIC SOLUTION 1 DROP LEFT EYE (20:12)
[2024-11-10] MEDS: CRESTOR 20 MG PO (21:37)
[2024-11-10 23:00] VITALS: BP 154/71
[2024-11-11] VITALS (7 sets, daily range): BP systolic 121–164; BP diastolic 59–78; PULSE 61; O2SAT 96
[2024-11-11] MEDS: MAXIPIME 1000 MG IV ×3 (03:30→19:12)
[2024-11-11] MEDS: STERILE WATER FOR INJECTION 10 ML IV ×3 (03:30→19:12)
[2024-11-11] MEDS: COLACE 100 MG PO ×2 (07:30→19:12)
[2024-11-11] MEDS: TIMOPTIC 0.5% OPHTHALMIC SOLUTION 1 DROP LEFT EYE ×2 (07:30→19:12)
[2024-11-11] MEDS: PLAVIX 75 MG PO (07:30)
[2024-11-11] MEDS: PROTONIX 40 MG PO (07:30)
[2024-11-11] MEDS: PACERONE 200 MG PO (07:30)
[2024-11-11] MEDS: ELIQUIS 2.5 MG PO (07:30)
--- NOTE | 2024-11-11 07:52 | W.PN.HOSP.TC ---
Addendum entered and electronically signed by Klever Loredo MD 11/11/24 09:01:
Case discussed with Dr. Chau. Stop Plavix/Eliquis as they are contributing to hematuria/acute blood loss anemia.
Original Note:
Today's Communication/Plan
-
see plan
Assessment / Plan
Assessment / Plan
Gen: NAD, Awake and alert
Neck: supple.
CV: remains maninder, reg rhythm, +S1/S2, no m/r/g.
Resp: continues to remain CTAB anteriorly, no rales, wheezes, or rhonchi.
Skin: No rashes.
Neuro: continues to remain CN 2-12 intact, non-focal.
Psych: Normal mood and affect.
11/07/24 Unknown Urine Urine Culture - Preliminary
Gram negative bacilli
11/07/24 11:21 Blood/Venous Blood Culture - Preliminary
No Growth in 72 hours- Final report to follow
11/07/24 11:06 Blood/Venous Blood Culture - Preliminary
No Growth in 72 hours- Final report to follow
11/07/24 11:19 Urine Urine Culture - Final
11/07/24 11:19 Nasal Swab Influenza Types A & B (CHRISTIE) - Final
Negative for Influenza A & B, NAAT
Negative results must be combined with clinical observations
and patient history.
Nucleic Acid Amplification test (NAAT)performed on the
[employer] ID NOW platform.
CT A/P: 7.7 mm calculus in the proximal right ureter with moderate obstructive uropathy. Nonobstructing left intrarenal calculi. Gallbladder distention with cholelithiasis and concentrated bile. No apparent wall thickening. Constipation with large
colonic fecal burden. No bowel obstruction. 2 cm stable infrarenal abdominal aortic aneurysm. Third spacing. Trace free pelvic fluid, nonspecific.
Sepsis due to UTI/pyelonephritis due to R ureteral calculus with moderate obstructive uropathy:
-taken to the OR emergently for R ureteral stent 11/07/24
-s/p IVFs
-cont Cefepime pending intraop UCx (initial UCx contaminated). As per discussion with micro, UCx speciation and susceptibilities should be back today
-follow BCxs,
-leukocytosis has resolved
-still with hematuria (acute blood loss anemia)
-discussed with urology and ID
Chronic atrial fibrillation:
-cont Amio/Eliquis
-BB stopped with bradycardia
Other problems:
GERD: cont PPI
HLD: cont statin
CAD with h/o NSTEMI: cont Plavix/statin. BB stopped with bradycardia.
h/o DVT: cont Eliquis
DNR/Eliquis
Anticipated Discharge: Within 24 hours
Subjective/Interval History
-
Date of Service: November 11, 2024
States she feels 'good' but that she continues to have hematuria.
Objective Data
-
Vital Signs:
Vital Signs
Temp Pulse Resp BP Pulse Ox
97.8 F 55 16 143/71 95
11/11/24 07:46 11/11/24 07:46 11/11/24 07:46 11/11/24 07:46 11/11/24 07:46
I&O
11/10/24 11/11/24 11/12/24
06:59 06:59 06:59
Intake Total 920 / 920 550 / 550
Balance 920 / 920 550 / 550
--- NOTE | 2024-11-11 11:01 | W.PN.ID1 ---
Date of Service
Date of Service: November 11, 2024
Today's Communication
urology follow up planned in setting of hematuria
Assessment / Plan
1. Presented with fever,rigors,flank pain on the right with patient afebrile with WBC 6.6 with CBC repeat this AM showing decreased Hgb in setting of hematuria
2. Blood,urine cultures were obtained with final culture results:
Blood NGTD
Urine Klebsiella cfu 2000 sensitive to all ( except Ampicillin)
3. Antibiotic was initiated with Cefepime with patient continued afebrile without leukocytosis WBC 6.[address] abdomen/pelvis revealed an obstructive uropathy on the right
5. Urology consultation was called with placement of stent and in-dweling silvestre catheter removed with follow up planned
6. Patient is currently improved with continued hematuria with anticoagulation now stopped
7. Home medications and multiple issues will be managed by the primary medical team
Chief Complaint
-: Leukocytosis (nephrolithiasis with obstruction) and Other (hematuria with drop in Hgb)
Subjective / Review of Systems
Review of Systems: No Fever, No Chills, No Headache, No Pharyngitis, No Stiff Neck, No Swollen Lymph Nodes, No Cough, No Sputum Production, No Chest Pain, No Palpitations, No Abdominal Pain, No Nausea, No Vomiting, No Diarrhea, No Dysuria, No Joint
Pain and Other (complains of feeling weak today but is less confused and is more alert this AM)
Vital Signs / Physical Exam
Vital Signs
Vital Signs
Temp Pulse Resp BP Pulse Ox
97.8 F 55 16 143/71 95
11/11/24 07:46 11/11/24 07:46 11/11/24 07:46 11/11/24 07:46 11/11/24 07:46
Physical Exam
Constitutional: No Acute Distress, Well Developed, Comfortable, Chronically Ill and Non-toxic
Head: Normocephalic
Eyes: Pupils Equal, Pupils Round, No Conjunctival Hemorrhage and Sclera Anicteric
Oropharyngeal: Benign
Cardiovascular: Regular Rate and Peripheral Edema (lower leg edema with more swelling right ankle than left)
Pulmonary: Clear and Non Labored
Gastrointestinal: Soft, Non Tender, Non Distended and Decreased Bowel Sounds (BM today)
Genito-Urinary: Hematuria (pinkmurine in bowl with bright red urine in specimen cup per patient)
Extremities: Edema (bilateral lower legs greatr on right)
Skin: Warm and Dry
Wound: None
Neurological: Awake, Alert and Oriented (history of chronic dementia ,less confused this AM )
Psychological: Calm
Lines: PIV
Objective Data
Lab Data
Lab Results
11/10/24 06:50
11/08/24 03:34
Estimated Creat Clear 36 ml/min 11/08/24 03:34
Lactic Acid 1.6 mmol/L (0.7-2.0) 11/07/24 11:05
Total Bilirubin 0.8 mg/dl (0.2-1.3) 11/07/24 11:05
AST 27 U/L (14-36) 11/07/24 11:05
ALT 24 U/L (0-35) 11/07/24 11:05
Alkaline Phosphatase 64 U/L (38-126) 11/07/24 11:05
Most recent labs reviewed.
Microbiology: Report Reviewed
Micro Results:
11/07/24 Unknown Urine Culture - Final
Urine Klebsiella pneumoniae
11/07/24 11:21 Blood Culture - Preliminary
Blood/Venous No Growth in 72 hours- Final report to follow
11/07/24 11:06 Blood Culture - Preliminary
Blood/Venous No Growth in 72 hours- Final report to follow
11/07/24 11:19 Urine Culture - Final
Urine
11/07/24 11:19 Influenza Types A & B (CHRISTIE) - Final
Nasal Swab Negative for Influenza A & B, NAAT
Negative results must be combined with clinical observations
and patient history.
Nucleic Acid Amplification test (NAAT)performed on the
[employer] platform.
Care Review
Plan reviewed with: Other Provider (patient with continued hematuria)
Total Time Spent with Patient (in minutes): 35
--- NOTE | 2024-11-11 13:04 | W.PN.URO.CBU ---
Today's Communication / Plan
-
Hold blood thinners
Trend hematuria
Plan for ureteroscopy Thursday
Assessment / Plan
-
84F with sepsis and obstructing R ureteral stone
s/p cysto ureteral stent placement 11/07
Hematuria
- Unfortunately blood thinners with indwelling stent and ureteral stone are causing persistent hematuria enough to drop HGB
- Hold blood thinners
- Trend HGB, transfuse as needed
- Mejia and irrigation if patient unable to void/large clots
- Discussed with patient's daughter/POA different options - remain inpatient until blood thinners washed out then complete ureteroscopy/stone removal, vs hold blood thinners outpatient until after an outpatient ureteroscopy is completed. Reviewed
risks and benefits of each. Daughter at this time prefers patient to remain inpatient until stone can be removed
- Schedule for right ureteroscopy/laser lithotripsy on Thursday and will hopefully be able to leave stent out as well
- Continue abx course per ID
- Repeat culture sent in OR from urine behind stone - Klebsiella
- Continue abx through date of procedure
Diagnosis
-
Date of Service: November 11, 2024
-
Patient Diagnosis:
Sepsis
Obstructing R ureteral stone
Gross hematuria
Post Op Day: s/p stent placement 11/07
Subjective
-
persistent gross hematuria since catheter removal with some voided clots
HGB decreasing over past 2 days
Patient without difficulty voiding
No flank pain or dysuria
Objective
-
Vital Signs
Temp Pulse Resp BP Pulse Ox
97.8 F 60 16 141/66 95
11/11/24 11:40 11/11/24 11:40 11/11/24 11:40 11/11/24 11:40 11/11/24 11:40
Intake and Output
11/10/24 11/11/24 11/12/24
06:59 06:59 06:59
Intake Total 920 / 920 550 / 550
Balance 920 / 920 550 / 550
Intake:
Oral fluids 920 / 920 550 / 550
Other:
Number of approximated MODERATE 3
amounts of urine
Number of approximated LARGE 1 2
amounts of urine
Laboratory Results
11/10/24 06:50
11/08/24 03:34
Physical Exam
-
General - well developed, well nourished, no acute distress
Chest - clear
Abdomen - soft, non-tender
[2024-11-11] MEDS: XALATAN OPHTHALMIC SOLUTION 1 DROP LEFT EYE (19:12)
[2024-11-11] MEDS: CRESTOR 20 MG PO (21:17)
[2024-11-12] VITALS (7 sets, daily range): BP systolic 129–168; BP diastolic 65–97
[2024-11-12] MEDS: STERILE WATER FOR INJECTION 10 ML IV (03:09)
[2024-11-12] MEDS: MAXIPIME 1000 MG IV (03:09)
[2024-11-12] MEDS: PROTONIX 40 MG PO (07:46)
[2024-11-12] MEDS: PACERONE 200 MG PO (07:47)
[2024-11-12] MEDS: TIMOPTIC 0.5% OPHTHALMIC SOLUTION 1 DROP LEFT EYE ×2 (07:47→19:38)
[2024-11-12] MEDS: COLACE 100 MG PO ×2 (07:47→19:35)
--- NOTE | 2024-11-12 08:24 | W.PN.HOSP.TC ---
Today's Communication/Plan
-
see plan
Assessment / Plan
Assessment / Plan
Gen: remains NAD, Awake and alert
Neck: supple.
CV: continues to remain maninder, reg rhythm, +S1/S2, no m/r/g.
Resp: CTAB anteriorly, no rales, wheezes, or rhonchi.
Skin: No rashes.
Neuro: CN 2-12 intact, non-focal.
Psych: Normal mood and affect.
11/07/24 11:21 Blood/Venous Blood Culture - Preliminary
No Growth in 4 days- Final report to follow
11/07/24 11:06 Blood/Venous Blood Culture - Preliminary
No Growth in 4 days- Final report to follow
11/07/24 Unknown Urine Urine Culture - Final
Klebsiella pneumoniae
11/07/24 11:19 Urine Urine Culture - Final
11/07/24 11:19 Nasal Swab Influenza Types A & B (CHRISTIE) - Final
Negative for Influenza A & B, NAAT
Negative results must be combined with clinical observations
and patient history.
Nucleic Acid Amplification test (NAAT)performed on the
[email or web address] platform.
CT A/P: 7.7 mm calculus in the proximal right ureter with moderate obstructive uropathy. Nonobstructing left intrarenal calculi. Gallbladder distention with cholelithiasis and concentrated bile. No apparent wall thickening. Constipation with large
colonic fecal burden. No bowel obstruction. 2 cm stable infrarenal abdominal aortic aneurysm. Third spacing. Trace free pelvic fluid, nonspecific.
Sepsis due to UTI/pyelonephritis due to R ureteral calculus with moderate obstructive uropathy:
-taken to the OR emergently for R ureteral stent 11/07/24
-s/p IVFs
-was on Cefepime, de-escalate to Ancef based on intraop UCx
-BCxs NGTD
-leukocytosis has resolved
-still with hematuria (acute blood loss anemia exacerbated by Plavix/Eliquis)
-urology/ID following
-ureteroscopy on 11/15/24
Chronic atrial fibrillation:
-cont Amio
-Eliquis on hold as above
-BB stopped with bradycardia
Other problems:
Hypokalemia: 40meq PO K
GERD: cont PPI
HLD: cont statin
CAD with h/o NSTEMI: cont statin. BB stopped with bradycardia. Plavix on hold as above.
h/o DVT: cont Eliquis
DNR/Eliquis
Anticipated Discharge: > 48 hours
Subjective/Interval History
-
Date of Service: November 12, 2024
Hematuria improving. No new complaints.
Objective Data
-
Vital Signs:
Vital Signs
Temp Pulse Resp BP Pulse Ox
98.3 F 60 16 135/65 96
11/12/24 07:23 11/12/24 07:23 11/12/24 07:23 11/12/24 07:23 11/12/24 07:23
I&O
11/11/24 11/12/24 11/13/24
06:59 06:59 06:59
Intake Total 550 / 550 180 / 180 120 / 120
Balance 550 / 550 180 / 180 120 / 120
[2024-11-12 09:36] LABS: Hematocrit 32.7 % (37.0-47.0); Hemoglobin 10.9 g/dL (12.0-16.0); Mean Corp Hgb Conc. 33.3 g/dL (33.0-37.0); Mean Corpuscular Volume 86.1 fL (81.0-99.0); Platelet Count 168 10^3/uL (130-400); Red Cell Dist. Width 17.2 % (11.5-14.5)
[2024-11-12 09:47] LABS: Blood Urea Nitrogen 12 mg/dl (7-17); Calcium 8.2 mg/dl (8.4-10.2); Carbon Dioxide 30 mmol/L (22-30); Chloride 108 mmol/L (98-107); Estimated Creatinine Clearance 41 ml/min; Glucose 101 mg/dl (70-99); Potassium 3.4 mmol/L (3.5-5.1); Sodium 140 mmol/L (135-145); eGFR > 60.00
[2024-11-12] MEDS: ANCEF 10 IV ×2 (09:56→17:22)
--- NOTE | 2024-11-12 10:12 | W.PN.URO.CBU ---
Today's Communication / Plan
-
Hold blood thinners (Plavix/Eliquis)
Monitor hematuria
Plan for right ULS (Dr. Chau) on 11/15
Assessment / Plan
-
84F with sepsis and obstructing R ureteral stone
s/p cysto ureteral stent placement 11/07
Hematuria
- Unfortunately blood thinners with indwelling stent and ureteral stone are causing persistent hematuria enough to drop HGB
- Hold blood thinners
- Trend HGB, transfuse as needed
- Mejia and irrigation if patient unable to void/large clots
- Discussed with patient's daughter/POA different options - remain inpatient until blood thinners washed out then complete ureteroscopy/stone removal, vs hold blood thinners outpatient until after an outpatient ureteroscopy is completed. Reviewed
risks and benefits of each. Daughter at this time prefers patient to remain inpatient until stone can be removed
- Schedule for right ureteroscopy/laser lithotripsy on Thursday and will hopefully be able to leave stent out as well
- Continue abx course per ID
- Repeat culture sent in OR from urine behind stone - Klebsiella
- Continue abx through date of procedure
Diagnosis
-
Date of Service: November 12, 2024
-
Patient Diagnosis:
Sepsis
Obstructing R ureteral stone
Gross hematuria
11/07: s/p right stent placement
Subjective
-
Persistent gross hematuria since catheter removal with some voided clots
Hgb stabilized x48 hrs
Patient voiding w/o difficulty
No flank pain or dysuria
Objective
-
Vital Signs
Temp Pulse Resp BP Pulse Ox
98.3 F 60 16 135/65 96
11/12/24 07:23 11/12/24 07:23 11/12/24 07:23 11/12/24 07:23 11/12/24 07:23
Intake and Output
11/11/24 11/12/24 11/13/24
06:59 06:59 06:59
Intake Total 550 / 550 180 / 180 120 / 120
Balance 550 / 550 180 / 180 120 / 120
Intake:
Oral fluids 550 / 550 180 / 180 120 / 120
Other:
Number of approximated SMALL 1
amounts of urine
Number of approximated MODERATE 3 2
amounts of urine
Number of approximated LARGE 2 3
amounts of urine
Laboratory Results
11/12/24 09:10
11/12/24 09:10
Physical Exam
-
General - well developed, well nourished, no acute distress
Abdomen - soft, non-tender
Neuro - AOx3, no motor deficits
Extremities - no clubbing, no cyanosis, no edema
Care Review
Data Reviewed
Discussed with: Hospitalist and Nursing
CT Scan: Report Pers Reviewed and Image Pers Reviewed
[2024-11-12] MEDS: KCL 40 MEQ PO (10:54)
--- NOTE | 2024-11-12 11:29 | W.PN.ID1 ---
Date of Service
Date of Service: November 12, 2024
Today's Communication
Continue antibiotics.
Assessment / Plan
Fever
Nephrolithiasis
Bacteriuria
Obstructive uropathy
Leukocytosis; improved
Recommendations:
Urine culture with Klebsiella pneumoniae. [place] count low, although may be related to prior obstruction. Patient is status post JJ stent placement
Agree with transition to cefazolin for now.
At discharge, transition to cephalexin 500 mg p.o. 4 times daily, to complete a 14-day course in total (for possible pyelonephritis)
Chief Complaint
-: Leukocytosis (nephrolithiasis with obstruction) and Other (hematuria with drop in Hgb)
Subjective / Review of Systems
Pt seen / examined. Reports feeling anxious.
Review of Systems: No Fever, No Chills, No Abdominal Pain and No Dysuria
Vital Signs / Physical Exam
Vital Signs
Vital Signs
Temp Pulse Resp BP Pulse Ox
97.9 F 60 16 129/68 98
11/12/24 11:14 11/12/24 11:14 11/12/24 11:14 11/12/24 11:14 11/12/24 11:14
Physical Exam
Constitutional: No Acute Distress, Comfortable and Non-toxic
Cardiovascular: S1/S2; Negative S3/S4
Pulmonary: Non Labored
Gastrointestinal: Non Distended
Genito-Urinary: Negative CVA Tenderness
Neurological: Awake and Alert
Psychological: Calm
Objective Data
Lab Data
Lab Results
11/12/24 09:10
11/12/24 09:10
Estimated Creat Clear 41 ml/min 11/12/24 09:10
Lactic Acid 1.6 mmol/L (0.7-2.0) 11/07/24 11:05
Total Bilirubin 0.8 mg/dl (0.2-1.3) 11/07/24 11:05
AST 27 U/L (14-36) 11/07/24 11:05
ALT 24 U/L (0-35) 11/07/24 11:05
Alkaline Phosphatase 64 U/L (38-126) 11/07/24 11:05
Most recent labs reviewed.
Micro Results:
11/07/24 11:06 Blood Culture - Final
Blood/Venous No Growth - Final Report
11/07/24 11:21 Blood Culture - Preliminary
Blood/Venous No Growth in 4 days- Final report to follow
11/07/24 Unknown Urine Culture - Final
Urine Klebsiella pneumoniae
11/07/24 11:19 Urine Culture - Final
Urine
11/07/24 11:19 Influenza Types A & B (CHRISTIE) - Final
Nasal Swab Negative for Influenza A & B, NAAT
Negative results must be combined with clinical observations
and patient history.
Nucleic Acid Amplification test (NAAT)performed on the
[employer] platform.
Urine Culture Final 11/11/24-0831
CC: 2,000 CFU/ML Klebsiella pneumoniae
Organism 1 Klebsiella pneumoniae
1. Klebsiella pneumoniae
M.I.C. RX
--------- ---
Amoxicillin/Potas. Clavulanate <=8/4 S
Ampicillin >16 R
Ampicillin/Sulbactam 8/4 S
Aztreonam <=4 S
Cefazolin <=2 S
Ertapenem <=0.5 S
Ciprofloxacin <=0.25 S
Gentamicin <=2 S
Meropenem <=1 S
Nitrofurantoin-Urine Only 64 I
Piperacillin/Tazobactam <=8 S
Tetracycline <=4 S
Tobramycin <=2 S
Trimethoprim/Sulfamethoxazole <=2/38 S
Imaging:
11/07/2024 CT abdomen/pelvis without contrast: A 7 mm calculus in the proximal right ureter with moderate hydroureteronephrosis. Also noted is a nonobstructing left intrarenal calculi. Right perinephric soft tissue stranding noted. No perinephric
fluid collection identified.
Care Review
Plan reviewed with: Physician (Hospitalist)
--- NOTE | 2024-11-12 11:50 | CM ---
Patient seen at bedside
cont on antibiotics
Plan for ureteroscopy Thursday
Referral in [facility] for [facility]
PLAN: Home with [facility] when stable
[2024-11-12] MEDS: XALATAN OPHTHALMIC SOLUTION 1 DROP LEFT EYE (19:38)
[2024-11-12] MEDS: CRESTOR 20 MG PO (21:31)
[2024-11-13] MEDS: ANCEF 10 IV ×3 (01:19→17:32)
[2024-11-13 03:00] VITALS: BP 158/73
[2024-11-13 06:00] LABS: Hematocrit 32.4 % (37.0-47.0); Hemoglobin 10.7 g/dL (12.0-16.0); Mean Corp Hgb Conc. 33.0 g/dL (33.0-37.0); Mean Corpuscular Volume 85.9 fL (81.0-99.0); Platelet Count 165 10^3/uL (130-400); Red Cell Dist. Width 17.3 % (11.5-14.5)
[2024-11-13 06:31] LABS: Blood Urea Nitrogen 10 mg/dl (7-17); Calcium 8.5 mg/dl (8.4-10.2); Carbon Dioxide 26 mmol/L (22-30); Chloride 109 mmol/L (98-107); Estimated Creatinine Clearance 48 ml/min; Glucose 101 mg/dl (70-99); Potassium 3.3 mmol/L (3.5-5.1); Sodium 140 mmol/L (135-145); eGFR > 60.00
[2024-11-13 07:00] VITALS: BP 140/79
[2024-11-13] MEDS: PACERONE 200 MG PO (07:23)
[2024-11-13] MEDS: COLACE 100 MG PO ×2 (07:23→20:17)
[2024-11-13] MEDS: TIMOPTIC 0.5% OPHTHALMIC SOLUTION 1 DROP LEFT EYE ×2 (07:23→20:15)
[2024-11-13] MEDS: PROTONIX 40 MG PO (07:23)
--- NOTE | 2024-11-13 09:33 | W.PN.HOSP.TC ---
Today's Communication/Plan
-
see plan
Assessment / Plan
Assessment / Plan
Gen: continues to remain NAD, Awake and alert
Neck: supple.
CV: maninder, reg rhythm, +S1/S2, no m/r/g.
Resp: CTAB anteriorly, no rales, wheezes, or rhonchi.
Skin: No rashes.
Neuro: remains CN 2-12 intact, non-focal.
Psych: Normal mood and affect.
11/07/24 11:21 Blood/Venous Blood Culture - Final
No Growth - Final Report
11/07/24 11:06 Blood/Venous Blood Culture - Final
No Growth - Final Report
11/07/24 Unknown Urine Urine Culture - Final
Klebsiella pneumoniae
11/07/24 11:19 Urine Urine Culture - Final
11/07/24 11:19 Nasal Swab Influenza Types A & B (CHRISTIE) - Final
Negative for Influenza A & B, NAAT
Negative results must be combined with clinical observations
and patient history.
Nucleic Acid Amplification test (NAAT)performed on the
[employer] platform.
CT A/P: 7.7 mm calculus in the proximal right ureter with moderate obstructive uropathy. Nonobstructing left intrarenal calculi. Gallbladder distention with cholelithiasis and concentrated bile. No apparent wall thickening. Constipation with large
colonic fecal burden. No bowel obstruction. 2 cm stable infrarenal abdominal aortic aneurysm. Third spacing. Trace free pelvic fluid, nonspecific.
Sepsis due to UTI/pyelonephritis due to R ureteral calculus with moderate obstructive uropathy:
-taken to the OR emergently for R ureteral stent 11/07/24
-s/p IVFs
-was on Cefepime, de-escalated to Ancef on 11/12/24 based on intraop UCx
-BCxs NGTD
-leukocytosis has resolved
-with hematuria (acute blood loss anemia exacerbated by Plavix/Eliquis), now nearly resolved
-urology/ID following
-ureteroscopy on 11/15/24
Chronic atrial fibrillation:
-cont Amio
-Eliquis on hold as above
-BB stopped with bradycardia
Other problems:
Hypokalemia: 40meq PO K, check Mg
GERD: cont PPI
HLD: cont statin
CAD with h/o NSTEMI: cont statin. BB stopped with bradycardia. Plavix on hold as above.
h/o DVT: cont Eliquis
DNR/Eliquis
Anticipated Discharge: 24 - 48 hours
Subjective/Interval History
-
Date of Service: November 13, 2024
Hematuria has improved significantly (nearly resolved).
Objective Data
-
Labs:
Laboratory Results
11/13/24
05:27
WBC 8.1
Hgb 10.7 L
Hct 32.4 L
Plt Count 165
Sodium 140
Potassium 3.3 L
Chloride 109 H
Carbon Dioxide 26
BUN 10
Creatinine 0.6
Glucose 101 H
Calcium 8.5
Vital Signs:
Vital Signs
Temp Pulse Resp BP Pulse Ox
98.7 F 54 16 140/79 95
11/13/24 07:00 11/13/24 07:00 11/13/24 07:00 11/13/24 07:00 11/13/24 07:00
I&O
11/12/24 11/13/24 11/14/24
06:59 06:59 06:59
Intake Total 180 / 180 600 / 600
Balance 180 / 180 600 / 600
[2024-11-13] MEDS: KCL 40 MEQ PO (10:08)
[2024-11-13 10:13] LABS: Magnesium 2.2 mg/dl (1.6-2.3)
[2024-11-13 11:00] VITALS: BP 159/75
[2024-11-13 15:00] VITALS: BP 152/72
[2024-11-13] MEDS: XALATAN OPHTHALMIC SOLUTION 1 DROP LEFT EYE (20:19)
[2024-11-13] MEDS: CRESTOR 20 MG PO (21:49)
[2024-11-13] MEDS: CRESTOR PO (21:50)
[2024-11-13 23:00] VITALS: BP 167/76
[2024-11-14] MEDS: ANCEF 10 IV ×3 (01:53→17:40)
[2024-11-14 07:00] VITALS: BP 144/71
[2024-11-14 07:41] LABS: Hematocrit 36.8 % (37.0-47.0); Hemoglobin 12.0 g/dL (12.0-16.0); Mean Corp Hgb Conc. 32.6 g/dL (33.0-37.0); Mean Corpuscular Volume 87.4 fL (81.0-99.0); Platelet Count 198 10^3/uL (130-400); Red Cell Dist. Width 17.2 % (11.5-14.5)
[2024-11-14] MEDS: PROTONIX 40 MG PO (07:46)
[2024-11-14] MEDS: PACERONE 200 MG PO (07:47)
[2024-11-14] MEDS: COLACE 100 MG PO ×2 (07:49→20:21)
[2024-11-14] MEDS: TIMOPTIC 0.5% OPHTHALMIC SOLUTION 1 DROP LEFT EYE ×2 (07:55→20:21)
[2024-11-14 09:07] LABS: Blood Urea Nitrogen 11 mg/dl (7-17); Calcium 8.8 mg/dl (8.4-10.2); Carbon Dioxide 26 mmol/L (22-30); Chloride 109 mmol/L (98-107); Estimated Creatinine Clearance 41 ml/min; Glucose 88 mg/dl (70-99); Potassium 3.8 mmol/L (3.5-5.1); Sodium 140 mmol/L (135-145); eGFR > 60.00
--- NOTE | 2024-11-14 11:21 | W.PN.ID1 ---
Date of Service
Date of Service: November 14, 2024
Today's Communication
Continue antibiotics. See below�
Assessment / Plan
Fever
- Resolved
Nephrolithiasis
Bacteriuria
Obstructive uropathy
Leukocytosis; improved
Recommendations:
Urine culture with Klebsiella pneumoniae. [place] count low, although may be related to prior obstruction. Patient is status post JJ stent placement
Continue cefazolin for now.
Await ureteroscopy.
If otherwise stable, at discharge, transition to cephalexin 500 mg p.o. 4 times daily, to complete a 14-day course in total (for possible pyelonephritis)
����������������������������������������������������������
Chief Complaint
-: Leukocytosis (nephrolithiasis with obstruction) and Other (hematuria with drop in Hgb)
Subjective / Review of Systems
Review of Systems: No Fever, No Chills, No Abdominal Pain and No Dysuria
Vital Signs / Physical Exam
Vital Signs
Vital Signs
Temp Pulse Resp BP Pulse Ox
97.5 F 54 16 144/71 96
11/14/24 07:00 11/14/24 07:47 11/14/24 07:00 11/14/24 07:47 11/14/24 08:44
Physical Exam
Constitutional: No Acute Distress, Comfortable and Non-toxic
Cardiovascular: S1/S2; Negative S3/S4
Pulmonary: Non Labored
Gastrointestinal: Non Distended
Genito-Urinary: Negative CVA Tenderness
Neurological: Awake and Alert
Psychological: Calm
Objective Data
Lab Data
Lab Results
11/14/24 07:32
11/14/24 07:32
Estimated Creat Clear 41 ml/min 11/14/24 07:32
Lactic Acid 1.6 mmol/L (0.7-2.0) 11/07/24 11:05
Total Bilirubin 0.8 mg/dl (0.2-1.3) 11/07/24 11:05
AST 27 U/L (14-36) 11/07/24 11:05
ALT 24 U/L (0-35) 11/07/24 11:05
Alkaline Phosphatase 64 U/L (38-126) 11/07/24 11:05
Most recent labs reviewed.
Micro Results:
11/07/24 11:21 Blood Culture - Final
Blood/Venous No Growth - Final Report
11/07/24 11:06 Blood Culture - Final
Blood/Venous No Growth - Final Report
11/07/24 Unknown Urine Culture - Final
Urine Klebsiella pneumoniae
11/07/24 11:19 Urine Culture - Final
Urine
11/07/24 11:19 Influenza Types A & B (CHRISTIE) - Final
Nasal Swab Negative for Influenza A & B, NAAT
Negative results must be combined with clinical observations
and patient history.
Nucleic Acid Amplification test (NAAT)performed on the
[employer] platform.
Urine Culture Final 11/11/24-0831
CC: 2,000 CFU/ML Klebsiella pneumoniae
Organism 1 Klebsiella pneumoniae
1. Klebsiella pneumoniae
M.I.C. RX
--------- ---
Amoxicillin/Potas. Clavulanate <=8/4 S
Ampicillin >16 R
Ampicillin/Sulbactam 8/4 S
Aztreonam <=4 S
Cefazolin <=2 S
Ertapenem <=0.5 S
Ciprofloxacin <=0.25 S
Gentamicin <=2 S
Meropenem <=1 S
Nitrofurantoin-Urine Only 64 I
Piperacillin/Tazobactam <=8 S
Tetracycline <=4 S
Tobramycin <=2 S
Trimethoprim/Sulfamethoxazole <=2/38 S
Imaging:
11/07/2024 CT abdomen/pelvis without contrast: A 7 mm calculus in the proximal right ureter with moderate hydroureteronephrosis. Also noted is a nonobstructing left intrarenal calculi. Right perinephric soft tissue stranding noted. No perinephric
fluid collection identified.
--- NOTE | 2024-11-14 12:07 | W.PN.HOSP.TC ---
Today's Communication/Plan
-
Assessment / Plan
Assessment / Plan
NAD, sitting up in bedside chair. Talking to her daughter
Scleral Anicteric
MMM
No JVD
CTABL
RRR, S1/S2
Soft, NT, ND, BS+
Warm, Dry
AAOx3
Calm
Sepsis due to UTI/pyelonephritis due to R ureteral calculus with moderate obstructive uropathy:
-taken to the OR emergently for R ureteral stent 11/07/24
-s/p IVFs
-was on Cefepime, de-escalated to Ancef on 11/12/24 based on intraop UCx
-BCxs NGTD
-leukocytosis has resolved
- No further hematuria
-urology/ID following
-ureteroscopy on 11/15/24
Chronic atrial fibrillation:
-cont Amio
-Eliquis on hold as above
-BB stopped with bradycardia
Other problems:
Hypokalemia: 40meq PO K, check Mg
GERD: cont PPI
HLD: cont statin
CAD with h/o NSTEMI: cont statin. BB stopped with bradycardia. Plavix on hold as above.
h/o DVT: cont Eliquis
DNR/Eliquis
Anticipated Discharge: 24 - 48 hours
Subjective/Interval History
-
Date of Service: November 14, 2024
seen and examined. no new complaints. no acute overnight events
Objective Data
-
Labs:
Laboratory Results
11/14/24
07:32
WBC 6.4
Hgb 12.0
Hct 36.8 L
Plt Count 198
Sodium 140
Potassium 3.8
Chloride 109 H
Carbon Dioxide 26
BUN 11
Creatinine 0.7
Glucose 88
Calcium 8.8
Vital Signs:
Vital Signs
Temp Pulse Resp BP Pulse Ox
97.5 F 54 16 144/71 96
11/14/24 07:00 11/14/24 07:47 11/14/24 07:00 11/14/24 07:47 11/14/24 08:44
I&O
11/13/24 11/14/24 11/15/24
06:59 06:59 06:59
Intake Total 600 / 600 420 / 420
Balance 600 / 600 420 / 420
--- NOTE | 2024-11-14 12:11 | CM ---
Patient seen at bedside
npo tonight
ureteroscopy on 11/15/24
referral in [facility] for [facility]
PLAN: Home with [facility] when stable
[2024-11-14 15:00] VITALS: BP 149/80
[2024-11-14] MEDS: XALATAN OPHTHALMIC SOLUTION 1 DROP LEFT EYE (20:21)
[2024-11-14] MEDS: CRESTOR 20 MG PO (21:12)
[2024-11-14 23:00] VITALS: BP 136/57
[2024-11-15] VITALS (7 sets, daily range): BP systolic 134–166; BP diastolic 52–77
[2024-11-15] MEDS: ANCEF 10 IV ×2 (02:04→09:17)
[2024-11-15 06:40] LABS: Hematocrit 34.2 % (37.0-47.0); Hemoglobin 11.2 g/dL (12.0-16.0); Mean Corp Hgb Conc. 32.7 g/dL (33.0-37.0); Mean Corpuscular Volume 86.1 fL (81.0-99.0); Platelet Count 183 10^3/uL (130-400); Red Cell Dist. Width 16.9 % (11.5-14.5)
[2024-11-15] MEDS: COLACE 100 MG PO (07:40)
[2024-11-15] MEDS: PROTONIX 40 MG PO (07:40)
[2024-11-15] MEDS: PACERONE 200 MG PO (07:40)
[2024-11-15] MEDS: TIMOPTIC 0.5% OPHTHALMIC SOLUTION 1 DROP LEFT EYE (07:43)
[2024-11-15 07:46] LABS: Blood Urea Nitrogen 15 mg/dl (7-17); Calcium 8.4 mg/dl (8.4-10.2); Carbon Dioxide 27 mmol/L (22-30); Chloride 108 mmol/L (98-107); Estimated Creatinine Clearance 41 ml/min; Glucose 99 mg/dl (70-99); Potassium 3.7 mmol/L (3.5-5.1); Sodium 139 mmol/L (135-145); eGFR > 60.00
--- NOTE | 2024-11-15 09:07 | W.PN.ID1 ---
Date of Service
Date of Service: November 15, 2024
Today's Communication
Continue antibiotics. See below�
Assessment / Plan
Fever
- Resolved
Nephrolithiasis
Bacteriuria
Obstructive uropathy
Leukocytosis
- resolved
Recommendations:
Urine culture with Klebsiella pneumoniae. [place] count low, although may be related to obstruction. Patient is status post JJ stent placement
Continue cefazolin (d#8 abx) for today.
Await ureteroscopy.
If otherwise stable, at discharge would transition to cephalexin 500 mg p.o. 4 times daily, to complete a 14-day course in total (for possible pyelonephritis); through 11/21/24
����������������������������������������������������������
Chief Complaint
-: Leukocytosis (nephrolithiasis with obstruction) and Other (hematuria with drop in Hgb)
Subjective / Review of Systems
Review of Systems: No Fever, No Chills, No Headache, No Abdominal Pain and No Dysuria
Vital Signs / Physical Exam
Vital Signs
Vital Signs
Temp Pulse Resp BP Pulse Ox
97.8 F 53 14 134/68 98
11/15/24 07:46 11/15/24 07:46 11/15/24 07:46 11/15/24 07:46 11/15/24 08:50
Physical Exam
Constitutional: No Acute Distress, Comfortable and Non-toxic
Cardiovascular: S1/S2; Negative S3/S4
Pulmonary: Non Labored
Gastrointestinal: Non Distended
Genito-Urinary: Negative CVA Tenderness
Neurological: Awake and Alert
Psychological: Calm
Objective Data
Lab Data
Lab Results
11/15/24 06:30
11/15/24 06:30
Estimated Creat Clear 41 ml/min 11/15/24 06:30
Lactic Acid 1.6 mmol/L (0.7-2.0) 11/07/24 11:05
Total Bilirubin 0.8 mg/dl (0.2-1.3) 11/07/24 11:05
AST 27 U/L (14-36) 11/07/24 11:05
ALT 24 U/L (0-35) 11/07/24 11:05
Alkaline Phosphatase 64 U/L (38-126) 11/07/24 11:05
Most recent labs reviewed.
Micro Results:
11/07/24 11:21 Blood Culture - Final
Blood/Venous No Growth - Final Report
11/07/24 11:06 Blood Culture - Final
Blood/Venous No Growth - Final Report
11/07/24 Unknown Urine Culture - Final
Urine Klebsiella pneumoniae
11/07/24 11:19 Urine Culture - Final
Urine
11/07/24 11:19 Influenza Types A & B (CHRISTIE) - Final
Nasal Swab Negative for Influenza A & B, NAAT
Negative results must be combined with clinical observations
and patient history.
Nucleic Acid Amplification test (NAAT)performed on the
[employer] platform.
Urine Culture Final 11/11/24-830
CC: 2,000 CFU/ML Klebsiella pneumoniae
Organism 1 Klebsiella pneumoniae
1. Klebsiella pneumoniae
M.I.C. RX
--------- ---
Amoxicillin/Potas. Clavulanate <=8/4 S
Ampicillin >16 R
Ampicillin/Sulbactam 8/4 S
Aztreonam <=4 S
Cefazolin <=2 S
Ertapenem <=0.5 S
Ciprofloxacin <=0.25 S
Gentamicin <=2 S
Meropenem <=1 S
Nitrofurantoin-Urine Only 64 I
Piperacillin/Tazobactam <=8 S
Tetracycline <=4 S
Tobramycin <=2 S
Trimethoprim/Sulfamethoxazole <=2/38 S
Imaging:
11/07/2024 CT abdomen/pelvis without contrast: A 7 mm calculus in the proximal right ureter with moderate hydroureteronephrosis. Also noted is a nonobstructing left intrarenal calculi. Right perinephric soft tissue stranding noted. No perinephric
fluid collection identified.
--- NOTE | 2024-11-15 11:53 | W.IMMPOSTOP ---
Surgical Immed Post Op Note
-
Primary Surgeon: Peffer
Assisting Surgeon: -
Pre-op Diagnosis: R ureteral stone
Post-op Diagnosis: same
Procedure Performed: R ureteroscopy, laser, stone and stent removal
Anesthesia Type: gen
Specimen / Cultures: stone
Estimated Blood Loss: 1cc
Complications: -
Operative Findings: -
--- NOTE | 2024-11-15 11:54 | W.PN.URO.CBU ---
Today's Communication / Plan
-
Okay to resume blood thinners
Continue antibiotic course per ID
Stable for discharge from urology standpoint today if comfortable and hematuria resolved or minimal
Outpatient follow up for additional discussion
Assessment / Plan
-
84F with sepsis and obstructing R ureteral stone
s/p cysto ureteral stent placement 11/07
now s/p R ureteroscopy, laser lithotripsy, stone removal, stent removal 11/15/24
Hematuria
- resolved off anticoagulation
- Now that stone and stent are removed hematuria should not be an issue after 1-2 days
- Okay to resume blood thinners
Continue antibiotic course per ID
Stable for discharge from urology standpoint today if comfortable and hematuria resolved or minimal
Outpatient follow up for additional discussion
Diagnosis
-
Date of Service: November 15, 2024
-
Patient Diagnosis:
Sepsis
Obstructing R ureteral stone
Gross hematuria
11/07: s/p right stent placement
11/15 R ureteroscopy
Subjective
-
n/a
Objective
-
Vital Signs
Temp Pulse Resp BP Pulse Ox
97.1 F 63 14 150/68 100
11/15/24 11:32 11/15/24 11:33 11/15/24 07:46 11/15/24 11:32 11/15/24 11:33
Intake and Output
11/14/24 11/15/24 11/16/24
06:59 06:59 06:59
Intake Total 420 / 420 420 / 420
Output Total 120 / 120
Balance 420 / 420 300 / 300
Intake:
Oral fluids 420 / 420 420 / 420
Output:
Urine, Voided 120 / 120
Other:
Number of approximated MODERATE 2
amounts of urine
Laboratory Results
11/15/24 06:30
11/15/24 06:30
Physical Exam
-
General - well developed, well nourished, no acute distress
Chest - clear
Abdomen - soft, non-tender
--- NOTE | 2024-11-15 13:16 | W.DCSUMMARY ---
Discharge Summary
Discharge Data
Date of Admission: 11/07/24
Date of Discharge: 11/15/24
-
Pending Results: No
Hospital Course
84-year-old female with past medical history significant for atrial fibrillation, hyperlipidemia, GERD, Hx NSTEMI and Hx DVT
Presented with acute onset of hematuria along with fever rigors and change in mental status. Concern for urinary source infection has urine analysis demonstrated leukocyte esterase WBCs many bacteria urine with blood. Therefore, additional concern
for stones as noted provide. Therefore CT abdomen pelvis obtained which demonstrated 7.7 mm calculus in the proximal right ureter with moderate obstructive uropathy. Nonobstructing left intrarenal calculi. Started on IV antibiotics. Urology
consulted and was taken to the OR for a cystoscopy with urethral stent placement. Unfortunately, continue to have gross hematuria therefore urology and family made a patient centered decision to complete ureteroscopy with stone removal and hold
anticoagulation until November 15. ID was consulted started on cefepime which was transitioned to cefazolin and with recommendations to transition on discharge to cephalexin 500 mg p.o. 4 times daily to complete 14-day course in total for possible
pyelonephritis.
Per urology can expect bleeding/hematuria 1 to 2 days postprocedure
Additionally, should be noted CT did demonstrate a 2 cm stable infrarenal abdominal aortic aneurysm. Will need outpatient vascular surgery follow-up.
Of note found to be bradycardic therefore metoprolol was discontinued and will need outpatient follow-up with cardiology.
CT abdomen pelvis
IMPRESSION:
7.7 mm calculus in the proximal right ureter with moderate obstructive uropathy. Nonobstructing left intrarenal calculi.
Gallbladder distention with cholelithiasis and concentrated bile. No apparent wall thickening.
Constipation with large colonic fecal burden. No bowel obstruction.
2 cm stable infrarenal abdominal aortic aneurysm.
Third spacing.
Trace free pelvic fluid, nonspecific.
Seen and examined. No new complaints. No acute overnight events.
Tolerated procedure well.
NAD, sitting up in bedside chair. Talking to her daughter
Scleral Anicteric
MMM
No JVD
CTABL
RRR, S1/S2
Soft, NT, ND, BS+
Warm, Dry
AAOx3
Calm
Discharge Plan
-
Patient Disposition: Home (Routine Discharge)
Discharge Diagnosis/Procedures: UTI - Klebsiella
Nephrolithiasis with moderate obstructive uropathy
Diet: As tolerated, Diabetic, Carb Controlled and No added salt
Activity: As tolerated
Activity Restrictions/Additional Instructions:
Presented with acute onset of hematuria along with fever rigors and change in mental status. Concern for urinary source infection has urine analysis demonstrated leukocyte esterase WBCs many bacteria urine with blood. Therefore, additional concern
for stones as noted provide. Therefore CT abdomen pelvis obtained which demonstrated 7.7 mm calculus in the proximal right ureter with moderate obstructive uropathy. Nonobstructing left intrarenal calculi. Started on IV antibiotics. Urology
consulted and was taken to the OR for a cystoscopy with urethral stent placement. Unfortunately, continue to have gross hematuria therefore urology and family made a patient centered decision to complete ureteroscopy with stone removal and hold
anticoagulation until November 15. ID was consulted started on cefepime which was transitioned to cefazolin and with recommendations to transition on discharge to cephalexin 500 mg p.o. 4 times daily to complete 14-day course in total for possible
pyelonephritis.
Per urology can expect bleeding/hematuria 1 to 2 days postprocedure
Additionally, should be noted CT did demonstrate a 2 cm stable infrarenal abdominal aortic aneurysm. Will need outpatient vascular surgery follow-up.
Of note found to be bradycardic therefore metoprolol was discontinued and will need outpatient follow-up with cardiology.
CT abdomen pelvis
IMPRESSION:
7.7 mm calculus in the proximal right ureter with moderate obstructive uropathy. Nonobstructing left intrarenal calculi.
Gallbladder distention with cholelithiasis and concentrated bile. No apparent wall thickening.
Constipation with large colonic fecal burden. No bowel obstruction.
2 cm stable infrarenal abdominal aortic aneurysm.
Third spacing.
Trace free pelvic fluid, nonspecific.
Referrals:
Jayson Rodríguez MD [Active, Cardiology] - in one to two days
Niraj Chau MD [Active, Urology] - in one to two weeks
Carlos Alberto Delgado MD [Active, Vascular Surgery] - in one to two weeks
Wallace Melton DO [Family Provider, Internal Medicine]
Additional Discharge Medication Instructions: Start: Cephalexin 500 mg 4 times a day with last dose on 11/21/2024
Resume: Plavix and Eliquis twice a day on per urology
Stop: metoprolol was stopped for bradycardia
Prescriptions:
New
cephalexin 500 mg capsule
500 mg PO QID Qty: 24 0RF
Continued
rosuvastatin 20 MG tablet
20 mg PO HS
latanoprost 0.005 % Drops
1 drp LEFT EYE HS
timolol 0.5 % Drops
1 drp LEFT EYE BID
pantoprazole 40 MG tablet,delayed release (DR/EC)
40 mg PO DAILY
amiodarone 200 mg Tablet
200 mg PO DAILY Qty: 30 11RF
Held
Eliquis 2.5 mg Tablet
2.5 mg PO BID Qty: 60 11RF
Hold Instructions: Resume on 11/17/24. resume on morning per Urology
clopidogrel 75 mg Tablet
75 mg PO DAILY Qty: 30 11RF
Hold Instructions: Resume on 11/17/24. Resume on
Discontinued
metoprolol succinate 25 mg tablet extended release 24 hr
25 mg PO HS
Discharge Orders:
Discharge Patient (As Directed); Ordered 11/15/24
Ordered By: Chuckie Romo
Discharge Date and Time
Print Language: MALAWIAN
--- NOTE | 2024-11-15 14:24 | CM ---
MD entered order for discharge.
Pt returned from surgery.
Spoke with pt she said she is ready for discharge.
Spoke with son Maurilio he and pt agree with dc to home today with [facility].
Emerald devongerber will be driving her home today.
PLAN Home with [facility]
== END 2024-11-15 16:07 | disposition home health service (06) | DRG 854 ==
LOC: 3 WEST ACU 15:12
PROVIDERS: Internal Medicine; Nurse Practitioner Family; ADMITTING PHYSICIAN Internal Medicine; ATTENDING PHYSICIAN Hospitalist; CONSULT PHYSICIAN Urology; EMERGENCY PHYSICIAN Student in an Organized Health Care Education/Training Program; FAMILY PHYSICIAN Internal Medicine; OTHER PHYSICIAN Hospitalist
PROC: 0T768DZ Dilation of Right Ureter with Intraluminal Device, Via Natural or Artificial Opening Endoscopic (ICD-10-PCS; 2024-11-07)
PROC: 0TC68ZZ Extirpation of Matter from Right Ureter, Via Natural or Artificial Opening Endoscopic (ICD-10-PCS; 2024-11-15)
DX: A41.9 Sepsis, unspecified organism (principal); D62 Acute posthemorrhagic anemia; D68.32 Hemorrhagic disorder due to extrinsic circulating anticoagulants; I48.20 Chronic atrial fibrillation, unspecified; N13.6 Pyonephrosis; I95.9 Hypotension, unspecified; K21.9 Gastro-esophageal reflux disease without esophagitis; E78.00 Pure hypercholesterolemia, unspecified; I71.43 Infrarenal abdominal aortic aneurysm, without rupture; I10 Essential (primary) hypertension; R00.1 Bradycardia, unspecified; K59.00 Constipation, unspecified; K80.20 Calculus of gallbladder without cholecystitis without obstruction; B96.1 Klebsiella pneumoniae [K. pneumoniae] as the cause of diseases classified elsewhere; I25.10 Atherosclerotic heart disease of native coronary artery without angina pectoris; F03.90 Unspecified dementia, unspecified severity, without behavioral disturbance, psychotic disturbance, mood disturbance, and anxiety; Z66 Do not resuscitate; I25.2 Old myocardial infarction; Z86.718 Personal history of other venous thrombosis and embolism; Z11.52 Encounter for screening for COVID-19; Z79.899 Other long term (current) drug therapy; Z79.01 Long term (current) use of anticoagulants; Z79.02 Long term (current) use of antithrombotics/antiplatelets
CPT/HCPCS: 74018; 74176; 76000; 80048; 80053; 81003; 81015; 82365; 83605; 83735; 85025; 85027; 87040; 87077; 87086; 87186; 87502; 87811; 93005; 96361; 96374; 97116; 97162; 99285; C1769; C1894; C2617

== ENCOUNTER → 2024-11-28 14:42 | Outpatient (REF) | payer MEDICARE, OTHER, SELFPAY ==
[2024-11-28 15:29] LABS: Blood Urea Nitrogen 12 mg/dl (7-17); Calcium 9.1 mg/dl (8.4-10.2); Carbon Dioxide 31 mmol/L (22-30); Chloride 101 mmol/L (98-107); Glucose 101 mg/dl (70-99); Potassium 3.1 mmol/L (3.5-5.1); Sodium 137 mmol/L (135-145); eGFR > 60.00
== END ==
LOC: CLAB 14:42
PROVIDERS: ATTENDING PHYSICIAN Internal Medicine; OTHER PHYSICIAN Internal Medicine Interventional Cardiology
DX: I21.4 Non-ST elevation (NSTEMI) myocardial infarction (principal)
CPT/HCPCS: 36415; 80048

== ENCOUNTER → 2024-12-02 10:33 | Outpatient (REF) | payer MEDICARE, OTHER, SELFPAY ==
[2024-12-02 11:07] LABS: Hematocrit 34.9 % (37.0-47.0); Hemoglobin 11.5 g/dL (12.0-16.0); Mean Corp Hgb Conc. 33.0 g/dL (33.0-37.0); Mean Corpuscular Volume 88.1 fL (81.0-99.0); Nucleated Red Blood Cells % 0 %; Platelet Count 198 10^3/uL (130-400); Red Cell Dist. Width 17.1 % (11.5-14.5)
[2024-12-02 11:16] LABS: ALT (SGPT) 15 U/L (0-35); AST (SGOT) 18 U/L (14-36); Albumin 3.8 g/dl (3.5-5.0); Alkaline Phosphatase 47 U/L (38-126); Blood Urea Nitrogen 12 mg/dl (7-17); Calcium 8.9 mg/dl (8.4-10.2); Carbon Dioxide 31 mmol/L (22-30); Chloride 106 mmol/L (98-107); Glucose 98 mg/dl (70-99); Potassium 3.1 mmol/L (3.5-5.1); Sodium 138 mmol/L (135-145); Total Protein 6.1 g/dl (6.3-8.2); eGFR > 60.00
== END ==
LOC: CLAB 10:33
PROVIDERS: ATTENDING PHYSICIAN Internal Medicine; REFERRING PHYSICIAN Nurse Practitioner Family
DX: N20.0 Calculus of kidney (principal); N12 Tubulo-interstitial nephritis, not specified as acute or chronic; E87.6 Hypokalemia
CPT/HCPCS: 80053; 83880; 85025

== ENCOUNTER → 2024-12-20 10:45 | Outpatient (REF) | payer MEDICARE, OTHER, SELFPAY ==
[2024-12-20 12:04] LABS: Hematocrit 39.4 % (37.0-47.0); Hemoglobin 12.5 g/dL (12.0-16.0); Mean Corp Hgb Conc. 31.7 g/dL (33.0-37.0); Mean Corpuscular Volume 90.4 fL (81.0-99.0); Nucleated Red Blood Cells % 0 %; Platelet Count 186 10^3/uL (130-400); Red Cell Dist. Width 16.8 % (11.5-14.5)
[2024-12-20 13:54] LABS: ALT (SGPT) 14 U/L (0-35); AST (SGOT) 21 U/L (14-36); Albumin 4.3 g/dl (3.5-5.0); Alkaline Phosphatase 52 U/L (38-126); Blood Urea Nitrogen 18 mg/dl (7-17); Calcium 9.0 mg/dl (8.4-10.2); Carbon Dioxide 26 mmol/L (22-30); Chloride 105 mmol/L (98-107); Glucose 94 mg/dl (70-99); HDL Cholesterol 91 mg/dl; Potassium 4.2 mmol/L (3.5-5.1); Sodium 138 mmol/L (135-145); Total Protein 6.6 g/dl (6.3-8.2); Very Low Density Lipoprotein 15 mg/dl (0-30); eGFR > 60.00
[2024-12-20 15:13] LABS: LDL Cholesterol, Calculated 110 mg/dl
[2024-12-20 19:05] LABS: TSH 15.30 uIU/ml (0.47-4.68)
== END ==
LOC: CLAB 10:45
PROVIDERS: ATTENDING PHYSICIAN Internal Medicine; OTHER PHYSICIAN Internal Medicine Interventional Cardiology
DX: E78.5 Hyperlipidemia, unspecified (principal)
CPT/HCPCS: 36415; 80053; 80061; 84439; 84443; 85025

== ENCOUNTER → 2025-01-23 09:08 | Outpatient (REF) | payer MEDICARE, OTHER, SELFPAY ==
[2025-01-23 12:42] LABS: ALT (SGPT) 17 U/L (0-35); AST (SGOT) 22 U/L (14-36); Albumin 3.9 g/dl (3.5-5.0); Alkaline Phosphatase 50 U/L (38-126); Blood Urea Nitrogen 12 mg/dl (7-17); Calcium 8.8 mg/dl (8.4-10.2); Carbon Dioxide 33 mmol/L (22-30); Chloride 103 mmol/L (98-107); Glucose 103 mg/dl (70-99); Potassium 3.4 mmol/L (3.5-5.1); Sodium 140 mmol/L (135-145); Total Protein 6.2 g/dl (6.3-8.2); eGFR > 60.00
== END ==
LOC: HWRAD 09:08
PROVIDERS: ATTENDING PHYSICIAN Urology; FAMILY PHYSICIAN Internal Medicine; REFERRING PHYSICIAN Internal Medicine Interventional Cardiology
DX: N20.0 Calculus of kidney (principal); E78.2 Mixed hyperlipidemia; I10 Essential (primary) hypertension; I25.2 Old myocardial infarction; E78.5 Hyperlipidemia, unspecified
CPT/HCPCS: 36415; 74176; 80053; 84439; 84443

== ENCOUNTER → 2025-03-07 09:37 | Outpatient (REF) | payer MEDICARE, OTHER, SELFPAY | LOC: RCS 09:37 | PROVIDERS: ATTENDING PHYSICIAN Internal Medicine Interventional Cardiology; FAMILY PHYSICIAN Internal Medicine | DX: I25.2 Old myocardial infarction (principal) | CPT/HCPCS: 93306 ==